=== PATIENT | female | born 1970 | race African-American/Black ===

== ENCOUNTER → 2017-09-13 | Outpatient (CLI) | payer OTHER ==
[2017-09-13 08:59] LABS: Anisocytosis Slight; Basophils % (A) 0 %; Eosinophils # (A) 0.1 k/uL (0-0.7); Eosinophils % (A) 2 %; HCT 39.7 % (34.0-46.0); HGB 12.3 gm/dL (11.4-16.0); Hypochromasia Slight; Lymphocytes # (A) 2.3 k/uL (1.0-4.8); Lymphocytes % (A) 27 %; MCH 25.9 pg (25.0-35.0); MCV 83.5 fL (80.0-100.0); Mean Platelet Volume 6.3; Monocytes # (A) 0.4 k/uL (0-1.0); Monocytes % (A) 4 %; Neutrophils # (A) 5.4 k/uL (1.3-7.7); Neutrophils % (A) 65 %; Platelet Count 429 k/uL (150-450); RBC 4.75 m/uL (3.80-5.40); RDW 16.1 % (11.5-15.5); WBC 8.4 k/uL (3.8-10.6)
[2017-09-13 09:58] LABS: ALT 21 U/L (9-52); AST 16 U/L (14-36); Alkaline Phosphatase 72 U/L (38-126); Anion Gap 11 mmol/L; Blood Urea Nitrogen 8 mg/dL (7-17); C Reactive Protein 19.3 mg/L (<10.0); Calcium 9.2 mg/dL (8.4-10.2); Carbon Dioxide 22 mmol/L (22-30); Chloride 104 mmol/L (98-107); Cholesterol 155 mg/dL (<200); Creatine Kinase 59 U/L (30-135); Glucose 131 mg/dL (74-99); HDL Cholesterol 39 mg/dL (40-60); LDL Cholesterol,Calculated 80 mg/dL (0-99); Potassium 4.3 mmol/L (3.5-5.1); Sodium 137 mmol/L (137-145); Total Bilirubin 0.2 mg/dL (0.2-1.3); Total Protein 7.2 g/dL (6.3-8.2); Triglycerides 180 mg/dL (<150)
[2017-09-13 10:42] LABS: Erythrocyte Sedimentation Rate 21 mm/hr (0-20)
[2017-09-13 19:07] LABS: Hemoglobin A1C 5.9 % (4.0-6.0)
== END | disposition home or self-care (01) ==
LOC: LABWHC1 08:28
PROVIDERS: ATTEND Internal Medicine
DX: D64.9 Anemia, unspecified (principal); E78.5 Hyperlipidemia, unspecified; I10 Essential (primary) hypertension; E55.9 Vitamin D deficiency, unspecified; G62.9 Polyneuropathy, unspecified; G56.03 Carpal tunnel syndrome, bilateral upper limbs; Z72.0 Tobacco use
CPT/HCPCS: 36415; 80053; 80061; 82306; 82550; 83036; 84443; 85025; 85652; 86140

== ENCOUNTER → 2017-10-19 | Outpatient (CLI) | payer OTHER ==
[2017-10-19 08:00] VITALS: BP 131/86; PULSE 83; RESP 18; TEMP 97.6; BMI 34.7
--- NOTE | 2017-10-19 08:45 | P.HPOB ---
History of Present Illness H&P Date: 10/19/17 Chief Complaint: The patient is here for her routine gynecologic exam and mammogram. This is a 47-year-old with an LMP of 07/01/2017. The patient states or periods have been spacing out over the last 2 years. 2 years ago, they were starting to be every 2 or 3 months. During the past year she believes she has had two menses. She states she has been having hot flashes for the past one year. Her periods are relatively short, but when she does have a period, she has lots of cramps. She would like another prescription for Anaprox. She is otherwise without gynecologic complaints. Review of Systems She has lost about 5 pounds over the last 3 years. Respiratory: occasionally she can have a catching sharp sensation when she twists her body and takes a deep breath. She has spoken to Dr. Wood about this. She denies cardiac or G.I. problems. 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 History of Any Multi-Drug Resistant Organisms: None Reported Past Surgical History: Section Additional Past Surgical History / Comment(s): Axillary cyst removed. Past Anesthesia/Blood Transfusion Reactions: No Reported Reaction Past Psychological History: No Psychological Hx Reported Smoking Status: Current every day smoker (Half pack per day) Past Alcohol Use History: Occasional Past Drug Use History: Cocaine (Quit 1996) Additional History: She is single and is not seen anybody at this time. 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 - Past Family History Mother Family Medical History: Cancer (Pancreas) Medications and Allergies Home Medications Medication Instructions Recorded Confirmed Type Lisinopril-Hctz 20-12.5 mg 1 tab PO DAILY 10/19/17 10/19/17 History [Zestoretic 20-12.5] Allergies Allergy/AdvReac Type Severity Reaction Status Date / Time No Known Allergies Allergy Verified 01/09/15 16:58 Exam Vital Signs Temp Pulse Resp BP 10/19/17 07:50 97.6 F 83 18 131/86 Intake and Output 10/18/17 10/19/17 10/19/17 22:59 06:59 14:59 Other: Weight 88.952 kg Height 5'3", BMI 34.7. This is a well-developed well-nourished black female who is alert and oriented times 3 in no acute distress. HEENT: Within normal limits. NECK: Supple without mass or thyromegaly. CHEST AND LUNGS: Clear to auscultation. HEART: Regular rate and rhythm. BREASTS: Are without mass or discharge. AXILLARY EXAM: Negative for adenopathy. BACK: Negative for CVA tenderness. ABDOMEN: Soft, obese, nontender, without palpable masses. PELVIC EXAM: Normal external genitalia. Cervix and vagina appear normal. There is no unusual discharge. There is no evidence of prolapse. The uterus is midposition, nongravid size and nontender. There are no palpable adnexal masses or tenderness. RECTAL EXAM: refused by the patient EXTREMITIES: Nontender. IMPRESSION: 1. 47-year-old perimenopausal female with 2 years of oligomenorrhea and one year of vasomotor symptoms. 2. Mild dysmenorrhea without any significant physical findings. PLAN: 1. Pap smear was performed. 2. Self breast awareness was discussed with the patient. 3. Screening mammogram will be done today. 4. Anaprox DS 1 PO b.i.d. PRN for menstrual pain. An electronic prescription will be sent to [facility] pharmacy on . 5. The patient will keep a menstrual calendar and, she's having menstrual problems or bleeding after 12 months of amenorrhea. 6. Osteoporosis prevention was discussed. 7. She will return in one year.
--- NOTE | 2017-10-19 14:00 | MM ---
Reason for exam: screening (asymptomatic). Last mammogram was performed 3 years and 3 months ago. Physical Findings: A clinical breast exam by your physician is recommended on an annual basis and results should be correlated with mammographic findings. MG Screening Mammo w CAD Bilateral CC and MLO view(s) were taken. Prior study comparison: July 30, 2014, bilateral MG screening mammo w CAD. There are scattered fibroglandular densities. There is benign appearing round calcifications bilaterally.There is no discrete abnormality. Asymmetric breast tissue right anterior medial aspect. ASSESSMENT: Benign, BI-RAD 2 RECOMMENDATION: Routine screening mammogram of both breasts in 1 year.
== END | disposition home or self-care (01) ==
LOC: WWCWWP 07:49
PROVIDERS: ATTEND Obstetrics & Gynecology
DX: Z12.31 Encounter for screening mammogram for malignant neoplasm of breast (principal)
CPT/HCPCS: 77067

== ENCOUNTER → 2019-02-12 | Outpatient (CLI) | payer OTHER ==
[2019-02-12 07:51] LABS: Basophils % (A) 0 %; Eosinophils # (A) 0.1 k/uL (0-0.7); Eosinophils % (A) 2 %; HCT 41.1 % (34.0-46.0); HGB 13.1 gm/dL (11.4-16.0); Hypochromasia Slight; Lymphocytes # (A) 2.5 k/uL (1.0-4.8); Lymphocytes % (A) 29 %; MCH 27.3 pg (25.0-35.0); MCV 85.3 fL (80.0-100.0); Mean Platelet Volume 5.2; Monocytes # (A) 0.3 k/uL (0-1.0); Monocytes % (A) 3 %; Neutrophils # (A) 5.5 k/uL (1.3-7.7); Neutrophils % (A) 64 %; Platelet Count 397 k/uL (150-450); RBC 4.81 m/uL (3.80-5.40); WBC 8.6 k/uL (3.8-10.6)
[2019-02-12 11:38] LABS: Erythrocyte Sedimentation Rate 29 mm/hr (0-20)
[2019-02-12 18:19] LABS: African American GFR (CKD) 100.3 (60.0-200.0); Albumin 4.4 g/dL (3.80-4.90); Albumin/Globulin Ratio 1.69 (1.60-3.17); Anion Gap 4.5 mmol/L (4.00-12.00); BUN/Creat Ratio 17.5 Ratio (12.00-20.00); C Reactive Protein 1.7 mg/dL (0.0-0.8); Calcium 9.6 mg/dL (8.7-10.3); Carbon Dioxide 26.5 mmol/L (21.6-31.8); Chol/HDL Ratio 4.54; Globulin 2.6 g/dL (1.6-3.3); LDL Cholesterol,Calculated 99.6 mg/dL (0.0-131.0); Non-African American GFR(CKD) 86.6 (60.0-200.0); Potassium 4.4 mmol/L (3.5-5.5); Total Bilirubin 0.3 mg/dL (0.3-1.2); VLDL Calculation 31.4 mg/dL (5.00-40.00)
== END | disposition home or self-care (01) ==
LOC: LABWHC1 06:58
PROVIDERS: ATTEND Internal Medicine
DX: D64.9 Anemia, unspecified (principal); J44.9 Chronic obstructive pulmonary disease, unspecified; I10 Essential (primary) hypertension; E78.5 Hyperlipidemia, unspecified; E03.9 Hypothyroidism, unspecified; E55.9 Vitamin D deficiency, unspecified; E66.9 Obesity, unspecified
CPT/HCPCS: 36415; 80053; 80061; 82306; 82550; 84443; 85025; 85652; 86140

== ENCOUNTER → 2020-04-10 | Outpatient (CLI) | payer OTHER ==
[2020-04-10 10:21] LABS: Basophils % (A) 0 %; Eosinophils # (A) 0.1 k/uL (0-0.7); Eosinophils % (A) 1 %; HCT 43.1 % (34.0-46.0); HGB 13.5 gm/dL (11.4-16.0); Hypochromasia Slight; Lymphocytes # (A) 1.9 k/uL (1.0-4.8); Lymphocytes % (A) 20 %; MCH 26.2 pg (25.0-35.0); MCHC 31.3 g/dL (31.0-37.0); MCV 83.7 fL (80.0-100.0); Mean Platelet Volume 6.5; Monocytes # (A) 0.2 k/uL (0-1.0); Monocytes % (A) 2 %; Neutrophils # (A) 7.2 k/uL (1.3-7.7); Neutrophils % (A) 76 %; Platelet Count 450 k/uL (150-450); RBC 5.15 m/uL (3.80-5.40); RDW 14.4 % (11.5-15.5); WBC 9.5 k/uL (3.8-10.6)
--- NOTE | 2020-04-10 10:28 | XR ---
EXAMINATION TYPE: XR chest 2V DATE OF EXAM: 04/10/2020 COMPARISON: None HISTORY: 49-year-old female with cough and wheezing TECHNIQUE: Frontal and lateral views FINDINGS: Heart limits of normal in size. Pulmonary vasculature within normal limits. Mild central peribronchia l cuffing is noted. No consolidation or pleural effusion. IMPRESSION: Mild central peribronchial cuffing could reflect bronchitis or asthma. Heart upper limits of normal i n size.
--- NOTE | 2020-04-10 11:18 | XR ---
EXAMINATION TYPE: XR wrist complete LT DATE OF EXAM: 04/10/2020 COMPARISON: NONE HISTORY: 49-year-old female ongoing wrist pain for 4 months, TECHNIQUE: 4 views FINDINGS: There is some ulnar sided soft tissue swelling at the wrist. Radiocarpal and distal radial ulnar join t as well as the midcarpal compartment appear intact. No acute fracture, subluxation, dislocation. No marginal erosions. Minimal degenerative spurring at the first CMC joint. IMPRESSION: Some ulnar-sided soft tissue swelling may reflect ECU tendinopathy or injury to the TFCC. Clinically correlate. No acute osseous abnormality seen.
[2020-04-10 17:24] LABS: African American GFR (CKD) 86.4 (60.0-200.0); BUN/Creat Ratio 17.78 Ratio (12.00-20.00); Calcium 10.2 mg/dL (8.7-10.3); Non-African American GFR(CKD) 74.6 (60.0-200.0); Potassium 4.8 mmol/L (3.5-5.5)
[2020-04-10 18:37] LABS: Anti-DNA, DS unit <1.0 IU/mL; Cyclic Citrull Pep IgG Unit 0.5 U/mL; Cyclic Citrullinated Pep IgG NEGATIVE (NEGATIVE); DNA Double-Stranded NEGATIVE (NEGATIVE)
[2020-04-12 01:48] LABS: Hemoglobin A1C 6.5 % (4.0-6.0)
== END | disposition home or self-care (01) ==
LOC: LABWHC1 04-09 12:33
PROVIDERS: ATTEND Internal Medicine
DX: M79.89 Other specified soft tissue disorders (principal); M81.0 Age-related osteoporosis without current pathological fracture; M06.9 Rheumatoid arthritis, unspecified; E55.9 Vitamin D deficiency, unspecified; M67.332 Transient synovitis, left wrist
CPT/HCPCS: 36415; 71046; 80048; 83036; 85025; 86038; 86200; 86225; 86431

== ENCOUNTER 2020-06-19 22:02 | Emergency (ER) | payer OTHER ==
--- NOTE | 2020-06-19 23:14 | ED ---
URI HPI - General Chief Complaint: Upper Respiratory Infection Stated Complaint: headache,dizziness Time Seen by Provider: 06/19/20 23:13 Source: patient Mode of arrival: ambulatory Limitations: no limitations - History of Present Illness MD Complaint: fever, cough, nasal congestion, sinus pain Onset/Timin -: days(s) Severity: mild Quality: aching Consistency: constant Improves With: nothing Worsens With: nothing Associated Symptoms: fever, chills, myalgias, headache, nasal congestion, cough Treatments Prior to Arrival: Ibuprofen - Related Data Home Medications Medication Instructions Recorded Confirmed Lisinopril-Hctz 20-12.5 mg 1 tab PO DAILY 10/19/17 10/19/17 [Zestoretic 20-12.5] Previous Rx's Medication Instructions Recorded Naproxen Sodium 550 mg PO BID PRN #25 tablet 10/19/17 metroNIDAZOLE [Flagyl] 500 mg PO BID 7 Days #14 tab 10/26/17 Allergies Allergy/AdvReac Type Severity Reaction Status Date / Time No Known Allergies Allergy Verified 06/19/20 22:11 Review of Systems ROS Statement: Those systems with pertinent positive or pertinent negative responses have been documented in the HPI. ROS Other: All systems not noted in ROS Statement are negative. Constitutional: Reports: fever, chills Eyes: Denies: eye pain, vision change ENT: Reports: congestion. Denies: throat pain Respiratory: Reports: cough. Denies: dyspnea, wheezes Cardiovascular: Denies: chest pain, palpitations, syncope Gastrointestinal: Denies: abdominal pain, vomiting, diarrhea Genitourinary: Denies: dysuria, hematuria Musculoskeletal: Denies: back pain Skin: Denies: rash Neurological: Reports: headache. 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 History of Any Multi-Drug Resistant Organisms: None Reported Past Surgical History: Section Additional Past Surgical History / Comment(s): Axillary cyst removed. Past Anesthesia/Blood Transfusion Reactions: No Reported Reaction Past Psychological History: No Psychological Hx Reported Smoking Status: Current every day smoker Past Alcohol Use History: Occasional Past Drug Use History: Cocaine - Past Family History Mother Family Medical History: Cancer (Pancreas) General Exam Limitations: no limitations General appearance: alert, in no apparent distress Head exam: Present: atraumatic, normocephalic Eye exam: Present: normal appearance, PERRL, EOMI. Absent: scleral icterus, conjunctival injection ENT exam: Present: normal oropharynx Neck exam: Present: normal inspection, full ROM. Absent: meningismus Respiratory exam: Present: normal lung sounds bilaterally. Absent: respiratory distress, wheezes, rales, rhonchi, stridor Cardiovascular Exam: Present: regular rate, normal rhythm, normal heart sounds. Absent: systolic murmur, diastolic murmur, rubs, gallop GI/Abdominal exam: Present: soft. Absent: distended, tenderness, guarding, rebound, rigid Back exam: Present: normal inspection Neurological exam: Present: alert Skin exam: Present: warm, dry, intact, normal color. Absent: rash Course Vital Signs 06/19/20 06/19/20 22:06 23:12 Temperature 101.5 F H Pulse Rate 116 H Respiratory 18 20 Rate Blood Pressure 141/89 O2 Sat by Pulse 100 Oximetry Medical Decision Making - Lab Data Lab Results 06/19/20 Range/Units 22:12 Coronavirus (PCR) Detected A (Not Detectd) Disposition Clinical Impression: COVID-19 Disposition: HOME SELF-CARE Condition: Good Instructions (If sedation given, give patient instructions): Coronavirus Disease 2019 (COVID-19) Is patient prescribed a controlled substance at d/c from ED?: No Referrals: Francesco Wood MD [Primary Care Provider] - 1-2 days
[2020-06-19] MEDS ORDERED: ACET/COD 300 MG/30 MG STARTER PACK 6 TAB BTL PO STA (23:27)
[2020-06-19 23:52] VITALS: BP 140/78; PULSE 100; RESP 18; TEMP 100
== END 2020-06-19 23:45 | disposition home or self-care (01) ==
LOC: EC 22:02
DX: U07.1 COVID-19 (principal); I10 Essential (primary) hypertension; F17.200 Nicotine dependence, unspecified, uncomplicated
CPT/HCPCS: 87635; 99284

== ENCOUNTER 2020-06-22 20:48 | Inpatient (IN) | payer OTHER ==
[2020-06-22] MEDS ORDERED: DEXAMETHASONE SOD PHOSPHATE 4 MG/ML 1 ML VIAL IV STA (22:03)
--- NOTE | 2020-06-22 22:07 | ED ---
SOB HPI - General Chief Complaint: Shortness of Breath Stated Complaint: SOB,Fever,Dizziness Time Seen by Provider: 06/22/20 21:55 Source: patient Mode of arrival: wheelchair Limitations: no limitations - History of Present Illness Initial Comments: This patient is a 49-year-old woman, seen here on June 19 and diagnosed with Franz virus, who returns here with complaints that she feels like she is worsening. Patient states that after she got out of bed this morning she noted that she was lightheaded when she would walk. Since around noon she has been feeling short of breath, mainly with exertion but now also at rest. She does continue to have nonproductive cough, fever and chills, myalgias and a little bit of headache. MD Complaint: shortness of breath Onset/Timin -: days(s) Consistency: constant Improves With: rest Worsens With: exertion Known History Of: other (Covid) Associated Symptoms: fever, cough Treatments Prior to Arrival: none - Related Data Home Oxygen Therapy: No Home Medications Medication Instructions Recorded Confirmed Losartan [Cozaar] 50 mg PO DAILY 06/23/20 06/23/20 Allergies Allergy/AdvReac Type Severity Reaction Status Date / Time No Known Allergies Allergy Verified 06/23/20 08:12 Review of Systems ROS Statement: Those systems with pertinent positive or pertinent negative responses have been documented in the HPI. ROS Other: All systems not noted in ROS Statement are negative. Constitutional: Reports: fever, chills Respiratory: Reports: cough, dyspnea. Denies: hemoptysis Cardiovascular: Reports: dyspnea on exertion. Denies: chest pain, palpitations, edema, syncope Gastrointestinal: Reports: diarrhea. 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 Covid 07/02 History of Any Multi-Drug Resistant Organisms: None Reported Past Surgical History: Section Additional Past Surgical History / Comment(s): Axillary cyst removed. Past Anesthesia/Blood Transfusion Reactions: No Reported Reaction Past Psychological History: No Psychological Hx Reported Smoking Status: Current every day smoker Past Alcohol Use History: Occasional Past Drug Use History: Cocaine, Marijuana - Past Family History Mother Family Medical History: Cancer (Pancreas) General Exam Limitations: no limitations General appearance: alert, in no apparent distress Head exam: Present: atraumatic, normocephalic Eye exam: Present: normal appearance. Absent: scleral icterus, conjunctival injection Neck exam: Present: normal inspection Respiratory exam: Present: respiratory distress, rales (Right base > Left). Absent: wheezes, rhonchi, stridor, accessory muscle use, decreased breath sounds Cardiovascular Exam: Present: regular rate, tachycardia, normal heart sounds. Absent: systolic murmur, diastolic murmur, rubs, gallop GI/Abdominal exam: Present: soft. Absent: distended, tenderness, guarding, rebound, rigid, mass Extremities exam: Present: normal inspection, normal capillary refill. Absent: pedal edema, calf tenderness Back exam: Present: normal inspection Neurological exam: Present: alert Skin exam: Present: warm, dry, intact, normal color. Absent: rash Course Vital Signs 06/22/20 06/23/20 06/23/20 21:44 00:33 00:34 Temperature 98.3 F Pulse Rate 111 H 103 H 102 H Respiratory 26 H 24 22 Rate Blood Pressure 122/70 144/90 O2 Sat by Pulse 82 L 99 99 Oximetry 06/23/20 06/23/20 06/23/20 02:46 04:00 06:58 Temperature Pulse Rate 112 H 128 H 114 H Respiratory 22 36 H 18 Rate Blood Pressure 114/69 143/87 184/94 O2 Sat by Pulse 94 L 94 L 100 Oximetry 06/23/20 07:52 Temperature Pulse Rate 104 H Respiratory 26 H Rate Blood Pressure O2 Sat by Pulse 96 Oximetry Medical Decision Making - Lab Data Result diagrams: 06/22/20 23:17 06/22/20 23:17 Lab Results 06/22/20 06/22/20 06/22/20 Range/Units 23:17 23:17 23:17 WBC 5.9 (3.8-10.6) k/uL RBC 4.86 (3.80-5.40) m/uL Hgb 13.1 (11.4-16.0) gm/dL Hct 39.0 (34.0-46.0) % MCV 80.3 (80.0-100.0) fL MCH 26.9 (25.0-35.0) pg MCHC 33.5 (31.0-37.0) g/dL RDW 14.6 (11.5-15.5) % Plt Count 214 (150-450) k/uL MPV 7.4 Neutrophils % 87 % Lymphocytes % 9 % Monocytes % 2 % Eosinophils % 0 % Basophils % 0 % Neutrophils # 5.2 (1.3-7.7) k/uL Lymphocytes # 0.5 L (1.0-4.8) k/uL Monocytes # 0.1 (0-1.0) k/uL Eosinophils # 0.0 (0-0.7) k/uL Basophils # 0.0 (0-0.2) k/uL PT 10.1 (9.0-12.0) sec INR 0.9 (<1.2) APTT 28.1 (22.0-30.0) sec D-Dimer 1.37 H (<0.60) mg/L FEU Sodium 139 (137-145) mmol/L Potassium 3.9 (3.5-5.1) mmol/L Chloride 104 (98-107) mmol/L Carbon Dioxide 26 (22-30) mmol/L Anion Gap 9 mmol/L BUN 16 (7-17) mg/dL Creatinine 1.04 (0.52-1.04) mg/dL Est GFR (CKD-EPI)AfAm 73 (>60 ml/min/1.73 sqM) Est GFR (CKD-EPI)NonAf 63 (>60 ml/min/1.73 sqM) Glucose 140 H (74-99) mg/dL Plasma Lactic Acid Asher (0.7-2.0) mmol/L Calcium 8.4 (8.4-10.2) mg/dL Magnesium 2.5 H (1.6-2.3) mg/dL Total Bilirubin 0.4 (0.2-1.3) mg/dL AST 127 H (14-36) U/L ALT 32 (4-34) U/L Alkaline Phosphatase 81 (38-126) U/L Lactate Dehydrogenase 3282 H (313-618) U/L C-Reactive Protein 83.2 H (<10.0) mg/L Total Protein 6.7 (6.3-8.2) g/dL Albumin 3.6 (3.5-5.0) g/dL 06/22/20 Range/Units 23:17 WBC (3.8-10.6) k/uL RBC (3.80-5.40) m/uL Hgb (11.4-16.0) gm/dL Hct (34.0-46.0) % MCV (80.0-100.0) fL MCH (25.0-35.0) pg MCHC (31.0-37.0) g/dL RDW (11.5-15.5) % Plt Count (150-450) k/uL MPV Neutrophils % % Lymphocytes % % Monocytes % % Eosinophils % % Basophils % % Neutrophils # (1.3-7.7) k/uL Lymphocytes # (1.0-4.8) k/uL Monocytes # (0-1.0) k/uL Eosinophils # (0-0.7) k/uL Basophils # (0-0.2) k/uL PT (9.0-12.0) sec INR (<1.2) APTT (22.0-30.0) sec D-Dimer (<0.60) mg/L FEU Sodium (137-145) mmol/L Potassium (3.5-5.1) mmol/L Chloride (98-107) mmol/L Carbon Dioxide (22-30) mmol/L Anion Gap mmol/L BUN (7-17) mg/dL Creatinine (0.52-1.04) mg/dL Est GFR (CKD-EPI)AfAm (>60 ml/min/1.73 sqM) Est GFR (CKD-EPI)NonAf (>60 ml/min/1.73 sqM) Glucose (74-99) mg/dL Plasma Lactic Acid Asher 1.1 (0.7-2.0) mmol/L Calcium (8.4-10.2) mg/dL Magnesium (1.6-2.3) mg/dL Total Bilirubin (0.2-1.3) mg/dL AST (14-36) U/L ALT (4-34) U/L Alkaline Phosphatase (38-126) U/L Lactate Dehydrogenase (313-618) U/L C-Reactive Protein (<10.0) mg/L Total Protein (6.3-8.2) g/dL Albumin (3.5-5.0) g/dL - EKG Data -: EKG Interpreted by Me EKG shows normal: sinus rhythm, axis (Normal), intervals (Normal), QRS complexes (Normal), ST-T waves (Normal) Rate: tachycardia (Rate 103 bpm) Disposition Clinical Impression: COVID-19, Pneumonia Disposition: ADMITTED IP TO THIS [facility] Condition: Fair
--- NOTE | 2020-06-22 23:14 | XR ---
EXAMINATION TYPE: XR chest 1V portable DATE OF EXAM: 06/22/2020 COMPARISON: 04/02/2020 HISTORY: Short of breath. Pneumonia. TECHNIQUE: Single view FINDINGS: There is moderate pulmonary airspace edema. Heart size is fairly normal. I see no definite pleural effusion. There are chest leads. IMPRESSION: Moderately severe pulmonary edema is new compared to old exam.
[2020-06-22] MEDS ORDERED: PIPERACILLIN-TAZOBACTAM 3.375 GM in SODIUM CHLORIDE 0.9% 100 ML IVPB STA (23:32)
[2020-06-22 23:42] LABS: Basophils % (A) 0 %; Eosinophils % (A) 0 %; HGB 13.1 gm/dL (11.4-16.0); Lymphocytes # (A) 0.5 k/uL (1.0-4.8); Lymphocytes % (A) 9 %; MCH 26.9 pg (25.0-35.0); MCHC 33.5 g/dL (31.0-37.0); MCV 80.3 fL (80.0-100.0); Mean Platelet Volume 7.4; Monocytes # (A) 0.1 k/uL (0-1.0); Monocytes % (A) 2 %; Neutrophils # (A) 5.2 k/uL (1.3-7.7); Neutrophils % (A) 87 %; Platelet Count 214 k/uL (150-450); RBC 4.86 m/uL (3.80-5.40); RDW 14.6 % (11.5-15.5); WBC 5.9 k/uL (3.8-10.6)
[2020-06-22 23:44] LABS: Albumin 3.6 g/dL (3.5-5.0); C Reactive Protein 83.2 mg/L (<10.0); Calcium 8.4 mg/dL (8.4-10.2); Magnesium 2.5 mg/dL (1.6-2.3); Potassium 3.9 mmol/L (3.5-5.1); Total Bilirubin 0.4 mg/dL (0.2-1.3); Total Protein 6.7 g/dL (6.3-8.2)
[2020-06-22 23:51] LABS: INR 0.9 (<1.2); Partial Thromboplastin Time 28.1 sec (22.0-30.0); Prothrombin Time 10.1 sec (9.0-12.0)
[2020-06-23 00:15] LABS: D-Dimer 1.37 mg/L FEU (<0.60)
[2020-06-23] MEDS ORDERED: MAG HYDROX/AL HYDROX/SIMETH 30 ML CUP PO PRN (01:24)
[2020-06-23] MEDS ORDERED: NALOXONE 0.4 MG/ML 1 ML VIAL IV PRN (01:24)
--- NOTE | 2020-06-23 01:32 | CT ---
EXAM: CT Angiography Chest With Intravenous Contrast CLINICAL HISTORY: ITS.REASON CT Reason: possible PE TECHNIQUE: Axial computed tomographic angiography images of the chest with intravenous contrast. CTDI is 13.27 mGy and DLP is 291.60 mGy-cm. This CT exam was performed using one or more of the following dose reduction techniques: automated exposure control, adjustment of the mA and/or kV according to patient size, and/or use of iterative reconstruction technique. MIP reconstructed images were created and reviewed. COMPARISON: No relevant prior studies available. FINDINGS: Pulmonary arteries: The pulmonary arterial tree is well-opacified with contrast. There is artifact over the lower lobe branches inferiorly. No pulmonary embolism is identified. Aorta: The thoracic aorta is nondilated. There is no aneurysm or dissection. Lungs: Moderate to severe diffuse interstitial infiltrates throughout the mid to lower lungs bilaterally. Consider Covid 19 pneumonia. No mass. Pleural space: No pneumothorax or pleural effusion is seen. Heart: Unremarkable. No cardiomegaly. No significant pericardial effusion. No evidence of RV dysfunction. Mediastinum: Mild bilateral hilar lymphadenopathy with lymph nodes measuring up to 1 cm short axis diameter. Borderline mediastinal lymphadenopathy with AP window lymph node measuring 1 cm short axis diameter. Bones/joints: Mild degenerative changes throughout the mid thoracic spine. No acute fracture or subluxation is seen. Soft tissues: Unremarkable. Lymph nodes: See above. IMPRESSION: Moderate to severe diffuse interstitial infiltrates throughout the mid to lower lungs bilaterally. Consider Covid 19 pneumonia. No evidence of pulmonary embolism or acute aortic abnormality.
[2020-06-23] MEDS: SODIUM CHLORIDE 0.9% 1,000 ML IV SCH ×3 (02:45→22:18)
[2020-06-23] MEDS: guaiFENesin-Coden 100-10MG/5ML 10 ML CUP PO PRN (03:54)
[2020-06-23] MEDS: ACETAMINOPHEN TAB 325 MG TAB PO PRN (03:54)
[2020-06-23] MEDS ORDERED: HEPARIN SODIUM,PORCINE/PF 5,000 UNIT/0.5 ML SYRINGE SQ SCH (08:00)
--- NOTE | 2020-06-23 08:58 | P.CNPUL ---
History of Present Illness Consult date: 06/23/20 Reason for consult: dyspnea, pneumonia History of present illness: 49 yo female patient hospitalized for COVID 19 pneumonia. The patient presen rosa to the hospital because of worsening shortness of breath. Patient had nonproductive cough and fever and chills and myalgia. The patient is currently on oxygen at 15 L high flow. Initially she was on 6 L and she was brought up to 15 L. The chest x-ray is showing diffuse bilateral pulmonary infiltrates consistent with pneumonia. The CAT scan of the chest also showed diffuse bilateral groundglass pulmonary infiltrates both in the upper and lower lobes and the infiltrates are quite extensive at this point in time. The patient has no pulmonary embolism. As for the blood work, the patient has a d-dimer 1.37, the LDH was 3282 and the CRP level is at 83. The patient was given Decadron 6 mg IV. The patient will be placed on Lovenox. The patient will be admitted to the medical floor. The patient symptoms started approximately 6 days ago and since then the patient gradually progressed. Review of Systems Constitutional: Reports fatigue, Reports fever, Reports weakness Eyes: denies as per HPI, denies blurred vision, denies bulging eye, denies decreased vision, denies diplopia, denies discharge, denies dry eye, denies irritation, denies itching, denies pain, denies photophobia, denies loss of peripheral vision, denies loss of vision, denies tunnel vision/blind spots Ears: deny: decreased hearing, ear discharge, earache, tinnitus Ears, nose, mouth and throat: Reports as per HPI Breasts: absent: as per HPI, change in shape, gynecomastia, masses, nipple discharge, pain, skin changes, swelling Cardiovascular: Reports as per HPI, Reports decreased exercise tolerance, Reports dyspnea on exertion Respiratory: Reports cough, Reports dyspnea Gastrointestinal: Reports as per HPI, Reports diarrhea Genitourinary: Reports as per HPI Menstruation: Reports as per HPI Musculoskeletal: Reports as per HPI Musculoskeletal: absent: ankle pain, ankle stiffness, ankle swelling, as per HPI, elbow pain, elbow stiffness, elbow swelling, foot pain, foot stiffness, foot swelling, hand pain, hand stiffness, hand swelling, hip pain, hip stiffness, hip swelling, knee pain, knee stiffness, knee swelling, shoulder pain, shoulder stiffness, shoulder swelling, wrist pain, wrist stiffness, wrist swelling Integumentary: Reports as per HPI Neurological: Reports as per HPI Psychiatric: Reports as per HPI Endocrine: Reports as per HPI Hematologic/Lymphatic: Reports as per HPI Allergic/Immunologic: Reports as per HPI Past Medical History Past Medical History: Hypertension 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 Covid 07/02 History of Any Multi-Drug Resistant Organisms: None Reported Past Surgical History: Section Additional Past Surgical History / Comment(s): Axillary cyst removed. Past Anesthesia/Blood Transfusion Reactions: No Reported Reaction Past Psychological History: No Psychological Hx Reported Smoking Status: Current every day smoker Past Alcohol Use History: Occasional Past Drug Use History: Cocaine, Marijuana - Past Family History Mother Family Medical History: Cancer (Pancreas) Medications and Allergies Home Medications Medication Instructions Recorded Confirmed Type Losartan [Cozaar] 50 mg PO DAILY 06/23/20 06/23/20 History Allergies Allergy/AdvReac Type Severity Reaction Status Date / Time No Known Allergies Allergy Verified 06/23/20 08:12 Physical Exam Vitals: Vital Signs Temp Pulse Resp BP Pulse Ox 06/23/20 07:52 104 H 26 H 96 06/23/20 06:58 114 H 18 184/94 100 06/23/20 04:00 128 H 36 H 143/87 94 L 06/23/20 02:46 112 H 22 114/69 94 L 06/23/20 00:34 102 H 22 144/90 99 06/23/20 00:33 103 H 24 99 06/22/20 21:44 98.3 F 111 H 26 H 122/70 82 L Intake and Output 06/22/20 06/23/20 06/23/20 22:59 06:59 14:59 Other: Weight 81.647 kg The patient is lethargic, comfortable of 15 L, the pulse ox is currently at 70% in the emergency and the patient will be transitioned to high flow oxygen. Airvo Head exam was generally normal. There was no scleral icterus or corneal arcus. Mucous membranes were moist. Neck was supple and without jugular venous distension, thyromegaly, or carotid bruits. Carotids were easily palpable bilaterally. There was no adenopathy. Lungs sounds are showing factors in the mid and lower lung linares bilaterally and there is extensive crackling for now Cardiac exam revealed the PMI to be normally situated and sized. The rhythm was regular and no extrasystoles were noted during several minutes of auscultation. The first and second heart sounds were normal and physiologic splitting of the second heart sound was noted. There were no murmurs, rubs, clicks, or gallops. Abdominal exam revealed normal bowel sounds. The abdomen was soft, non-tender, and without masses, organomegaly, or appreciable enlargement of the abdominal aorta. Examination of the extremities revealed easily palpable radial, femoral and pedal pulses. There was no cyanosis, clubbing or edema. Examination of the skin revealed no evidence of significant rashes, suspicious appearing nevi or other concerning lesions. Neurologically the patient is lethargic and she is weak. There is global weakness. No focal neurological deficit. Cranial nerves are intact. Results - Laboratory Findings CBC and BMP: 06/22/20 23:17 06/22/20 23:17 PT/INR, D-dimer PT 10.1 sec (9.0-12.0) 06/22/20 23:17 INR 0.9 (<1.2) 06/22/20 23:17 D-Dimer 1.37 mg/L FEU (<0.60) H 06/22/20 23:17 Abnormal lab findings: Abnormal Labs 06/22/20 06/22/20 06/22/20 23:17 23:17 23:17 Lymphocytes # 0.5 L D-Dimer 1.37 H Glucose 140 H Magnesium 2.5 H AST 127 H Lactate Dehydrogenase 3282 H C-Reactive Protein 83.2 H - Diagnostic Findings Chest x-ray: image reviewed CT scan - chest: image reviewed Assessment and Plan Plan: 1 acute COVID 19 related pneumonia with secondary respiratory failure. The patient started developing symptoms on 06/17/2020 patient came into the emerge ncy department yesterday and the chest x-ray showing diffuse but the pulmonary infiltrates and sooner findings were also seen on the CT angiogram. The patient is currently on 15 L oxygen by nasal cannula with ongoing oxygen desaturation. 2 acute hypoxic respiratory failure secondary to above 3 elevated inflammatory markers secondary to above 4 fever and constitutional symptoms secondary to above 5 hypertension 6 previous history of substance abuse Plan Switch this patient to Airvo, 3 L with an FiO2 of 100% with an intentional switching this patient to a BiPAP if she fails this intervention Continue Decadron 6 many grams IV every 24 hours Not a candidate for Remdesivir Proceed with Tocilizumab 8 mg/kg IV and order units of, less than plasma Monitor inflammatory markers Lovenox 40 mg subcu every 24 hours Polyvitamin's UDS Condition is critical and will continue to follow and make further recommendations based on her progress. She may ultimately end up in the intensive care unit. High risk for intubation mechanical ventilation.
[2020-06-23] MEDS ORDERED: ZINC SULFATE 220 MG CAP PO SCH (09:00)
[2020-06-23] MEDS ORDERED: CHOLECALCIFEROL 25 MCG (1000 IU) TABLET PO SCH (09:00)
[2020-06-23] MEDS ORDERED: ASCORBIC ACID 500 MG TAB PO SCH (09:00)
[2020-06-23] MEDS: ENOXAPARIN 40 MG/0.4 ML SYRINGE SQ SCH (09:40)
[2020-06-23] MEDS: DEXAMETHASONE SOD PHOSPHATE 10 MG/ML 1 ML VIAL IV SCH (09:41)
[2020-06-23] MEDS: ASCORBIC ACID 500 MG TAB PO SCH (09:42)
[2020-06-23] MEDS: FAMOTIDINE 20 MG TAB PO SCH ×2 (09:42→22:17)
[2020-06-23] MEDS: CHOLECALCIFEROL 25 MCG (1000 IU) TABLET PO SCH (09:42)
[2020-06-23] MEDS: ZINC SULFATE 220 MG CAP PO SCH (09:42)
[2020-06-23] MEDS: LISINOPRIL-HCTZ 20-12.5 MG 1 EACH TAB PO SCH (09:43)
[2020-06-23] MEDS ORDERED: TOCILIZUMAB 640 MG in SODIUM CHLORIDE 0.9% 68 ML IV ONE (10:00)
[2020-06-23 10:28] LABS: Ferritin 2090.9 ng/mL (10.0-291.0)
--- NOTE | 2020-06-23 13:21 | P.HPIM ---
History of Present Illness H&P Date: 06/23/20 (COVID-19 pneumonia.) Chief Complaint: Shortness of breath, fever, dizziness History and physical dictation on 06/23/[address] Wood. Patient presented to the emergency room at [facility] with the chief complaint shortness of breath, fever, dizziness. History of present illness: 49 years old -Cypriot female presented to the emergency room initially on 06/19/2020 with the underlying fever and achy, at that time she received start hiscold2 are in a rapid at about which was detected patient advised at that time to go home and isolates herself. Subsequently patient progressively and respiratory symptoms with the shortness of breath progressed and associated fever and dizziness and came to the emergency room and found that she had Covid pneumonia with the picture of acute pulmonary edema by the chest x-ray. And patient admitted around 2 AM on today for 03/02/2021 also associated with nonproductive cough. And generalized weakness. Patient subsequently admitted with Covid 19 pneumonia and consultation with critical care Dr. Rollins who did see her and start medication as well as started in the ER with the dexamethasone 6 mg IV once daily and the started also other new medication by Dr. Rollins and as well Chest x-ray in the ER indicating moderate pulmonary he had a edema with the consideration of severe pulmonary edema however that was associated with the viral pneumonia Covid. Patient also had a computed tomography scan of the chest with angiogram which indicating moderate to severe diffuse interstitial infiltrate throughout the mid and lower lung linares bilaterally with the confirmation of Covid 19 pneumonia. Patient recently returned from [place] with her boyfriend and currently she gets up in [place] as once she arrived to [place] she become symptomatic and went to the ER. Past medical history: She had history of nicotine dependence History of obesity History of diabetes mellitus type 2 without complication and history of vitamin D deficiency History of COPD. And history of nonspecified Blaum in the breast. Her family history she has 1 daughter and 2 sons. And she had every day smoker in the past not currently. ALLERGY is unknown. Medication was losartan 50 mg once a day. And her blood pressure range at the office 124/82. With the history of hypertension. Patient was treated with Janumet for diabetes mellitus 50/500 twice a day. She had history of colonoscopy by Dr. Tesfaye. Review of system: Patient is conscious alert oriented, she is on high flow of oxygen with the bag able to Blease on her own. Neuropsychiatry was negative Cardiovascular tachycardia associated with the pulmonary disease. And hypertension Pulmonary: Severe shortness of breath with bilateral rhonchi and wheezes throughout lung linares Abdomen no nausea or vomiting or diarrhea or hematochezia or hematemesis. Lower extremities generalized weakness with no history of neurological deficit. Genitourinary no symptoms Endocrine she has history of new onset of diabetes. The rest review of system noncontributory. On the physical exam: Patient seen and evaluated in module 20 in the ER, [facility]. Vital sign : Admission temperature 98.3 F oral, heart rate 111, respiratory rate 26, blood pressure 122/70 with a mean 87, oxygen saturation 82 on the room air. Patient was conscious alert oriented able to communicate no evidence of stroke ambulatory and broad by wheelchair. Head was normocephalic and atraumatic, pupil was equal reactive and conjunctiva was pink sclera was nonicteric Neck was supple no JVD no thyromegaly no lymphadenopathy trachea midline. Chest bilateral rhonchi and wheezes throughout the lung linares with the shortness of breath currently on high flow oxygen. Heart: Tachycardia with sinus rhythm. And intermittent hypertension. Abdomen soft positive bowel sounds no tenderness in the 4 quadrants. The lower extremities no edema and positive pulses. Neurological exam: No lateralizing sign nausea neurodeficit. Assessment: #1 Covid 19 pneumonia #2 respiratory acute failure #3 diabetes mellitus type 2 Plan we'll continue the steroid and Lovenox daily 40 mg as well as patient managed by Dr. Rollins and who started her on a new medication and she is on zinc sulfate, vitamin C ascorbic acid, Orantes Mrs. own, lisinopril HCTZ 20/12 once a daily the antibiotic has been discontinued , Tocilizumab 640 mg IV order wants. By Dr. Pastor We'll continue the current treatment and see how the patient going hopefully improving gradually and she is currently in the ER and she will be admitted subsequently on the floor with the isolation protocol for Covid patient advised to tell her boyfriend to go to be checked as well. 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 Covid 07/02 History of Any Multi-Drug Resistant Organisms: None Reported Past Surgical History: Section Additional Past Surgical History / Comment(s): Axillary cyst removed. Past Anesthesia/Blood Transfusion Reactions: No Reported Reaction Past Psychological History: No Psychological Hx Reported Smoking Status: Current every day smoker Past Alcohol Use History: Occasional Past Drug Use History: Cocaine, Marijuana - Past Family History Mother Family Medical History: Cancer (Pancreas) Medications and Allergies Home Medications Medication Instructions Recorded Confirmed Type Losartan [Cozaar] 50 mg PO DAILY 06/23/20 06/23/20 History Allergies Allergy/AdvReac Type Severity Reaction Status Date / Time No Known Allergies Allergy Verified 06/23/20 08:12 Physical Exam Vitals: Vital Signs Temp Pulse Resp BP Pulse Ox 06/23/20 12:22 102 H 26 H 162/96 91 L 06/23/20 10:58 94 30 H 149/89 92 L 06/23/20 10:17 16 L 30 H 149/89 85 L 06/23/20 07:52 104 H 26 H 96 06/23/20 06:58 114 H 18 184/94 100 06/23/20 04:00 128 H 36 H 143/87 94 L 06/23/20 02:46 112 H 22 114/69 94 L 06/23/20 00:34 102 H 22 144/90 99 06/23/20 00:33 103 H 24 99 06/22/20 21:44 98.3 F 111 H 26 H 122/70 82 L Intake and Output 06/22/20 06/23/20 06/23/20 22:59 06:59 14:59 Other: Weight 81.647 kg Results CBC & Chem 7: 06/22/20 23:17 06/22/20 23:17 Labs: Abnormal Lab Results - Last 24 Hours (Table) 06/22/20 06/22/20 06/22/20 Range/Units 23:17 23:17 23:17 Lymphocytes # 0.5 L (1.0-4.8) k/uL D-Dimer 1.37 H (<0.60) mg/L FEU Glucose 140 H (74-99) mg/dL Magnesium 2.5 H (1.6-2.3) mg/dL Ferritin 2090.9 H (10.0-291.0) ng/mL AST 127 H (14-36) U/L Lactate Dehydrogenase 3282 H (313-618) U/L C-Reactive Protein 83.2 H (<10.0) mg/L Procalcitonin (0.02-0.09) ng/mL 06/22/20 Range/Units 23:17 Lymphocytes # (1.0-4.8) k/uL D-Dimer (<0.60) mg/L FEU Glucose (74-99) mg/dL Magnesium (1.6-2.3) mg/dL Ferritin (10.0-291.0) ng/mL AST (14-36) U/L Lactate Dehydrogenase (313-618) U/L C-Reactive Protein (<10.0) mg/L Procalcitonin 0.13 H (0.02-0.09) ng/mL
[2020-06-23 18:40] LABS: Glucose,Whole Blood 133 mg/dL (75-99)
[2020-06-23] MEDS: INSULIN ASPART (NovoLOG) 100 UNIT/ML VIAL SQ SCH ×3 (18:40→22:16)
[2020-06-23 22:11] LABS: Glucose,Whole Blood 130 mg/dL (75-99)
[2020-06-23 22:23] LABS: Urine Alcohol Negative (Negative); Urine Barbiturate Negative (Negative); Urine Cocaine Negative (Negative); Urine Methadone Negative (Negative); Urine Opiates Positive (Negative); Urine Phencyclidine Negative (Negative)
[2020-06-24] MEDS: ALPRAZolam 0.5 MG TAB PO PRN ×3 (01:23→17:20)
[2020-06-24] MEDS ORDERED: MORPHINE SULFATE 2 MG/ML SYRINGE IVP STA (02:38)
[2020-06-24 02:50] LABS: ABG Base Excess 4.4 mmol/L; ABG HCO3 29 mmol/L (21-25); ABG Oxygen Saturation 86.8 % (94-97); ABG PCO2 48 mmHg (35-45); ABG TCO2 31 mmol/L (19-24); Allen Test Performed? Yes
[2020-06-24 03:35] LABS: ABG PO2 56 mmHg (83-108)
[2020-06-24 03:57] LABS: Glucose,Whole Blood 117 mg/dL (75-99)
[2020-06-24] MEDS ORDERED: MORPHINE SULFATE 4 MG/ML SYRINGE IVP PRN (05:36)
--- NOTE | 2020-06-24 05:37 | P.PN ---
Subjective Progress Note Date: 06/24/20 49 yo female patient hospitalized for COVID 19 pneumonia. The patient present ed to the hospital because of worsening shortness of breath. Patient had nonproductive cough and fever and chills and myalgia. The patient is currently on oxygen at 15 L high flow. Initially she was on 6 L and she was brought up to 15 L. The chest x-ray is showing diffuse bilateral pulmonary infiltrates consistent with pneumonia. The CAT scan of the chest also showed diffuse bilateral groundglass pulmonary infiltrates both in the upper and lower lobes and the infiltrates are quite extensive at this point in time. The patient has no pulmonary embolism. As for the blood work, the patient has a d-dimer 1.37, the LDH was 3282 and the CRP level is at 83. The patient was given Decadron 6 m g IV. The patient will be placed on Lovenox. The patient will be admitted to the medical floor. The patient symptoms started approximately 6 days ago and since then the patient gradually On 06/24/2020, the patient is transferred to the intensive care unit. This transplant occurred early this morning. I saw this patient in intensive care unit this morning. Nevertheless, yesterday she was in the emergency. At a time of my arrival, the patient was desaturating and I put her on high flow oxygen at 6 L with an FiO2 of 100%. Overnight, the patient became more tachypneic and hypoxic. Based on that, the patient got transferred to the intensive care unit and the patient was placed on BiPAP which is currently at a pressure of 12/5 cm of water and FiO2 of 100%. She is currently generating a volume of 450 mL and her respiratory rate is quite high in the low 40s. As such, the patient carries a very high minute ventilation. In terms of her Covid 19 pneumonia, started on Decadron 6 mg IV every 24 hours. The patient was also given Tocilizumab yesterday without any major side effects or toxicities. She remains hemodynamically stable. She is producing adequate amount of urine output. She was a bit anxious yesterday and restless and she was given morphine and Xanax which calmed her down considerably. In terms of her blood work, the blood work is still pending. The chest x-ray is also pending for now. She has improved considerably with morphine which took some of her restlessness and agitation away. She remains on Decadron. She remains on Lovenox 40 mg subcu every 24 margret rs. Objective - Vital Signs Vital signs: Vital Signs Temp 99.2 F 06/24/20 04:00 Pulse 97 06/24/20 05:00 Resp 51 H 06/24/20 05:00 BP 153/97 06/24/20 05:00 Pulse Ox 90 L 06/24/20 05:00 Intake & Output 06/23/20 06/23/20 06/24/20 06:59 18:59 06:59 Intake Total 318 200 Balance 318 200 Weight 81.647 kg 81.647 kg Intake: IV 200 Sodium Chloride 0.9% 1, 200 000 ml @ 100 mls/hr IV . Q10H [facility] Rx#:[id number] Blood Product 318 Ffp Convalescent Plasma 318 Cpd Unit [id number] Other: Voiding Method Bedpan # Voids 2 - Exam The patient is lethargic, and the patient remains a mild degree of respiratory distress even while at a BiPAP at a pressure of 12/5 with an FiO2 of 100% Head exam was generally normal. There was no scleral icterus or corneal arcus. Mucous membranes were moist. Neck was supple and without jugular venous distension, thyromegaly, or carotid bruits. Carotids were easily palpable bilaterally. There was no adenopathy. Lungs sounds are showing factors in the mid and lower lung linares bilaterally and there is extensive crackling for now Cardiac exam revealed the PMI to be normally situated and sized. The rhythm was regular and no extrasystoles were noted during several minutes of auscultation. The first and second heart sounds were normal and physiologic splitting of the second heart sound was noted. There were no murmurs, rubs, clicks, or gallops. Abdominal exam revealed normal bowel sounds. The abdomen was soft, non-tender, and without masses, organomegaly, or appreciable enlargement of the abdominal aorta. Examination of the extremities revealed easily palpable radial, femoral and pedal pulses. There was no cyanosis, clubbing or edema. Examination of the skin revealed no evidence of significant rashes, suspicious appearing nevi or other concerning lesions. Neurologically the patient is lethargic and she is weak. There is global weakness. No focal neurological deficit. Cranial nerves are intact. - Labs CBC & Chem 7: 06/22/20 23:17 06/22/20 23:17 Labs: Abnormal Lab Results - Last 24 Hours (Table) 06/22/20 06/22/20 06/23/20 Range/Units 23:17 23:17 15:09 ABG pCO2 (35-45) mmHg ABG pO2 (83-108) mmHg ABG HCO3 (21-25) mmol/L ABG Total CO2 (19-24) mmol/L ABG O2 Saturation (94-97) % POC Glucose (mg/dL) (75-99) mg/dL Ferritin 2090.9 H (10.0-291.0) ng/mL Procalcitonin 0.13 H (0.02-0.09) ng/mL Urine Opiates Screen Positive A (Negative) ng/mL U Cannabinoids Screen Positive A (Negative) ng/mL 06/23/20 06/23/20 06/24/20 Range/Units 18:38 22:10 02:45 ABG pCO2 48 H (35-45) mmHg ABG pO2 56 L* (83-108) mmHg ABG HCO3 29 H (21-25) mmol/L ABG Total CO2 31 H (19-24) mmol/L ABG O2 Saturation 86.8 L (94-97) % POC Glucose (mg/dL) 133 H 130 H (75-99) mg/dL Ferritin (10.0-291.0) ng/mL Procalcitonin (0.02-0.09) ng/mL Urine Opiates Screen (Negative) ng/mL U Cannabinoids Screen (Negative) ng/mL 06/24/20 Range/Units 03:56 ABG pCO2 (35-45) mmHg ABG pO2 (83-108) mmHg ABG HCO3 (21-25) mmol/L ABG Total CO2 (19-24) mmol/L ABG O2 Saturation (94-97) % POC Glucose (mg/dL) 117 H (75-99) mg/dL Ferritin (10.0-291.0) ng/mL Procalcitonin (0.02-0.09) ng/mL Urine Opiates Screen (Negative) ng/mL U Cannabinoids Screen (Negative) ng/mL Microbiology - Last 24 Hours (Table) 06/22/20 23:15 Blood Culture - Preliminary Blood No Growth after 24 hours 06/22/20 23:10 Blood Culture - Preliminary Blood No Growth after 24 hours Assessment and Plan Plan: 1 acute COVID 19 related pneumonia with secondary respiratory failure. The patient started developing symptoms on 06/17/2020 patient came into the emergency department yesterday and the chest x-ray showing diffuse but the pulmonary infiltrates and sooner findings were also seen on the CT angiogram. The patient is currently in the intensive care unit on a BiPAP at a pressure of 12/6 with an FiO2 of 100%. She has been aggressively treated with a combination of Decadron, she received 2 units of, less than plasma and she was also given Tocilizumab 2 acute hypoxic respiratory failure secondary to above 3 elevated inflammatory markers secondary to above 4 fever and constitutional symptoms secondary to above 5 hypertension 6 previous history of substance abuse Plan Keep the patient on BiPAP at a pressure of 12/6 cm of water with an FiO2 of 100% and gradually wean down the FiO2 to maintain saturation above 90% Continue Decadron 6 many grams IV every 24 hours Not a candidate for Remdesivir Given Tocilizumab 8 mg/kg IV and she is also given a unit of, less than plasma Monitor inflammatory markers Lovenox 40 mg subcu every 24 hours Polyvitamin's UDS Condition is critical and will continue to follow and make further recommendat ions based on her progress. The patient is critically ill. The patient will be kept in ICU. I had asked for respiratory failure requiring intubation mechanical ventilation. Critical care evaluation that was on a more than 30 minutes. Time with Patient: Greater than 30
[2020-06-24] MEDS: MORPHINE SULFATE 2 MG/ML SYRINGE IVP PRN ×4 (06:05→17:37)
[2020-06-24] MEDS: FAMOTIDINE 20 MG TAB PO SCH ×2 (07:32→21:45)
[2020-06-24] MEDS: LISINOPRIL-HCTZ 20-12.5 MG 1 EACH TAB PO SCH (07:32)
[2020-06-24] MEDS: CHOLECALCIFEROL 25 MCG (1000 IU) TABLET PO SCH (07:32)
[2020-06-24] MEDS: INSULIN ASPART (NovoLOG) 100 UNIT/ML VIAL SQ SCH ×4 (07:33→21:44)
[2020-06-24] MEDS: ENOXAPARIN 40 MG/0.4 ML SYRINGE SQ SCH (07:33)
[2020-06-24] MEDS: ZINC SULFATE 220 MG CAP PO SCH (07:33)
[2020-06-24] MEDS: ASCORBIC ACID 500 MG TAB PO SCH (07:33)
[2020-06-24] MEDS: DEXAMETHASONE SOD PHOSPHATE 10 MG/ML 1 ML VIAL IV SCH (07:33)
[2020-06-24] MEDS: SODIUM CHLORIDE 0.9% 1,000 ML IV SCH (07:33)
[2020-06-24 08:30] LABS: African American GFR (CKD) >90 (>60 ml/min/1.73 sqM); Anion Gap 5 mmol/L; Blood Urea Nitrogen 13 mg/dL (7-17); C Reactive Protein 49.8 mg/L (<10.0); Calcium 8.6 mg/dL (8.4-10.2); Carbon Dioxide 31 mmol/L (22-30); Chloride 105 mmol/L (98-107); Glucose 120 mg/dL (74-99); Non-African American GFR(CKD) >90 (>60 ml/min/1.73 sqM); Potassium 4.6 mmol/L (3.5-5.1); Sodium 141 mmol/L (137-145)
[2020-06-24 09:05] LABS: LDH 4177 U/L (313-618)
--- NOTE | 2020-06-24 09:19 | XR ---
EXAMINATION TYPE: XR chest 1V portable DATE OF EXAM: 06/24/2020 Comparison: 06/22/2020 Clinical History: 49-year-old female covid Findings: Right heart margin partially obscured by adjacent opacity. Diffuse groundglass airspace opacity throu ghout the lungs without significant change. No pneumothorax or significant effusion. Impression: Continued diffuse bilateral groundglass COVID pneumonia.
[2020-06-24] MEDS: guaiFENesin-Coden 100-10MG/5ML 10 ML CUP PO PRN ×2 (09:51→17:20)
[2020-06-24 14:16] LABS: Glucose,Whole Blood 127 mg/dL (75-99)
--- NOTE | 2020-06-24 14:36 | PN ---
PROGRESS NOTE A 49-year-old female. OTHER DATA: She is a FULL CODE. Her height is 5 feet 3 inches, weight 81.647 kg. BSA 1.85 m2. BMI 31.9 kg/m2. The patient admitted with the COVID pneumonia with the complication. Her inflammatory markers are elevated with the D-dimer 1.52, as well as her lactate dehydrogenase 4177 and C-reactive protein 49.8. She was treated by Dr. Ndiaye, the Pulmonary and Critical Care. Today seen in the ICU. Her oxygen saturation is 56, and her pH of 7.4 with a pCO2 of 48. Currently, she is on BiPAP with the FiO2 of 100%. The patient currently in the ICU with the intensive care with the BiPAP oxygen for continuation. She is awake, alert and she understands her current problem. Her blood sugar is monitored. Her blood pressure however is diastolic elevation and as well as systolic with the hypertension not well controlled. Her vital signs this morning is 98.5 F oral, pulse rate 99 with the respiratory rate 46 rate per minute, which is high and her blood pressure is 153/90 with the prior to that 168/111, and her saturation is 76, oxygen saturation. The chest x-ray was typical for COVID pneumonia and currently is in supportive with the medication. PHYSICAL EXAMINATION: On examination, the patient is conscious, alert. The pupils are equal, reactive. Her chest, respiratory and expiratory rhonchi. The heart was regular sinus. However, she had elevated blood pressure. The abdomen is soft with positive bowel sounds. Extremities, no edema. She had a Lizarraga catheter with draining clear urine. ASSESSMENT: 1. She is severe hypoxic and secondary to COVID pneumonia and she is on the protocol and treated with the Pulmonary and Critical Care. 2. Hypertension is not well controlled and we will start her on a small dose of amlodipine at bedtime 5 mg as well as the metoprolol succinate in the morning 25 mg as well as continued with the current ROSSY inhibitor that she currently receiving. Depend on the further progress further treatment may be added. MMODL / IJN: [id number] /
[2020-06-24] MEDS ORDERED: DEXAMETHASONE SOD PHOSPHATE 10 MG/ML 1 ML VIAL IV STA (16:41)
[2020-06-24] MEDS: amLODIPine 5 MG TAB PO SCH (17:20)
[2020-06-24] MEDS: METOPROLOL SUCCINATE (ER) 25 MG TAB.ER.24H PO SCH (17:20)
[2020-06-24 17:29] LABS: Glucose,Whole Blood 136 mg/dL (75-99)
[2020-06-24] MEDS: DEXMEDETOMIDINE/0.9% NACL(PMX) 400 MCG in EMPTY BAG 1 BAG IV SCH (21:08)
[2020-06-24 21:27] LABS: Glucose,Whole Blood 145 mg/dL (75-99)
[2020-06-25 03:50] LABS: Basophils # (A) 0.1 k/uL (0-0.2); Basophils % (A) 1 %; Eosinophils % (A) 0 %; HCT 38.7 % (34.0-46.0); HGB 12.2 gm/dL (11.4-16.0); Hypochromasia Slight; Lymphocytes # (A) 0.7 k/uL (1.0-4.8); Lymphocytes % (A) 10 %; MCH 26.1 pg (25.0-35.0); MCHC 31.5 g/dL (31.0-37.0); Mean Platelet Volume 6.9; Monocytes # (A) 0.4 k/uL (0-1.0); Monocytes % (A) 6 %; Neutrophils # (A) 5.7 k/uL (1.3-7.7); Neutrophils % (A) 80 %; Platelet Count 343 k/uL (150-450); RBC 4.66 m/uL (3.80-5.40); WBC 7.1 k/uL (3.8-10.6)
[2020-06-25 04:26] LABS: African American GFR (CKD) >90 (>60 ml/min/1.73 sqM); Anion Gap 6 mmol/L; Blood Urea Nitrogen 18 mg/dL (7-17); C Reactive Protein 17.3 mg/L (<10.0); Calcium 8.6 mg/dL (8.4-10.2); Carbon Dioxide 31 mmol/L (22-30); Chloride 103 mmol/L (98-107); Glucose 153 mg/dL (74-99); Non-African American GFR(CKD) >90 (>60 ml/min/1.73 sqM); Potassium 4.4 mmol/L (3.5-5.1); Sodium 140 mmol/L (137-145)
[2020-06-25 04:35] LABS: D-Dimer 1.28 mg/L FEU (<0.60)
[2020-06-25] MEDS: SODIUM CHLORIDE 0.9% 1,000 ML IV SCH ×3 (04:40→13:52)
[2020-06-25] MEDS: DEXMEDETOMIDINE/0.9% NACL(PMX) 400 MCG in EMPTY BAG 1 BAG IV SCH ×2 (05:06→15:24)
[2020-06-25 06:05] LABS: LDH 3894 U/L (313-618)
[2020-06-25 06:24] LABS: Glucose,Whole Blood 157 mg/dL (75-99)
[2020-06-25] MEDS: INSULIN ASPART (NovoLOG) 100 UNIT/ML VIAL SQ SCH ×2 (06:30→13:51)
[2020-06-25] MEDS: ZINC SULFATE 220 MG CAP PO SCH (09:08)
[2020-06-25] MEDS: amLODIPine 5 MG TAB PO SCH (09:08)
[2020-06-25] MEDS: ENOXAPARIN 40 MG/0.4 ML SYRINGE SQ SCH (09:08)
[2020-06-25] MEDS: DEXAMETHASONE SOD PHOSPHATE 10 MG/ML 1 ML VIAL IV SCH (09:08)
[2020-06-25] MEDS: LISINOPRIL-HCTZ 20-12.5 MG 1 EACH TAB PO SCH (09:08)
[2020-06-25] MEDS: METOPROLOL SUCCINATE (ER) 25 MG TAB.ER.24H PO SCH (09:08)
[2020-06-25] MEDS: FAMOTIDINE 20 MG TAB PO SCH (09:08)
[2020-06-25] MEDS: CHOLECALCIFEROL 25 MCG (1000 IU) TABLET PO SCH (09:09)
[2020-06-25] MEDS: ASCORBIC ACID 500 MG TAB PO SCH (09:10)
--- NOTE | 2020-06-25 09:44 | XR ---
EXAMINATION TYPE: XR chest 1V portable DATE OF EXAM: 06/25/2020 COMPARISON: 06/24/2020 INDICATION: Covid pneumonia TECHNIQUE: Single frontal view of the chest is obtained. FINDINGS: The heart size is upper limits of normal. The pulmonary vasculature is distinct. Diffuse increased lung markings are present bilaterally. Findings are stable from comparison. IMPRESSION: 1. Stable diffuse increased lung markings present bilaterally.
--- NOTE | 2020-06-25 09:59 | P.PN ---
Subjective Progress Note Date: 06/25/20 49 yo female patient hospitalized for COVID 19 pneumonia. The patient present ed to the hospital because of worsening shortness of breath. Patient had nonproductive cough and fever and chills and myalgia. The patient is currently on oxygen at 15 L high flow. Initially she was on 6 L and she was brought up to 15 L. The chest x-ray is showing diffuse bilateral pulmonary infiltrates consistent with pneumonia. The CAT scan of the chest also showed diffuse bilateral groundglass pulmonary infiltrates both in the upper and lower lobes and the infiltrates are quite extensive at this point in time. The patient has no pulmonary embolism. As for the blood work, the patient has a d-dimer 1.37, the LDH was 3282 and the CRP level is at 83. The patient was given Decadron 6 m g IV. The patient will be placed on Lovenox. The patient will be admitted to the medical floor. The patient symptoms started approximately 6 days ago and since then the patient gradually On 06/24/2020, the patient is transferred to the intensive care unit. This transplant occurred early this morning. I saw this patient in intensive care unit this morning. Nevertheless, yesterday she was in the emergency. At a time of my arrival, the patient was desaturating and I put her on high flow oxygen at 6 L with an FiO2 of 100%. Overnight, the patient became more tachypneic and hypoxic. Based on that, the patient got transferred to the intensive care unit and the patient was placed on BiPAP which is currently at a pressure of 12/5 cm of water and FiO2 of 100%. She is currently generating a volume of 450 mL and her respiratory rate is quite high in the low 40s. As such, the patient carries a very high minute ventilation. In terms of her Covid 19 pneumonia, started on Decadron 6 mg IV every 24 hours. The patient was also given Tocilizumab yesterday without any major side effects or toxicities. She remains hemodynamically stable. She is producing adequate amount of urine output. She was a bit anxious yesterday and restless and she was given morphine and Xanax which calmed her down considerably. In terms of her blood work, the blood work is still pending. The chest x-ray is also pending for now. She has improved considerably with morphine which took some of her restlessness and agitation away. She remains on Decadron. She remains on Lovenox 40 mg subcu every 24 margret rs. On 06/25/2020, the patient remains on a BiPAP at a pressure of 14/10 with an FiO2 of 100. She obviously decompensated yesterday. She got transferred to the intensive care unit. She was placed in a foam body positioning while in the BiPAP and she was able to tolerate that. Total of 3 hours. This obviously help with her oxygenation. Her current pulse ox is in the mid 80s. She was progres sing and the patient was placed on Decadron and combination with Tocilizumab and the patient is also on anticoagulation with Lovenox. She is slightly more stable compared to yesterday. She is currently in a supine body position. She is on the same BiPAP setting. D-dimer is at 1.28 and the rest of the inflammatory markers show a LDH of 3894 and the CRP of 17.4. The chest x-ray from today is showing diffuse bilateral pulmonary infiltrates consistent with Covid 19 related pneumonia. The chest x-ray findings probably are looking slightly better compared to yesterday. Otherwise, she is receiving IV fluids of normal saline at the rate of 100 mL an hour. She is producing adequate amount of urine output. No fever. She is less anxious while being on Precedex which is currently running at 0.5 mcg/kg per minute. No hemodynamic changes. No bradycardia. No agitation. No restlessness pH is able to communicate fairly well while being on a BiPAP. Objective - Vital Signs Vital signs: Vital Signs Temp 98.2 F 06/25/20 04:00 Pulse 59 L 06/25/20 07:00 Resp 42 H 06/25/20 07:00 BP 130/82 06/25/20 07:00 Pulse Ox 80 L 06/25/20 07:00 Intake & Output 06/24/20 06/25/20 06/25/20 18:59 06:59 18:59 Intake Total 1700 1281.308 100 Output Total 875 660 75 Balance 825 621.308 25 Weight 81.647 kg 86.545 kg Intake: IV 1200 1200 100 Sodium Chloride 0.9% 1, 1200 1200 100 000 ml @ 100 mls/hr IV . Q10H [facility] Rx#:[id number] Intake, IV Titration 81.308 Amount Dexmedetomidine/0.9% NaCl 81.308 (Pmx) 400 mcg In Empty Bag 1 bag @ Titrate IV . Q0M [facility] Rx#:[id number] Oral 500 Output: Urine 875 660 75 Other: Voiding Method Indwelling Catheter Indwelling Catheter - Exam The patient is lethargic, and the patient remains a mild degree of respiratory distress even while at a BiPAP at a pressure of 14/10 with an FiO2 of 100% Head exam was generally normal. There was no scleral icterus or corneal arcus. Mucous membranes were moist. Neck was supple and without jugular venous distension, thyromegaly, or carotid bruits. Carotids were easily palpable bilaterally. There was no adenopathy. Lungs sounds are showing factors in the mid and lower lung linares bilaterally and there is extensive crackling for now Cardiac exam revealed the PMI to be normally situated and sized. The rhythm was regular and no extrasystoles were noted during several minutes of auscultation. The first and second heart sounds were normal and physiologic splitting of the second heart sound was noted. There were no murmurs, rubs, clicks, or gallops. Abdominal exam revealed normal bowel sounds. The abdomen was soft, non-tender, and without masses, organomegaly, or appreciable enlargement of the abdominal aorta. Examination of the extremities revealed easily palpable radial, femoral and pedal pulses. There was no cyanosis, clubbing or edema. Examination of the skin revealed no evidence of significant rashes, suspicious appearing nevi or other concerning lesions. Neurologically the patient is lethargic and she is weak. There is global weakness. No focal neurological deficit. Cranial nerves are intact. - Labs CBC & Chem 7: 06/25/20 03:36 06/25/20 03:36 Labs: Abnormal Lab Results - Last 24 Hours (Table) 06/24/20 06/24/20 06/24/20 Range/Units 14:14 17:28 21:25 Lymphocytes # (1.0-4.8) k/uL D-Dimer (<0.60) mg/L FEU Carbon Dioxide (22-30) mmol/L BUN (7-17) mg/dL Glucose (74-99) mg/dL POC Glucose (mg/dL) 127 H 136 H 145 H (75-99) mg/dL Lactate Dehydrogenase (313-618) U/L C-Reactive Protein (<10.0) mg/L 06/25/20 06/25/20 06/25/20 Range/Units 03:36 03:36 03:36 Lymphocytes # 0.7 L (1.0-4.8) k/uL D-Dimer 1.28 H (<0.60) mg/L FEU Carbon Dioxide 31 H (22-30) mmol/L BUN 18 H (7-17) mg/dL Glucose 153 H (74-99) mg/dL POC Glucose (mg/dL) (75-99) mg/dL Lactate Dehydrogenase 3894 H (313-618) U/L C-Reactive Protein 17.3 H (<10.0) mg/L 06/25/20 Range/Units 06:22 Lymphocytes # (1.0-4.8) k/uL D-Dimer (<0.60) mg/L FEU Carbon Dioxide (22-30) mmol/L BUN (7-17) mg/dL Glucose (74-99) mg/dL POC Glucose (mg/dL) 157 H (75-99) mg/dL Lactate Dehydrogenase (313-618) U/L C-Reactive Protein (<10.0) mg/L Microbiology - Last 24 Hours (Table) 06/22/20 23:15 Blood Culture - Preliminary Blood No Growth after 48 hours 06/22/20 23:10 Blood Culture - Preliminary Blood No Growth after 48 hours Assessment and Plan Plan: 1 acute COVID 19 related pneumonia with secondary respiratory failure. The patient started developing symptoms on 06/17/2020 with chest x-ray showing diffuse but the pulmonary infiltrates and sooner findings were also seen on the CT angiogram. The patient is currently in the intensive care unit on a BiPAP at a pressure of 14/10 with an FiO2 of 100%. She has been aggressively treated with a combination of Decadron, she received convalescence plasma and she was also given Tocilizumab that she remains on Decadron for now. She is also on Lovenox. She is on BiPAP at a pressure of 14/10 and FiO2 of 100%. She is able to generate a tidal volume of 375 with a respiratory rate of 40-45 and a minute ventilation of 17.8 L. Chest x-ray was noted. 2 acute hypoxic respiratory failure secondary to above 3 elevated inflammatory markers secondary to above 4 fever and constitutional symptoms secondary to above 5 hypertension 6 previous history of substance abuse Plan Keep the patient on BiPAP at a pressure of 14/10 cm of water with an FiO2 of 100% and gradually wean down the FiO2 to maintain saturation above 90% Continue Decadron 6 many grams IV every 24 hours Not a candidate for Remdesivir Given Tocilizumab 8 mg/kg IVand convalescent plasma were given ProMod positioning and this will be repeated for a total of 3 hours today monitor inflammatory markers Lovenox 40 mg subcu every 24 hours Polyvitamin's Condition is critical and will continue to follow and make further recommendations based on her progress. The patient is critically ill. The patient will be kept in ICU. I had asked for respiratory failure requiring intubation mechanical ventilation. Critical care evaluation that was on a more than 30 minutes.
[2020-06-25 12:16] LABS: Glucose,Whole Blood 128 mg/dL (75-99)
--- NOTE | 2020-06-25 16:07 | P.PN ---
Subjective Progress Note Date: 06/25/20 (Covid-19 pneumonia) Principal diagnosis: Diagnosis : Covid 19 pneumonia Diabetes mellitus COPD Smoker Progress note. Dictation date of service 06/25/2020. Patient in ICU on BiPAP and tolerating it well Vital sign: Pulse 64 bpm regular, respiratory rate as still abnormal 48 per minute, blood pressure improved with blood pressure today 135/87, mean blood pressure 103. Oxygen saturation 97/86 fluctuating on BiPAP with the oxygen flow 100. Laboratories: WBC 7.1, hemoglobin 12.2 hematocrit 38.7, MCV 83, platelet count 343, Fibrinogen 3:30, d-dimer 1.208, LDH still elevated marker 3894, C-reactive protein 17.3. POC glucose ranging between [id number] stable. Sodium 140 potassium 4.4, chloride 103, carbon dioxide 31, BUN 18, creatinine 0.73, EGFR for non- more than 90. [id number] exam in ICU Patient isolated currently on BiPAP The head was normocephalic and atraumatic. Neck was supple Chest still scattered rhonchi however improved clinically. Heart regular sinus rhythm and hypertension is improved with the current medication. Abdomen was soft positive bowel sounds no organ enlargement. Extremities no edema and positive pulses neurologically stable Assessment: COVID-19 pneumonia found to be acquired in [place] on her return in the from medication. Underlying hypertension with hypertensive heart disease. Diabetes mellitus2 Still with the high marker, with BiPAP, and hypoxic respiratory failure. Plan: No added medicine Prognosis is still guarded however there is mild clinical improvement. Objective - Vital Signs Vital signs: Vital Signs Temp 97.5 F L 06/25/20 08:00 Pulse 59 L 06/25/20 14:00 Resp 41 H 06/25/20 14:00 BP 135/87 06/25/20 14:00 Pulse Ox 87 L 06/25/20 14:00 Intake & Output 06/24/20 06/25/20 06/25/20 18:59 06:59 18:59 Intake Total 1700 7792.897 1772.000 Output Total 875 660 625 Balance 825 621.308 375.000 Weight 81.647 kg 86.545 kg Intake: IV 1200 1200 800 Sodium Chloride 0.9% 1, 1200 1200 800 000 ml @ 100 mls/hr IV . Q10H [facility] Rx#:[id number] Intake, IV Titration 81.308 100.000 Amount Dexmedetomidine/0.9% NaCl 81.308 100.000 (Pmx) 400 mcg In Empty Bag 1 bag @ Titrate IV . Q0M [facility] Rx#:[id number] Oral 500 100 Output: Urine 875 660 625 Other: Voiding Method Indwelling Catheter Indwelling Catheter Indwelling Catheter - Labs CBC & Chem 7: 06/25/20 03:36 06/25/20 03:36 Labs: Abnormal Lab Results - Last 24 Hours (Table) 06/24/20 06/24/20 06/25/20 Range/Units 17:28 21:25 03:36 Lymphocytes # 0.7 L (1.0-4.8) k/uL D-Dimer (<0.60) mg/L FEU Carbon Dioxide (22-30) mmol/L BUN (7-17) mg/dL Glucose (74-99) mg/dL POC Glucose (mg/dL) 136 H 145 H (75-99) mg/dL Lactate Dehydrogenase (313-618) U/L C-Reactive Protein (<10.0) mg/L 06/25/20 06/25/20 06/25/20 Range/Units 03:36 03:36 06:22 Lymphocytes # (1.0-4.8) k/uL D-Dimer 1.28 H (<0.60) mg/L FEU Carbon Dioxide 31 H (22-30) mmol/L BUN 18 H (7-17) mg/dL Glucose 153 H (74-99) mg/dL POC Glucose (mg/dL) 157 H (75-99) mg/dL Lactate Dehydrogenase 3894 H (313-618) U/L C-Reactive Protein 17.3 H (<10.0) mg/L 06/25/20 Range/Units 12:15 Lymphocytes # (1.0-4.8) k/uL D-Dimer (<0.60) mg/L FEU Carbon Dioxide (22-30) mmol/L BUN (7-17) mg/dL Glucose (74-99) mg/dL POC Glucose (mg/dL) 128 H (75-99) mg/dL Lactate Dehydrogenase (313-618) U/L C-Reactive Protein (<10.0) mg/L Microbiology - Last 24 Hours (Table) 06/22/20 23:15 Blood Culture - Preliminary Blood No Growth after 48 hours 06/22/20 23:10 Blood Culture - Preliminary Blood No Growth after 48 hours
[2020-06-25 17:02] LABS: Glucose,Whole Blood 141 mg/dL (75-99)
[2020-06-25] MEDS ORDERED: DEXMEDETOMIDINE/0.9% NACL(PMX) 400 MCG in EMPTY BAG 1 BAG IV SCH (21:30)
[2020-06-25 22:09] LABS: Glucose,Whole Blood 133 mg/dL (75-99)
[2020-06-26] MEDS: DEXMEDETOMIDINE/0.9% NACL(PMX) 400 MCG in EMPTY BAG 1 BAG IV SCH ×3 (00:39→22:50)
[2020-06-26] MEDS: FAMOTIDINE 20 MG TAB PO SCH ×3 (01:33→20:27)
[2020-06-26] MEDS: INSULIN ASPART (NovoLOG) 100 UNIT/ML VIAL SQ SCH ×5 (01:33→21:41)
[2020-06-26] MEDS: SODIUM CHLORIDE 0.9% 1,000 ML IV SCH ×3 (02:02→21:42)
[2020-06-26 05:43] LABS: Basophils # (A) 0.1 k/uL (0-0.2); Basophils % (A) 1 %; Eosinophils % (A) 0 %; HCT 39.6 % (34.0-46.0); Lymphocytes # (A) 0.8 k/uL (1.0-4.8); Lymphocytes % (A) 10 %; MCH 26.4 pg (25.0-35.0); MCHC 32.9 g/dL (31.0-37.0); MCV 80.5 fL (80.0-100.0); Mean Platelet Volume 7.4; Monocytes # (A) 0.6 k/uL (0-1.0); Monocytes % (A) 7 %; Neutrophils # (A) 6.2 k/uL (1.3-7.7); Neutrophils % (A) 78 %; Platelet Count 285 k/uL (150-450); RBC 4.92 m/uL (3.80-5.40); RDW 14.4 % (11.5-15.5); WBC 7.9 k/uL (3.8-10.6)
[2020-06-26 06:03] LABS: African American GFR (CKD) >90 (>60 ml/min/1.73 sqM); Anion Gap 5 mmol/L; Blood Urea Nitrogen 23 mg/dL (7-17); C Reactive Protein 11.2 mg/L (<10.0); Calcium 8.5 mg/dL (8.4-10.2); Carbon Dioxide 31 mmol/L (22-30); Chloride 102 mmol/L (98-107); Glucose 138 mg/dL (74-99); Non-African American GFR(CKD) >90 (>60 ml/min/1.73 sqM); Potassium 3.8 mmol/L (3.5-5.1); Sodium 138 mmol/L (137-145)
[2020-06-26 06:17] LABS: LDH 3864 U/L (313-618)
[2020-06-26] MEDS ORDERED: Potassium Replacement Protocol 1 EACH MISC MISCELLANE PRN (07:22)
[2020-06-26] MEDS ORDERED: POTASSIUM CHLORIDE ER 20 MEQ TAB.ER PO SCH (08:00)
[2020-06-26] MEDS: CHOLECALCIFEROL 25 MCG (1000 IU) TABLET PO SCH (08:31)
[2020-06-26] MEDS: amLODIPine 5 MG TAB PO SCH (08:31)
[2020-06-26] MEDS: ENOXAPARIN 40 MG/0.4 ML SYRINGE SQ SCH ×2 (08:31→20:26)
[2020-06-26] MEDS: ASCORBIC ACID 500 MG TAB PO SCH (08:31)
[2020-06-26] MEDS: DEXAMETHASONE SOD PHOSPHATE 10 MG/ML 1 ML VIAL IV SCH (08:31)
[2020-06-26] MEDS: METOPROLOL SUCCINATE (ER) 25 MG TAB.ER.24H PO SCH (08:32)
[2020-06-26] MEDS: ZINC SULFATE 220 MG CAP PO SCH (08:32)
[2020-06-26] MEDS: LISINOPRIL-HCTZ 20-12.5 MG 1 EACH TAB PO SCH (08:32)
--- NOTE | 2020-06-26 09:19 | XR ---
EXAMINATION TYPE: XR chest 1V portable DATE OF EXAM: 06/26/2020 COMPARISON: 06/25/2020 INDICATION: COVID TECHNIQUE: Single frontal view of the chest is obtained. FINDINGS: The heart size is mildly prominent. The pulmonary vasculature is normal. There is diffuse increased lung markings present bilaterally. No significant interval change is evide nt. IMPRESSION: 1. Stable diffuse infiltrate present bilaterally throughout the bilateral lung linares
--- NOTE | 2020-06-26 09:22 | P.PN ---
Subjective Progress Note Date: 06/26/20 49 yo female patient hospitalized for COVID 19 pneumonia. The patient present ed to the hospital because of worsening shortness of breath. Patient had nonproductive cough and fever and chills and myalgia. The patient is currently on oxygen at 15 L high flow. Initially she was on 6 L and she was brought up to 15 L. The chest x-ray is showing diffuse bilateral pulmonary infiltrates consistent with pneumonia. The CAT scan of the chest also showed diffuse bilateral groundglass pulmonary infiltrates both in the upper and lower lobes and the infiltrates are quite extensive at this point in time. The patient has no pulmonary embolism. As for the blood work, the patient has a d-dimer 1.37, the LDH was 3282 and the CRP level is at 83. The patient was given Decadron 6 m g IV. The patient will be placed on Lovenox. The patient will be admitted to the medical floor. The patient symptoms started approximately 6 days ago and since then the patient gradually On 06/24/2020, the patient is transferred to the intensive care unit. This transplant occurred early this morning. I saw this patient in intensive care unit this morning. Nevertheless, yesterday she was in the emergency. At a time of my arrival, the patient was desaturating and I put her on high flow oxygen at 6 L with an FiO2 of 100%. Overnight, the patient became more tachypneic and hypoxic. Based on that, the patient got transferred to the intensive care unit and the patient was placed on BiPAP which is currently at a pressure of 12/5 cm of water and FiO2 of 100%. She is currently generating a volume of 450 mL and her respiratory rate is quite high in the low 40s. As such, the patient carries a very high minute ventilation. In terms of her Covid 19 pneumonia, started on Decadron 6 mg IV every 24 hours. The patient was also given Tocilizumab yesterday without any major side effects or toxicities. She remains hemodynamically stable. She is producing adequate amount of urine output. She was a bit anxious yesterday and restless and she was given morphine and Xanax which calmed her down considerably. In terms of her blood work, the blood work is still pending. The chest x-ray is also pending for now. She has improved considerably with morphine which took some of her restlessness and agitation away. She remains on Decadron. She remains on Lovenox 40 mg subcu every 24 margret rs. On 06/25/2020, the patient remains on a BiPAP at a pressure of 14/10 with an FiO2 of 100. She obviously decompensated yesterday. She got transferred to the intensive care unit. She was placed in a foam body positioning while in the BiPAP and she was able to tolerate that. Total of 3 hours. This obviously help with her oxygenation. Her current pulse ox is in the mid 80s. She was progres sing and the patient was placed on Decadron and combination with Tocilizumab and the patient is also on anticoagulation with Lovenox. She is slightly more stable compared to yesterday. She is currently in a supine body position. She is on the same BiPAP setting. D-dimer is at 1.28 and the rest of the inflammatory markers show a LDH of 3894 and the CRP of 17.4. The chest x-ray from today is showing diffuse bilateral pulmonary infiltrates consistent with Covid 19 related pneumonia. The chest x-ray findings probably are looking slightly better compared to yesterday. Otherwise, she is receiving IV fluids of normal saline at the rate of 100 mL an hour. She is producing adequate amount of urine output. No fever. She is less anxious while being on Precedex which is currently running at 0.5 mcg/kg per minute. No hemodynamic changes. No bradycardia. No agitation. No restlessness pH is able to communicate fairly well while being on a BiPAP. 06/26/2020, the patient is being seen for a follow-up. She is BiPAP dependent and she remains on a BiPAP at a pressure of 14/10 with an FiO2 of 95%. The incision same sitting exacerbates with some limited improvement in oxygenation and limited And FiO2. Current pulse ox is 94%. She managed to go in a prone body positioning for several hours yesterday and currently she is back supine and she's sleeping on her left side for now. She is quite comfortable at this point in time. She is awake and communicating. She is becoming progressively more weak and debilitated. She is also anxious. Repeat chest x-ray was done today and the findings are essentially stable compared to yesterday.. The patient remains on IV Decadron. She received Tocilizumab and she also received convalescent plasma. She is on Lovenox also for anticoagulation. In terms of her markers, the d-dimer currently is at 8.87 and the LDH level is currently at 3864 and the CRP is at 11.2. She is still on Precedex which is running at 0.7 mcg/kg per minute. Oral intake is minimal as the patient is strictly BiPAP dependent and she desaturates once off the BiPAP. IV fluids are running at the rate of 100 mL an hour of normal saline. Objective - Vital Signs Vital signs: Vital Signs Temp 98.5 F 06/26/20 08:00 Pulse 63 06/26/20 08:00 Resp 42 H 06/26/20 08:00 BP 154/88 06/26/20 08:00 Pulse Ox 92 L 06/26/20 08:00 Intake & Output 06/25/20 06/26/20 06/26/20 18:59 06:59 18:59 Intake Total 1919.814 6160.917 190.083 Output Total 965 1400 90 Balance 435.000 -90.083 100.083 Weight 85.7 kg Intake: IV 1200 1200 100 Sodium Chloride 0.9% 1, 1200 1200 100 000 ml @ 100 mls/hr IV . Q10H [facility] Rx#:[id number] Intake, IV Titration 100.000 109.917 90.083 Amount Dexmedetomidine/0.9% NaCl 100.000 109.917 90.083 (Pmx) 400 mcg In Empty Bag 1 bag @ Titrate IV . Q0M [facility] Rx#:[id number] Oral 100 Output: Urine 965 1400 90 Other: Voiding Method Indwelling Catheter Indwelling Catheter - Exam The patient is lethargic, and the patient remains a mild degree of respiratory distress even while at a BiPAP at a pressure of 14/10 with an FiO2 of 95% Head exam was generally normal. There was no scleral icterus or corneal arcus. Mucous membranes were moist. Neck was supple and without jugular venous distension, thyromegaly, or carotid bruits. Carotids were easily palpable bilaterally. There was no adenopathy. Lungs sounds are showing factors in the mid and lower lung linares bilaterally and there is extensive crackling for now Cardiac exam revealed the PMI to be normally situated and sized. The rhythm was regular and no extrasystoles were noted during several minutes of auscultation. The first and second heart sounds were normal and physiologic splitting of the second heart sound was noted. There were no murmurs, rubs, clicks, or gallops. Abdominal exam revealed normal bowel sounds. The abdomen was soft, non-tender, and without masses, organomegaly, or appreciable enlargement of the abdominal aorta. Examination of the extremities revealed easily palpable radial, femoral and pedal pulses. There was no cyanosis, clubbing or edema. Examination of the skin revealed no evidence of significant rashes, suspicious appearing nevi or other concerning lesions. Neurologically the patient is lethargic and she is weak. There is global we akness. No focal neurological deficit. Cranial nerves are intact. - Labs CBC & Chem 7: 06/26/20 05:06/26/20 05: Labs: Abnormal Lab Results - Last 24 Hours (Table) 06/25/20 06/25/20 06/25/20 Range/Units 12:15 17:01 22:07 Lymphocytes # (1.0-4.8) k/uL D-Dimer (<0.60) mg/L FEU Carbon Dioxide (22-30) mmol/L BUN (7-17) mg/dL Glucose (74-99) mg/dL POC Glucose (mg/dL) 128 H 141 H 133 H (75-99) mg/dL Lactate Dehydrogenase (313-618) U/L C-Reactive Protein (<10.0) mg/L 06/26/20 06/26/20 06/26/20 Range/Units 05:27 05:27 05:27 Lymphocytes # 0.8 L (1.0-4.8) k/uL D-Dimer 8.87 H (<0.60) mg/L FEU Carbon Dioxide 31 H (22-30) mmol/L BUN 23 H (7-17) mg/dL Glucose 138 H (74-99) mg/dL POC Glucose (mg/dL) (75-99) mg/dL Lactate Dehydrogenase 3864 H (313-618) U/L C-Reactive Protein 11.2 H (<10.0) mg/L Microbiology - Last 24 Hours (Table) 06/22/20 23:15 Blood Culture - Preliminary Blood No Growth after 72 hours 06/22/20 23:10 Blood Culture - Preliminary Blood No Growth after 72 hours Assessment and Plan Plan: 1 acute COVID 19 related pneumonia with secondary respiratory failure. The patient started developing symptoms on 06/17/2020 with chest x-ray showing diffuse but the pulmonary infiltrates and sooner findings were also seen on the CT angiogram. The patient is currently in the intensive care unit on a BiPAP at a pressure of 14/10 with an FiO2 of 95%. She has been aggressively treated with a combination of Decadron, she received convalescence plasma and she was also given Tocilizumab that she remains on Decadron for now. She is also on Lovenox. The patient has a very limited reserve in terms of BiPAP support and the patient is very much dependent to the point where she easily desaturates with movement or even while taken off the BiPAP for some sips of water. As such, she is falling behind on her nutrition. She is on Precedex for restlessness and agitation in the Precedex has helped her become quite successfully mechanical ventilator. She is doing daily prone positioning. 2 acute hypoxic respiratory failure secondary to above 3 elevated inflammatory markers secondary to above, d-dimer is elevated 4 fever and constitutional symptoms secondary to above 5 hypertension 6 previous history of substance abuse Plan Keep the patient on BiPAP at a pressure of 14/10 cm of water and titrated FiO2. Current pulse ox is around 93% Continue Decadron 6 many grams IV every 24 hours Not a candidate for Remdesivir Given Tocilizumab 8 mg/kg IVand convalescent plasma were given Pronepositioning and this will be repeated for a total of 3 hours today monitor inflammatory markers Lovenox 40 mg subcu every 12 hours on d-dimer is elevated Polyvitamin's PICC line insertion today Condition is critical and will continue to follow and make further recommendations based on her progress. The patient is critically ill. The patient will be kept in ICU. I had asked for respiratory failure requiring intubation mechanical ventilation. Critical care evaluation that was on a more than 30 minutes. Time with Patient: Greater than 30
[2020-06-26] MEDS: MORPHINE SULFATE 2 MG/ML SYRINGE IVP PRN (09:25)
[2020-06-26 11:22] LABS: Glucose,Whole Blood 172 mg/dL (75-99)
--- NOTE | 2020-06-26 13:15 | P.PN ---
Subjective Progress Note Date: 06/26/20 (Condition still guarded to serious) Dictation the progress note Date of service 06/26/[address] Wood Patient seen and evaluated in the ICU room #26 71 Patient currently on BiPAP Vital sign temperature 98.2, pulse rate 63 respiratory rate 40 per minute labored, blood pressure 143/91, mean 108, oxygen saturation on BiPAP 96 with the FiO2 95%. Patient could not tolerate removing BiPAP even for a few minutes with the severe desaturation. On exam [id number] in the ICU Patient is still conscious alert bleeding through the BiPAP and oxygen with the fast respiratory rate supported with the oxygen and supported with Precedex IV, anticoagulant Lovenox 40 mg twice a day. Head was normocephalic and atraumatic pupils equal reactive Neck was supple she have difficulty of swallowing with the dryness Chest she had underlying rapid respiratory rate with the underlying viral infection and pneumonia and stiffness of the lung. Associated with scattered rhonchi. Heart regular sinus rhythm and the blood pressure fairly stable. Abdomen soft positive bowel sounds Extremities no edema and positive pulses Genitourinary she had a [address] Laboratories D-dimer currently 8.87 which is increased prognostic value towards worsening condition. Her level of d-dimer on the O June 12 0.28, on June 24 1.52 and on admission 1.37. LDH currently 3864, on 06/25 LDH 3894, on 06/24 4177 and on 06/22 3282. CRP today is 11.2, on 06/1416.3 and on 06/1348.8, on 06/1182.2. To be improving. Diabetes mellitus fairly well controlled with the fasting blood sugar in a.m. 138, and monitor with the POC glucose. Impression: #1 still hypoxemic with acute respiratory distress secondary to Covid-19 #2 C ovid pneumonia Condition still guarded to serious. Plan continue current medication monitored seen by critical care Dr. Pastor Objective - Vital Signs Vital signs: Vital Signs Temp 98.2 F 06/26/20 12:00 Pulse 63 06/26/20 12:00 Resp 40 H 06/26/20 12:00 BP 143/91 06/26/20 12:00 Pulse Ox 96 06/26/20 12:00 Intake & Output 06/25/20 06/26/20 06/26/20 18:59 06:59 18:59 Intake Total 1638.403 0085.917 690.083 Output Total 965 1400 510 Balance 435.000 -90.083 180.083 Weight 85.7 kg Intake: IV 1200 1200 600 Sodium Chloride 0.9% 1, 1200 1200 600 000 ml @ 100 mls/hr IV . Q10H [facility] Rx#:[id number] Intake, IV Titration 100.000 109.917 90.083 Amount Dexmedetomidine/0.9% NaCl 100.000 109.917 90.083 (Pmx) 400 mcg In Empty Bag 1 bag @ Titrate IV . Q0M [facility] Rx#:[id number] Oral 100 Output: Urine 965 1400 510 Other: Voiding Method Indwelling Catheter Indwelling Catheter - Labs CBC & Chem 7: 06/26/20 05:27 06/26/20 05:27 Labs: Abnormal Lab Results - Last 24 Hours (Table) 06/25/20 06/25/20 06/26/20 Range/Units 17:01 22:07 05:27 Lymphocytes # 0.8 L (1.0-4.8) k/uL D-Dimer (<0.60) mg/L FEU Carbon Dioxide (22-30) mmol/L BUN (7-17) mg/dL Glucose (74-99) mg/dL POC Glucose (mg/dL) 141 H 133 H (75-99) mg/dL Lactate Dehydrogenase (313-618) U/L C-Reactive Protein (<10.0) mg/L 06/26/20 06/26/20 06/26/20 Range/Units 05:27 05:27 11:20 Lymphocytes # (1.0-4.8) k/uL D-Dimer 8.87 H (<0.60) mg/L FEU Carbon Dioxide 31 H (22-30) mmol/L BUN 23 H (7-17) mg/dL Glucose 138 H (74-99) mg/dL POC Glucose (mg/dL) 172 H (75-99) mg/dL Lactate Dehydrogenase 3864 H (313-618) U/L C-Reactive Protein 11.2 H (<10.0) mg/L Microbiology - Last 24 Hours (Table) 06/22/20 23:15 Blood Culture - Preliminary Blood No Growth after 72 hours 06/22/20 23:10 Blood Culture - Preliminary Blood No Growth after 72 hours
[2020-06-26] MEDS ORDERED: LIDOCAINE 1% INJ 10MG/ML (20 ML MDV) ONE (15:25)
[2020-06-26] MEDS ORDERED: LIDOCAINE 1% INJ 10MG/ML (10 ML MDV) SQ ONE (15:51)
[2020-06-26] MEDS: ALPRAZolam 0.5 MG TAB PO PRN ×2 (16:05→23:40)
--- NOTE | 2020-06-26 16:23 | XR ---
EXAMINATION TYPE: XR chest 1V confirm line [facility] DATE OF EXAM: 06/26/2020 CLINICAL HISTORY: PICC line insertion TECHNIQUE: Single AP portable upright view of the chest is obtained. COMPARISON: Chest x-ray from earlier today an older studies FINDINGS: New right-sided PICC line terminates in right atrium. Stable mild cardiomegaly. Stable pablo ateral diffuse reticulonodular opacities consistent with known covid infection. No pleural effusion o r pneumothorax seen. Osseous structures are intact. IMPRESSION: As above.
--- NOTE | 2020-06-26 17:01 | IR ---
EXAMINATION TYPE: IR cvc insert >=5 years DATE OF EXAM: 06/26/2020 COMPARISON: NONE HISTORY: Needs long-term intravenous access for antibiotics, infection FINDINGS: Maximal barrier technique was utilized. Hand hygiene obtained with soap and water and alco hol-based hand rub. The skin overlying the right upper extremity vein was localized with ultrasound a nd noted to be compressible and patent by ultrasound. An ultrasound image was obtained and submitted on patient's chart. Sterile technique utilized with the ultrasound machine. The skin overlying was p repped and draped and Lidocaine used for local anesthesia. A skin john was made with a scalpel. Acc ess was gained to the vein under direct ultrasound guidance with a 21-gauge needle and a 0.018 inch w godfrey was advanced. Access site was dilated with a peel-away sheath and the catheter tailored to lengt h. Catheter advanced centrally and a post procedure chest x-ray verified placement with tip at the r ight atrium, catheter withdrawn 2 cm. Catheter was fixed to the skin and a sterile dressing placed. Hemostasis achieved and the catheter was aspirated and flushed with sterile saline. The patient rem ained in stable condition. IMPRESSION: STATUS POST ULTRASOUND GUIDED PICC LINE PLACEMENT, READY FOR USE. THIS PROCEDURE WAS PER FORMED BY THE UNDERSIGNED.
[2020-06-26 17:29] LABS: Glucose,Whole Blood 164 mg/dL (75-99)
[2020-06-26] MEDS ORDERED: CLEVIDIPINE BUTYRATE 25 MG/50 ML VIAL IV ONE (18:52)
[2020-06-26] MEDS: CLEVIDIPINE BUTYRATE 25 MG in EMPTY BAG 1 BAG IV SCH (18:54)
[2020-06-26] MEDS: guaiFENesin-Coden 100-10MG/5ML 10 ML CUP PO PRN (20:26)
[2020-06-26 20:42] LABS: Glucose,Whole Blood 129 mg/dL (75-99)
[2020-06-27] MEDS: CLEVIDIPINE BUTYRATE 25 MG in EMPTY BAG 1 BAG IV SCH ×2 (04:20→21:02)
[2020-06-27 05:51] LABS: HCT 38.7 % (34.0-46.0); HGB 12.8 gm/dL (11.4-16.0); MCH 26.6 pg (25.0-35.0); MCHC 33.1 g/dL (31.0-37.0); MCV 80.4 fL (80.0-100.0); Mean Platelet Volume 7.8; Platelet Count 237 k/uL (150-450); RBC 4.82 m/uL (3.80-5.40); RDW 14.5 % (11.5-15.5); WBC 8.6 k/uL (3.8-10.6)
[2020-06-27] MEDS: DEXMEDETOMIDINE/0.9% NACL(PMX) 400 MCG in EMPTY BAG 1 BAG IV SCH ×3 (06:00→22:46)
[2020-06-27 06:10] LABS: ALT 101 U/L (4-34); AST 96 U/L (14-36); African American GFR (CKD) >90 (>60 ml/min/1.73 sqM); Albumin 3.4 g/dL (3.5-5.0); Alkaline Phosphatase 210 U/L (38-126); Anion Gap 2 mmol/L; Blood Urea Nitrogen 18 mg/dL (7-17); C Reactive Protein 7.4 mg/L (<10.0); Calcium 8.6 mg/dL (8.4-10.2); Carbon Dioxide 34 mmol/L (22-30); Chloride 100 mmol/L (98-107); Glucose 114 mg/dL (74-99); Non-African American GFR(CKD) >90 (>60 ml/min/1.73 sqM); Potassium 3.4 mmol/L (3.5-5.1); Sodium 136 mmol/L (137-145); Total Bilirubin 0.6 mg/dL (0.2-1.3); Total Protein 6.3 g/dL (6.3-8.2)
[2020-06-27 06:52] LABS: Glucose,Whole Blood 106 mg/dL (75-99)
[2020-06-27] MEDS: INSULIN ASPART (NovoLOG) 100 UNIT/ML VIAL SQ SCH ×4 (06:55→21:27)
[2020-06-27 07:00] LABS: LDH 3149 U/L (313-618)
[2020-06-27] MEDS: amLODIPine 5 MG TAB PO SCH (08:39)
[2020-06-27] MEDS: SODIUM CHLORIDE 0.9% 1,000 ML IV SCH ×3 (08:39→21:32)
[2020-06-27] MEDS: ASCORBIC ACID 500 MG TAB PO SCH (08:39)
[2020-06-27] MEDS: FAMOTIDINE 20 MG TAB PO SCH ×2 (08:40→21:04)
[2020-06-27] MEDS: CHOLECALCIFEROL 25 MCG (1000 IU) TABLET PO SCH (08:40)
[2020-06-27] MEDS: LISINOPRIL-HCTZ 20-12.5 MG 1 EACH TAB PO SCH (08:40)
[2020-06-27] MEDS: ENOXAPARIN 40 MG/0.4 ML SYRINGE SQ SCH ×2 (08:40→21:03)
[2020-06-27] MEDS: DEXAMETHASONE SOD PHOSPHATE 10 MG/ML 1 ML VIAL IV SCH (08:40)
[2020-06-27] MEDS: METOPROLOL SUCCINATE (ER) 25 MG TAB.ER.24H PO SCH (08:41)
[2020-06-27] MEDS: POTASSIUM CHLORIDE ER 20 MEQ TAB.ER PO SCH ×2 (08:41→13:20)
[2020-06-27] MEDS: ZINC SULFATE 220 MG CAP PO SCH (08:41)
[2020-06-27] MEDS: guaiFENesin-Coden 100-10MG/5ML 10 ML CUP PO PRN ×2 (09:19→22:45)
[2020-06-27] MEDS: ALPRAZolam 0.5 MG TAB PO PRN (09:19)
--- NOTE | 2020-06-27 10:13 | P.PN ---
Subjective Progress Note Date: 06/27/20 49 yo female patient hospitalized for COVID 19 pneumonia. The patient present ed to the hospital because of worsening shortness of breath. Patient had nonproductive cough and fever and chills and myalgia. The patient is currently on oxygen at 15 L high flow. Initially she was on 6 L and she was brought up to 15 L. The chest x-ray is showing diffuse bilateral pulmonary infiltrates consistent with pneumonia. The CAT scan of the chest also showed diffuse bilateral groundglass pulmonary infiltrates both in the upper and lower lobes and the infiltrates are quite extensive at this point in time. The patient has no pulmonary embolism. As for the blood work, the patient has a d-dimer 1.37, the LDH was 3282 and the CRP level is at 83. The patient was given Decadron 6 m g IV. The patient will be placed on Lovenox. The patient will be admitted to the medical floor. The patient symptoms started approximately 6 days ago and since then the patient gradually On 06/24/2020, the patient is transferred to the intensive care unit. This transplant occurred early this morning. I saw this patient in intensive care unit this morning. Nevertheless, yesterday she was in the emergency. At a time of my arrival, the patient was desaturating and I put her on high flow oxygen at 6 L with an FiO2 of 100%. Overnight, the patient became more tachypneic and hypoxic. Based on that, the patient got transferred to the intensive care unit and the patient was placed on BiPAP which is currently at a pressure of 12/5 cm of water and FiO2 of 100%. She is currently generating a volume of 450 mL and her respiratory rate is quite high in the low 40s. As such, the patient carries a very high minute ventilation. In terms of her Covid 19 pneumonia, started on Decadron 6 mg IV every 24 hours. The patient was also given Tocilizumab yesterday without any major side effects or toxicities. She remains hemodynamically stable. She is producing adequate amount of urine output. She was a bit anxious yesterday and restless and she was given morphine and Xanax which calmed her down considerably. In terms of her blood work, the blood work is still pending. The chest x-ray is also pending for now. She has improved considerably with morphine which took some of her restlessness and agitation away. She remains on Decadron. She remains on Lovenox 40 mg subcu every 24 margret rs. On 06/25/2020, the patient remains on a BiPAP at a pressure of 14/10 with an FiO2 of 100. She obviously decompensated yesterday. She got transferred to the intensive care unit. She was placed in a foam body positioning while in the BiPAP and she was able to tolerate that. Total of 3 hours. This obviously help with her oxygenation. Her current pulse ox is in the mid 80s. She was progres sing and the patient was placed on Decadron and combination with Tocilizumab and the patient is also on anticoagulation with Lovenox. She is slightly more stable compared to yesterday. She is currently in a supine body position. She is on the same BiPAP setting. D-dimer is at 1.28 and the rest of the inflammatory markers show a LDH of 3894 and the CRP of 17.4. The chest x-ray from today is showing diffuse bilateral pulmonary infiltrates consistent with Covid 19 related pneumonia. The chest x-ray findings probably are looking slightly better compared to yesterday. Otherwise, she is receiving IV fluids of normal saline at the rate of 100 mL an hour. She is producing adequate amount of urine output. No fever. She is less anxious while being on Precedex which is currently running at 0.5 mcg/kg per minute. No hemodynamic changes. No bradycardia. No agitation. No restlessness pH is able to communicate fairly well while being on a BiPAP. 06/26/2020, the patient is being seen for a follow-up. She is BiPAP dependent and she remains on a BiPAP at a pressure of 14/10 with an FiO2 of 95%. The incision same sitting exacerbates with some limited improvement in oxygenation and limited And FiO2. Current pulse ox is 94%. She managed to go in a prone body positioning for several hours yesterday and currently she is back supine and she's sleeping on her left side for now. She is quite comfortable at this point in time. She is awake and communicating. She is becoming progressively more weak and debilitated. She is also anxious. Repeat chest x-ray was done today and the findings are essentially stable compared to yesterday.. The patient remains on IV Decadron. She received Tocilizumab and she also received convalescent plasma. She is on Lovenox also for anticoagulation. In terms of her markers, the d-dimer currently is at 8.87 and the LDH level is currently at 3864 and the CRP is at 11.2. She is still on Precedex which is running at 0.7 mcg/kg per minute. Oral intake is minimal as the patient is strictly BiPAP dependent and she desaturates once off the BiPAP. IV fluids are running at the rate of 100 mL an hour of normal saline. Or 2020, the patient is transitioned to a high flow oxygen and currently she is on 60 L with an FiO2 of 90%. She is able to maintain a pulse ox of 95%. Note that she was on BiPAP for 3 days in ago and she was doing very well on the BiPAP and she was doing prone body positioning periodically. This morning, she got transitioned to high flow oxygen. She is doing slightly better. She is less short of breath. Her current pulse ox is 94%. Rest of the hemodynamics are all stable. The patient is still tachypneic and she is unable to complete full sentences. She has short of breath. However, the fact that she is off the BiPAP is a big step for her and she states that her breathing is improved compared to yesterday. The patient's chest x-ray showing diffuse interstitial infiltrates bilaterally left more than right, unchanged compared to yesterday. Her d-dimer is elevated at 12.3. LDH level is at 3149 improved and his CRP level is at 7.4, improved. The patient is on Lovenox 40 mg subcu every 24 hours. The patient is also on Decadron 6 mg IV every 24 hours. She is still on Precedex at a dose of 0.7 mcg/kg per minute. She is also on several practitioners running at 2 mg an hour for blood pressure control. She remains on metoprolol 25 mg by mouth daily. Cozaar was replaced with Zestoretic 20/12.5 one tablet a day. Will be given some limited amount of soft or clear liquid diet today now that she is on high flow oxygen in conjunction with the percent nonrebreather facemask. Objective - Vital Signs Vital signs: Vital Signs Temp 97.8 F 06/27/20 08:00 Pulse 65 06/27/20 09:00 Resp 42 H 06/27/20 09:00 BP 120/80 06/27/20 09:00 Pulse Ox 93 L 06/27/20 09:00 Intake & Output 06/26/20 06/27/20 06/27/20 18:59 06:59 18:59 Intake Total 0368.551 6615.267 300 Output Total 1485 2285 590 Balance 105.083 -656.733 -290 Weight 85.7 kg Intake: IV 1400 1100 300 Sodium Chloride 0.9% 1, 1400 1100 300 000 ml @ 100 mls/hr IV . Q10H [facility] Rx#:[id number] Intake, IV Titration 190.083 128.267 Amount Clevidipine Butyrate 25 28.267 mg In Empty Bag 1 bag @ 1 MG/HR 2 mls/hr IV .Q24H [facility] Rx#:[id number] Dexmedetomidine/0.9% NaCl 190.083 100 (Pmx) 400 mcg In Empty Bag 1 bag @ Titrate IV . Q0M [facility] Rx#:[id number] Oral 400 Output: Urine 1485 2285 590 Other: Voiding Method Indwelling Catheter Indwelling Catheter Indwelling Catheter - Exam The patient is lethargic, and the patient remains a mild degree of respiratory distress even while at a BiPAP at a pressure of 14/10 with an FiO2 of 95%. This morning, the patient was taken off the BiPAP and the patient was switched to high flow oxygen in addition to 100% nonrebreather facemask. She is at a flow of 60 L with an FiO2 of 90%. Head exam was generally normal. There was no scleral icterus or corneal arcus. Mucous membranes were moist. Neck was supple and without jugular venous distension, thyromegaly, or carotid bruits. Carotids were easily palpable bilaterally. There was no adenopathy. Lungs sounds are showing factors in the mid and lower lung linares bilaterally and there is extensive crackling for now , tachypneic Cardiac exam revealed the PMI to be normally situated and sized. The rhythm was regular and no extrasystoles were noted during several minutes of auscultation. The first and second heart sounds were normal and physiologic splitting of the second heart sound was noted. There were no murmurs, rubs, clicks, or gallops. Abdominal exam revealed normal bowel sounds. The abdomen was soft, non-tender, and without masses, organomegaly, or appreciable enlargement of the abdominal aorta. Examination of the extremities revealed easily palpable radial, femoral and pedal pulses. There was no cyanosis, clubbing or edema. Examination of the skin revealed no evidence of significant rashes, suspicious appearing nevi or other concerning lesions. Neurologically the patient is lethargic and she is weak. There is global weakness. No focal neurological deficit. Cranial nerves are intact. - Labs CBC & Chem 7: 06/27/20 05:35 06/27/20 05:35 Labs: Abnormal Lab Results - Last 24 Hours (Table) 06/26/20 06/26/20 06/26/20 Range/Units 11:20 17:27 20:41 D-Dimer (<0.60) mg/L FEU Sodium (137-145) mmol/L Potassium (3.5-5.1) mmol/L Carbon Dioxide (22-30) mmol/L BUN (7-17) mg/dL Glucose (74-99) mg/dL POC Glucose (mg/dL) 172 H 164 H 129 H (75-99) mg/dL AST (14-36) U/L ALT (4-34) U/L Alkaline Phosphatase (38-126) U/L Lactate Dehydrogenase (313-618) U/L Albumin (3.5-5.0) g/dL 06/27/20 06/27/20 06/27/20 Range/Units 05:35 05:35 06:51 D-Dimer 12.37 H (<0.60) mg/L FEU Sodium 136 L (137-145) mmol/L Potassium 3.4 L (3.5-5.1) mmol/L Carbon Dioxide 34 H (22-30) mmol/L BUN 18 H (7-17) mg/dL Glucose 114 H (74-99) mg/dL POC Glucose (mg/dL) 106 H (75-99) mg/dL AST 96 H (14-36) U/L ALT 101 H (4-34) U/L Alkaline Phosphatase 210 H (38-126) U/L Lactate Dehydrogenase 3149 H (313-618) U/L Albumin 3.4 L (3.5-5.0) g/dL Microbiology - Last 24 Hours (Table) 06/22/20 23:10 Blood Culture - Preliminary Blood No Growth after 96 hours 06/22/20 23:15 Blood Culture - Preliminary Blood No Growth after 96 hours Assessment and Plan Plan: 1 acute COVID 19 related pneumonia with secondary respiratory failure. The patient started developing symptoms on 06/17/2020 with chest x-ray showing diffuse but the pulmonary infiltrates and sooner findings were also seen on the CT angiogram. The patient is currently in the intensive care unit on a BiPAP at a pressure of 14/10 with an FiO2 of 95%. She has been aggressively treated with a combination of Decadron, she received convalescence plasma and she was also given Tocilizumab that she remains on Decadron for now. She is also on Lovenox. The patient has a very limited reserve in terms of BiPAP support and the patient is very much dependent to the point where she easily desaturates with movement or even while taken off the BiPAP for some sips of water. After being on BiPAP for around 3 days and doing prone positioning, the patient's more stable and the patient's code switched to high flow oxygen at 15 L with a apparent of 90% in conjunction with 100% on a beta facemask. Chest x-ray remai ns unchanged. Inflammatory markers including LDH is dropping, CRP is dropping, d-dimer remains elevated. 2 acute hypoxic respiratory failure secondary to above 3 elevated inflammatory markers secondary to above, d-dimer is elevated 4 fever and constitutional symptoms secondary to above 5 hypertension 6 previous history of substance abuse Plan Keep the patient on high flow oxygen at 6 L with an FiO2 of 90% in conjunction with a nonrebreather facemask Allow some soft last clear liquid diet the patient has already being given tocilizumab 8 mg/kg IVand convalescent plasma were given Prone positioning and this will be repeated for a total of 3 hours today monitor inflammatory markers Lovenox 40 mg subcu every 12 hours on d-dimer is elevated Decadron 6 mg by mouth due to daily Wean off clevidipine drip titrate The Precedex based on her level of agitation and comfort Polyvitamin's PICC line in place in the RUE Condition is critical and will continue to follow and make further re commendations based on her progress. The patient is critically ill. The patient will be kept in ICU. I had asked for respiratory failure requiring intubation mechanical ventilation. Critical care evaluation that was on a more than 30 minutes. Time with Patient: Greater than 30
[2020-06-27 11:24] LABS: Glucose,Whole Blood 132 mg/dL (75-99)
--- NOTE | 2020-06-27 11:33 | XR ---
EXAMINATION TYPE: XR chest 1V portable DATE OF EXAM: 06/27/2020 Comparison: 06/26/2020 Clinical History: 49 year-old female covid/PNA Findings: Right ribs in the right atrium. Heart normal size. Diffuse groundglass densities persist. No pneumoth orax or pleural effusion. Impression: Diffuse COVID groundglass opacities bilaterally without significant change.
[2020-06-27 14:17] LABS: Band Neutrophils % 1 %; Lymphocytes # (M) 1.38 k/uL (1.0-4.8); Monocytes # (M) 0.34 k/uL (0-1.0); Neutrophils % (M) 79 %; Nucleated Red Blood Cells 0 /100 WBC (0-0); Total Cells Counted 100
--- NOTE | 2020-06-27 15:09 | P.PN ---
Subjective Progress Note Date: 06/27/20 (High anxiety level) Dictation on progress note, Date of service 06/27/[address] Jones. Patient seen and evaluated [id number] and she had an episode of removing her BiPAP with the underlying the situation nursing staff right away but the BiPAP and patient recovered however her oxygen was fluctuating with some clinical improvement with the anxiety level is high, we will increase her Xanax to 1 mg 3 times a day when necessary.. She is sleeping at the time of the exam [id number] and sedated with the Precedex. Head was normocephalic and atraumatic. Currently on oxygen and BiPAP. Gradual improvement on the oxygenation was improved saturation. Neck was supple Chest was was informed of taking a deep press and tachypnea with increase in respiratory rate. Her chest x-ray ground glass with the Covid pneumonia. Heart regular sinus rhythm with elevated blood pressure with failure acute d istress. Abdomen positive bowel sounds Extremities no edema and positive pulses. Neurologically stable Assessment: Covid pneumonia with the struggling for coming out of it and despite all the treatment, Increased anxiety status. PICC line in the right arm. Diabetes mellitus covered with insulin Plan: #1 increased to the Xanax to 1 mg 3 times a day when necessary with the agitation and anxiety. #2 continue current medications with the possible improvement in couple days. #3 currently patient still guarded and serious Objective - Vital Signs Vital signs: Vital Signs Temp 99.1 F 06/27/20 12:00 Pulse 121 H 06/27/20 14:00 Resp 51 H 06/27/20 14:00 BP 120/83 06/27/20 14:00 Pulse Ox 94 L 06/27/20 14:00 Intake & Output 06/26/20 06/27/20 06/27/20 18:59 06:59 18:59 Intake Total 2123.861 7751.267 700 Output Total 1485 2285 1550 Balance 105.083 -656.733 -850 Weight 85.7 kg 85.7 kg Intake: IV 1400 1100 700 Sodium Chloride 0.9% 1, 1400 1100 700 000 ml @ 100 mls/hr IV . Q10H [facility] Rx#:[id number] Intake, IV Titration 190.083 128.267 Amount Clevidipine Butyrate 25 28.267 mg In Empty Bag 1 bag @ 1 MG/HR 2 mls/hr IV .Q24H [facility] Rx#:[id number] Dexmedetomidine/0.9% NaCl 190.083 100 (Pmx) 400 mcg In Empty Bag 1 bag @ Titrate IV . Q0M [facility] Rx#:[id number] Oral 400 Output: Urine 1485 2285 1550 Other: Voiding Method Indwelling Catheter Indwelling Catheter Indwelling Catheter # Bowel Movements 1 - Labs CBC & Chem 7: 06/27/20 05:35 06/27/20 05:35 Labs: Abnormal Lab Results - Last 24 Hours (Table) 06/26/20 06/26/20 06/27/20 Range/Units 17:27 20:41 05:35 D-Dimer 12.37 H (<0.60) mg/L FEU Sodium (137-145) mmol/L Potassium (3.5-5.1) mmol/L Carbon Dioxide (22-30) mmol/L BUN (7-17) mg/dL Glucose (74-99) mg/dL POC Glucose (mg/dL) 164 H 129 H (75-99) mg/dL AST (14-36) U/L ALT (4-34) U/L Alkaline Phosphatase (38-126) U/L Lactate Dehydrogenase (313-618) U/L Albumin (3.5-5.0) g/dL 06/27/20 06/27/20 06/27/20 Range/Units 05:35 06:51 11:22 D-Dimer (<0.60) mg/L FEU Sodium 136 L (137-145) mmol/L Potassium 3.4 L (3.5-5.1) mmol/L Carbon Dioxide 34 H (22-30) mmol/L BUN 18 H (7-17) mg/dL Glucose 114 H (74-99) mg/dL POC Glucose (mg/dL) 106 H 132 H (75-99) mg/dL AST 96 H (14-36) U/L ALT 101 H (4-34) U/L Alkaline Phosphatase 210 H (38-126) U/L Lactate Dehydrogenase 3149 H (313-618) U/L Albumin 3.4 L (3.5-5.0) g/dL Microbiology - Last 24 Hours (Table) 06/22/20 23:10 Blood Culture - Preliminary Blood No Growth after 96 hours 06/22/20 23:15 Blood Culture - Preliminary Blood No Growth after 96 hours
[2020-06-27 16:59] LABS: Glucose,Whole Blood 147 mg/dL (75-99)
[2020-06-27 21:22] LABS: Glucose,Whole Blood 127 mg/dL (75-99)
[2020-06-27] MEDS: ALPRAZolam 1 MG TAB PO PRN (22:45)
[2020-06-28 04:19] LABS: Basophils # (A) 0.1 k/uL (0-0.2); Basophils % (A) 1 %; Eosinophils % (A) 0 %; HCT 39.1 % (34.0-46.0); Lymphocytes # (A) 1.4 k/uL (1.0-4.8); Lymphocytes % (A) 11 %; MCH 26.8 pg (25.0-35.0); MCHC 33.3 g/dL (31.0-37.0); MCV 80.5 fL (80.0-100.0); Mean Platelet Volume 7.2; Monocytes # (A) 0.4 k/uL (0-1.0); Monocytes % (A) 3 %; Neutrophils # (A) 10.2 k/uL (1.3-7.7); Neutrophils % (A) 82 %; Platelet Count 219 k/uL (150-450); RBC 4.85 m/uL (3.80-5.40); RDW 14.4 % (11.5-15.5); WBC 12.5 k/uL (3.8-10.6)
[2020-06-28] MEDS: CLEVIDIPINE BUTYRATE 25 MG in EMPTY BAG 1 BAG IV SCH ×2 (04:58→08:41)
[2020-06-28 05:04] LABS: African American GFR (CKD) >90 (>60 ml/min/1.73 sqM); Anion Gap 6 mmol/L; Blood Urea Nitrogen 16 mg/dL (7-17); C Reactive Protein 0.8 mg/dL (<1.0); Calcium 8.6 mg/dL (8.4-10.2); Carbon Dioxide 33 mmol/L (22-30); Chloride 102 mmol/L (98-107); Glucose 121 mg/dL (74-99); Non-African American GFR(CKD) >90 (>60 ml/min/1.73 sqM); Potassium 3.5 mmol/L (3.5-5.1); Sodium 141 mmol/L (137-145)
[2020-06-28] MEDS: DEXMEDETOMIDINE/0.9% NACL(PMX) 400 MCG in EMPTY BAG 1 BAG IV SCH ×3 (05:18→20:40)
[2020-06-28 05:30] LABS: LDH 2797 U/L (313-618)
[2020-06-28] MEDS: MORPHINE SULFATE 2 MG/ML SYRINGE IVP PRN ×5 (06:02→23:08)
[2020-06-28 06:50] LABS: Glucose,Whole Blood 104 mg/dL (75-99)
[2020-06-28] MEDS: SODIUM CHLORIDE 0.9% 1,000 ML IV SCH (06:55)
[2020-06-28] MEDS: INSULIN ASPART (NovoLOG) 100 UNIT/ML VIAL SQ SCH ×4 (08:52→21:38)
[2020-06-28] MEDS: DEXAMETHASONE SOD PHOSPHATE 10 MG/ML 1 ML VIAL IV SCH ×2 (08:53→20:31)
[2020-06-28] MEDS: POTASSIUM CHLORIDE 20 MEQ in WATER FOR INJECTION 1 100ML.BAG IVPB SCH ×2 (08:59→10:09)
[2020-06-28] MEDS: LISINOPRIL-HCTZ 20-12.5 MG 1 EACH TAB PO SCH (09:00)
[2020-06-28] MEDS: ASCORBIC ACID 500 MG TAB PO SCH (09:00)
[2020-06-28] MEDS: ZINC SULFATE 220 MG CAP PO SCH (09:00)
[2020-06-28] MEDS: FAMOTIDINE 20 MG TAB PO SCH ×2 (09:00→20:27)
[2020-06-28] MEDS: amLODIPine 5 MG TAB PO SCH (09:00)
[2020-06-28] MEDS: METOPROLOL SUCCINATE (ER) 25 MG TAB.ER.24H PO SCH (09:00)
[2020-06-28] MEDS: CHOLECALCIFEROL 25 MCG (1000 IU) TABLET PO SCH (09:00)
[2020-06-28] MEDS: ENOXAPARIN 40 MG/0.4 ML SYRINGE SQ SCH ×2 (09:00→20:33)
[2020-06-28] MEDS: ALPRAZolam 1 MG TAB PO PRN (09:04)
--- NOTE | 2020-06-28 09:25 | P.PN ---
Subjective Progress Note Date: 06/28/20 49 yo female patient hospitalized for COVID 19 pneumonia. The patient present ed to the hospital because of worsening shortness of breath. Patient had nonproductive cough and fever and chills and myalgia. The patient is currently on oxygen at 15 L high flow. Initially she was on 6 L and she was brought up to 15 L. The chest x-ray is showing diffuse bilateral pulmonary infiltrates consistent with pneumonia. The CAT scan of the chest also showed diffuse bilateral groundglass pulmonary infiltrates both in the upper and lower lobes and the infiltrates are quite extensive at this point in time. The patient has no pulmonary embolism. As for the blood work, the patient has a d-dimer 1.37, the LDH was 3282 and the CRP level is at 83. The patient was given Decadron 6 m g IV. The patient will be placed on Lovenox. The patient will be admitted to the medical floor. The patient symptoms started approximately 6 days ago and since then the patient gradually On 06/24/2020, the patient is transferred to the intensive care unit. This transplant occurred early this morning. I saw this patient in intensive care unit this morning. Nevertheless, yesterday she was in the emergency. At a time of my arrival, the patient was desaturating and I put her on high flow oxygen at 6 L with an FiO2 of 100%. Overnight, the patient became more tachypneic and hypoxic. Based on that, the patient got transferred to the intensive care unit and the patient was placed on BiPAP which is currently at a pressure of 12/5 cm of water and FiO2 of 100%. She is currently generating a volume of 450 mL and her respiratory rate is quite high in the low 40s. As such, the patient carries a very high minute ventilation. In terms of her Covid 19 pneumonia, started on Decadron 6 mg IV every 24 hours. The patient was also given Tocilizumab yesterday without any major side effects or toxicities. She remains hemodynamically stable. She is producing adequate amount of urine output. She was a bit anxious yesterday and restless and she was given morphine and Xanax which calmed her down considerably. In terms of her blood work, the blood work is still pending. The chest x-ray is also pending for now. She has improved considerably with morphine which took some of her restlessness and agitation away. She remains on Decadron. She remains on Lovenox 40 mg subcu every 24 margret rs. On 06/25/2020, the patient remains on a BiPAP at a pressure of 14/10 with an FiO2 of 100. She obviously decompensated yesterday. She got transferred to the intensive care unit. She was placed in a foam body positioning while in the BiPAP and she was able to tolerate that. Total of 3 hours. This obviously help with her oxygenation. Her current pulse ox is in the mid 80s. She was progres sing and the patient was placed on Decadron and combination with Tocilizumab and the patient is also on anticoagulation with Lovenox. She is slightly more stable compared to yesterday. She is currently in a supine body position. She is on the same BiPAP setting. D-dimer is at 1.28 and the rest of the inflammatory markers show a LDH of 3894 and the CRP of 17.4. The chest x-ray from today is showing diffuse bilateral pulmonary infiltrates consistent with Covid 19 related pneumonia. The chest x-ray findings probably are looking slightly better compared to yesterday. Otherwise, she is receiving IV fluids of normal saline at the rate of 100 mL an hour. She is producing adequate amount of urine output. No fever. She is less anxious while being on Precedex which is currently running at 0.5 mcg/kg per minute. No hemodynamic changes. No bradycardia. No agitation. No restlessness pH is able to communicate fairly well while being on a BiPAP. 06/26/2020, the patient is being seen for a follow-up. She is BiPAP dependent and she remains on a BiPAP at a pressure of 14/10 with an FiO2 of 95%. The incision same sitting exacerbates with some limited improvement in oxygenation and limited And FiO2. Current pulse ox is 94%. She managed to go in a prone body positioning for several hours yesterday and currently she is back supine and she's sleeping on her left side for now. She is quite comfortable at this point in time. She is awake and communicating. She is becoming progressively more weak and debilitated. She is also anxious. Repeat chest x-ray was done today and the findings are essentially stable compared to yesterday.. The patient remains on IV Decadron. She received Tocilizumab and she also received convalescent plasma. She is on Lovenox also for anticoagulation. In terms of her markers, the d-dimer currently is at 8.87 and the LDH level is currently at 3864 and the CRP is at 11.2. She is still on Precedex which is running at 0.7 mcg/kg per minute. Oral intake is minimal as the patient is strictly BiPAP dependent and she desaturates once off the BiPAP. IV fluids are running at the rate of 100 mL an hour of normal saline. Or 2020, the patient is transitioned to a high flow oxygen and currently she is on 60 L with an FiO2 of 90%. She is able to maintain a pulse ox of 95%. Note that she was on BiPAP for 3 days in ago and she was doing very well on the BiPAP and she was doing prone body positioning periodically. This morning, she got transitioned to high flow oxygen. She is doing slightly better. She is less short of breath. Her current pulse ox is 94%. Rest of the hemodynamics are all stable. The patient is still tachypneic and she is unable to complete full sentences. She has short of breath. However, the fact that she is off the BiPAP is a big step for her and she states that her breathing is improved compared to yesterday. The patient's chest x-ray showing diffuse interstitial infiltrates bilaterally left more than right, unchanged compared to yesterday. Her d-dimer is elevated at 12.3. LDH level is at 3149 improved and his CRP level is at 7.4, improved. The patient is on Lovenox 40 mg subcu every 24 hours. The patient is also on Decadron 6 mg IV every 24 hours. She is still on Precedex at a dose of 0.7 mcg/kg per minute. She is also on several practitioners running at 2 mg an hour for blood pressure control. She remains on metoprolol 25 mg by mouth daily. Cozaar was replaced with Zestoretic 20/12.5 one tablet a day. Will be given some limited amount of soft or clear liquid diet today now that she is on high flow oxygen in conjunction with the percent nonrebreather facemask. 06/28/2020, the patient is back on BiPAP. She was transitioned to high flow oxygen yesterday at 60 L with an FiO2 of 90%. She was given for a total of 6 hours yesterday and following that she was switched back on a BiPAP and the current pressures are 14/10 with an FiO2 of other percent. She is quite comfortable currently. Earlier this morning, she was getting worked up and she was tachypneic and she was desaturating. She was given morphine which helped her quite a bit. She is on Precedex which is running at 0.7 mcg/kg per minute. The patient is d-dimer is up to 4.3, the LDH level is down trending is down to 2797 with a CRP of 0.8. The chest x-ray is showing diffuse bilateral groundglass pulmonary infiltrates, unchanged compared to yesterday. He is hemodynamically stable. In terms of blood pressure control, she is on Catapres at 4 mg an hour. She is also taking oral antihypertensive medication and she is currently on Norvasc 5 mg by mouth daily, lisinopril hydrochlorothiazide 20/12.5 one tab today and she is also on metoprolol XL 25 mg by mouth daily. We'll make the necessary adjustments on the blood pressure medications to wean off the Celebrex drip. Her oral intake is minimal. She is quite weak. She is alert and awake and she is communicating. She remains highly anxious. Objective - Vital Signs Vital signs: Vital Signs Temp 97.4 F L 06/28/20 00:00 Pulse 66 06/28/20 06:00 Resp 36 H 06/28/20 06:00 BP 139/91 06/28/20 06:00 Pulse Ox 89 L 06/28/20 06:00 Intake & Output 06/27/20 06/28/20 06/28/20 18:59 06:59 18:59 Intake Total 1350 2210.842 27.467 Output Total 1950 2435 Balance -600 -224.158 27.467 Weight 85.7 kg 83.9 kg Intake: IV 1200 1200 Sodium Chloride 0.9% 1, 1200 1200 000 ml @ 100 mls/hr IV . Q10H [facility] Rx#:[id number] Intake, IV Titration 150 210.842 27.467 Amount Clevidipine Butyrate 25 50 32.866 27.467 mg In Empty Bag 1 bag @ 1 MG/HR 2 mls/hr IV .Q24H [facility] Rx#:[id number] Dexmedetomidine/0.9% NaCl 100 177.976 (Pmx) 400 mcg In Empty Bag 1 bag @ Titrate IV . Q0M [facility] Rx#:[id number] Oral 800 Output: Urine 1950 2435 Other: Voiding Method Indwelling Catheter Indwelling Catheter # Bowel Movements 1 - Exam The patient is lethargic, and the patient remains a mild degree of respiratory distress even while at a BiPAP at a pressure of 14/10 with an FiO2 of 100%. Head exam was generally normal. There was no scleral icterus or corneal arcus. Mucous membranes were moist. Neck was supple and without jugular venous distension, thyromegaly, or carotid bruits. Carotids were easily palpable bilaterally. There was no adenopathy. Lungs sounds are showing factors in the mid and lower lung linares bilaterally and there is extensive crackling for now , tachypneic Cardiac exam revealed the PMI to be normally situated and sized. The rhythm was regular and no extrasystoles were noted during several minutes of auscultation. The first and second heart sounds were normal and physiologic splitting of the second heart sound was noted. There were no murmurs, rubs, clicks, or gallops. Abdominal exam revealed normal bowel sounds. The abdomen was soft, non-tender, and without masses, organomegaly, or appreciable enlargement of the abdominal aorta. Examination of the extremities revealed easily palpable radial, femoral and pedal pulses. There was no cyanosis, clubbing or edema. Examination of the skin revealed no evidence of significant rashes, suspicious appearing nevi or other concerning lesions. Neurologically the patient is lethargic and she is weak. There is global weakness. No focal neurological deficit. Cranial nerves are intact. - Labs CBC & Chem 7: 06/28/20 04:00 06/28/20 04:00 Labs: Abnormal Lab Results - Last 24 Hours (Table) 06/27/20 06/27/20 06/27/20 Range/Units 11:22 16:57 21:20 WBC (3.8-10.6) k/uL Neutrophils # (1.3-7.7) k/uL D-Dimer (<0.60) mg/L FEU Carbon Dioxide (22-30) mmol/L Glucose (74-99) mg/dL POC Glucose (mg/dL) 132 H 147 H 127 H (75-99) mg/dL Lactate Dehydrogenase (313-618) U/L 06/28/20 06/28/20 06/28/20 Range/Units 04:00 04:00 04:00 WBC 12.5 H (3.8-10.6) k/uL Neutrophils # 10.2 H (1.3-7.7) k/uL D-Dimer 12.36 H (<0.60) mg/L FEU Carbon Dioxide 33 H (22-30) mmol/L Glucose 121 H (74-99) mg/dL POC Glucose (mg/dL) (75-99) mg/dL Lactate Dehydrogenase 2797 H (313-618) U/L 06/28/20 Range/Units 06:49 WBC (3.8-10.6) k/uL Neutrophils # (1.3-7.7) k/uL D-Dimer (<0.60) mg/L FEU Carbon Dioxide (22-30) mmol/L Glucose (74-99) mg/dL POC Glucose (mg/dL) 104 H (75-99) mg/dL Lactate Dehydrogenase (313-618) U/L Microbiology - Last 24 Hours (Table) 06/22/20 23:15 Blood Culture - Preliminary Blood No Growth after 120 hours 06/22/20 23:10 Blood Culture - Preliminary Blood No Growth after 120 hours Assessment and Plan Plan: 1 acute COVID 19 related pneumonia with secondary respiratory failure. The patient started developing symptoms on 06/17/2020 with chest x-ray showing diffuse but the pulmonary infiltrates and sooner findings were also seen on the CT angiogram. The patient is currently in the intensive care unit on a BiPAP at a pressure of 14/10 with an FiO2 of 100%. She remains on Precedex. She remains on morphine to be given a stat basis to control her breathlessness and agitation and anxiety. Inflammatory markers including LDH is dropping, CRP is dropping, d-dimer remains elevated. 2 acute hypoxic respiratory failure secondary to above 3 elevated inflammatory markers secondary to above, d-dimer is elevated 4 fever and constitutional symptoms secondary to above 5 hypertension 6 previous history of substance abuse Plan Keep the patient on BiPAP for now at a pressure of 14/10 with an FiO2 of 100% Monitor inflammatory markers Precedex for agitation and comfort in combination with morphine Allow some soft last clear liquid diet the patient has already being given tocilizumab 8 mg/kg IVand convalescent plasma were given Prone positioning and this will be repeated for a total of 3 hours today Lovenox 40 mg subcu every 12 Decadron 6 mg IV every 12 hours Wean off clevidipine drip Increase the Norvasc to 10 mg by mouth daily Changes the metoprolol to 25 mg by mouth twice a day PICC line in place in the RUE Condition is critical and will continue to follow and make further recommendations based on her progress. The patient is critically ill. The patient will be kept in ICU. I had asked for respiratory failure requiring intubation mechanical ventilation. Critical care evaluation that was on a more than 30 minutes. Time with Patient: Greater than 30
[2020-06-28] MEDS ORDERED: amLODIPine 5 MG TAB PO STA (09:51)
[2020-06-28] MEDS: POTASSIUM CHLORIDE ER 20 MEQ TAB.ER PO SCH ×2 (10:08→12:11)
[2020-06-28 12:04] LABS: Glucose,Whole Blood 172 mg/dL (75-99)
--- NOTE | 2020-06-28 15:46 | P.PN ---
Subjective Progress Note Date: 06/28/20 (Covid19 pneumonia) Patient seen today date of service 06/28/[address] Wood. Patient seen [id number] Patient sedated, appears to be comfortable on high flow oxygen off the BiPAP. She is breathing with tachypnea respiratory rate 33 permanent, blood pressure 130/87, pulse rate is 70 bpm. Mean blood pressure 101. Oxygen saturation fluctuating between 91 and 88 on the high flow with the slow rate 60 and FiO2 of 95%. Heart is regular sinus and good radial pulses. On exam she is sedated, on the high flow oxygen. Neck was supple no JVD. Chest progressive improvement with the breathing. Heart compensated regular sinus. Abdomen soft positive bowel sounds Extremities: Pulses intact 2+ upper and lower extremities right arm PICC line was to report. She had a Lizarraga catheter. Assessment: Patient appears today with some improvement Covid pneumonia Heart rate and hypertension is controlled. Laboratories: WBC today 12.5 with the start the response before that was on the normal side. Hemoglobin stable D-dimer marker 12.36, COMPLAINTS COORDINATOR 0.8 and a first reading on 06/22/2020 was 83.2 with the progressive improvement LDH 2797 with the down trend still elevated Blood glucose monitored and controlled with the insulin. Plan: Patient in ICU and Dr. Barajas and critical care group has been following the patient and adjusting her oxygen. Hopefully patient continue to improve. Objective - Vital Signs Vital signs: Vital Signs Temp 98.2 F 06/28/20 12:00 Pulse 70 06/28/20 15:00 Resp 33 H 06/28/20 15:00 BP 130/87 06/28/20 15:00 Pulse Ox 88 L 06/28/20 15:00 Intake & Output 06/27/20 06/28/20 06/28/20 18:59 06:59 18:59 Intake Total 1350 2210.842 1204.689 Output Total 1950 2435 970 Balance -600 -224.158 234.689 Weight 85.7 kg 83.9 kg Intake: IV 1200 1200 900 Sodium Chloride 0.9% 1, 1200 1200 900 000 ml @ 100 mls/hr IV . Q10H [facility] Rx#:[id number] Intake, IV Titration 150 210.842 184.689 Amount Clevidipine Butyrate 25 50 32.866 46.934 mg In Empty Bag 1 bag @ 1 MG/HR 2 mls/hr IV .Q24H [facility] Rx#:[id number] Dexmedetomidine/0.9% NaCl 100 177.976 137.755 (Pmx) 400 mcg In Empty Bag 1 bag @ Titrate IV . Q0M [facility] Rx#:[id number] Oral 800 120 Output: Urine 1950 2435 970 Other: Voiding Method Indwelling Catheter Indwelling Catheter Indwelling Catheter # Bowel Movements 1 - Labs CBC & Chem 7: 06/28/20 04:00 06/28/20 04:00 Labs: Abnormal Lab Results - Last 24 Hours (Table) 06/27/20 06/27/20 06/28/20 Range/Units 16:57 21:20 04:00 WBC (3.8-10.6) k/uL Neutrophils # (1.3-7.7) k/uL D-Dimer 12.36 H (<0.60) mg/L FEU Carbon Dioxide (22-30) mmol/L Glucose (74-99) mg/dL POC Glucose (mg/dL) 147 H 127 H (75-99) mg/dL Lactate Dehydrogenase (313-618) U/L 06/28/20 06/28/20 06/28/20 Range/Units 04:00 04:00 06:49 WBC 12.5 H (3.8-10.6) k/uL Neutrophils # 10.2 H (1.3-7.7) k/uL D-Dimer (<0.60) mg/L FEU Carbon Dioxide 33 H (22-30) mmol/L Glucose 121 H (74-99) mg/dL POC Glucose (mg/dL) 104 H (75-99) mg/dL Lactate Dehydrogenase 2797 H (313-618) U/L 06/28/20 Range/Units 12:03 WBC (3.8-10.6) k/uL Neutrophils # (1.3-7.7) k/uL D-Dimer (<0.60) mg/L FEU Carbon Dioxide (22-30) mmol/L Glucose (74-99) mg/dL POC Glucose (mg/dL) 172 H (75-99) mg/dL Lactate Dehydrogenase (313-618) U/L Microbiology - Last 24 Hours (Table) 06/22/20 23:15 Blood Culture - Preliminary Blood No Growth after 120 hours 06/22/20 23:10 Blood Culture - Preliminary Blood No Growth after 120 hours
[2020-06-28 17:42] LABS: Glucose,Whole Blood 131 mg/dL (75-99)
[2020-06-28 20:42] LABS: Glucose,Whole Blood 198 mg/dL (75-99)
[2020-06-29] MEDS: SODIUM CHLORIDE 0.9% 1,000 ML IV SCH ×3 (02:44→15:53)
[2020-06-29] MEDS: MORPHINE SULFATE 2 MG/ML SYRINGE IVP PRN ×6 (02:45→22:17)
[2020-06-29] MEDS: DEXMEDETOMIDINE/0.9% NACL(PMX) 400 MCG in EMPTY BAG 1 BAG IV SCH ×3 (04:20→20:48)
[2020-06-29 05:07] LABS: Basophils % (A) 0 %; Eosinophils % (A) 0 %; HCT 37.3 % (34.0-46.0); HGB 12.1 gm/dL (11.4-16.0); Lymphocytes # (A) 1.3 k/uL (1.0-4.8); Lymphocytes % (A) 7 %; MCH 26.2 pg (25.0-35.0); MCHC 32.6 g/dL (31.0-37.0); MCV 80.5 fL (80.0-100.0); Mean Platelet Volume 7.7; Monocytes # (A) 0.3 k/uL (0-1.0); Monocytes % (A) 2 %; Neutrophils # (A) 15.1 k/uL (1.3-7.7); Neutrophils % (A) 89 %; Platelet Count 214 k/uL (150-450); RBC 4.63 m/uL (3.80-5.40); RDW 14.6 % (11.5-15.5)
[2020-06-29 05:21] LABS: African American GFR (CKD) >90 (>60 ml/min/1.73 sqM); Anion Gap 5 mmol/L; Blood Urea Nitrogen 19 mg/dL (7-17); C Reactive Protein 0.7 mg/dL (<1.0); Calcium 8.7 mg/dL (8.4-10.2); Carbon Dioxide 32 mmol/L (22-30); Chloride 100 mmol/L (98-107); Glucose 139 mg/dL (74-99); Non-African American GFR(CKD) >90 (>60 ml/min/1.73 sqM); Potassium 3.8 mmol/L (3.5-5.1); Sodium 137 mmol/L (137-145)
[2020-06-29 05:53] LABS: LDH 2602 U/L (313-618)
[2020-06-29 06:44] LABS: Glucose,Whole Blood 126 mg/dL (75-99)
[2020-06-29] MEDS: INSULIN ASPART (NovoLOG) 100 UNIT/ML VIAL SQ SCH ×4 (07:22→21:09)
[2020-06-29] MEDS: CHOLECALCIFEROL 25 MCG (1000 IU) TABLET PO SCH (08:29)
[2020-06-29] MEDS: DEXAMETHASONE SOD PHOSPHATE 10 MG/ML 1 ML VIAL IV SCH ×2 (08:29→22:16)
[2020-06-29] MEDS: amLODIPine 10 MG TAB PO SCH (08:29)
[2020-06-29] MEDS: FAMOTIDINE 20 MG TAB PO SCH ×2 (08:30→22:15)
[2020-06-29] MEDS: ENOXAPARIN 40 MG/0.4 ML SYRINGE SQ SCH ×2 (08:30→22:15)
[2020-06-29] MEDS: METOPROLOL SUCCINATE (ER) 25 MG TAB.ER.24H PO SCH (08:39)
[2020-06-29] MEDS: LISINOPRIL-HCTZ 20-12.5 MG 1 EACH TAB PO SCH (08:39)
[2020-06-29] MEDS: ZINC SULFATE 220 MG CAP PO SCH (08:39)
[2020-06-29] MEDS: ASCORBIC ACID 500 MG TAB PO SCH (08:40)
[2020-06-29] MEDS: POTASSIUM CHLORIDE 10 MEQ in WATER FOR INJECTION 1 100ML.BAG IVPB SCH ×2 (08:40→11:08)
--- NOTE | 2020-06-29 09:29 | P.PN ---
Subjective Progress Note Date: 06/29/20 49 yo female patient hospitalized for COVID 19 pneumonia. The patient presented to the hospital because of worsening shortness of breath. Patient had nonproductive cough and fever and chills and myalgia. The patient is currently on oxygen at 15 L high flow. Initially she was on 6 L and she was brought up to 15 L. The chest x-ray is showing diffuse bilateral pulmonary infiltrates consistent with pneumonia. The CAT scan of the chest also showed diffuse bilateral groundglass pulmonary infiltrates both in the upper and lower lobes and the infiltrates are quite extensive at this point in time. The patient has no pulmonary embolism. As for the blood work, the patient has a d-dimer 1.37, the LDH was 3282 and the CRP level is at 83. The patient was given Decadron 6 mg IV. The patient will be placed on Lovenox. The patient will be admitted to the medical floor. The patient symptoms started approximately 6 days ago and since then the patient gradually On 06/24/2020, the patient is transferred to the intensive care unit. This transplant occurred early this morning. I saw this patient in intensive care unit this morning. Nevertheless, yesterday she was in the emergency. At a time of my arrival, the patient was desaturating and I put her on high flow oxygen at 6 L with an FiO2 of 100%. Overnight, the patient became more tachypneic and hypoxic. Based on that, the patient got transferred to the intensive care unit and the patient was placed on BiPAP which is currently at a pressure of 12/5 cm of water and FiO2 of 100%. She is currently generating a volume of 450 mL and her respiratory rate is quite high in the low 40s. As such, the patient carries a very high minute ventilation. In terms of her Covid 19 pneumonia, started on Decadron 6 mg IV every 24 hours. The patient was also given Tocilizumab yesterday without any major side effects or toxicities. She remains h emodynamically stable. She is producing adequate amount of urine output. She was a bit anxious yesterday and restless and she was given morphine and Xanax which calmed her down considerably. In terms of her blood work, the blood work is still pending. The chest x-ray is also pending for now. She has improved considerably with morphine which took some of her restlessness and agitation away. She remains on Decadron. She remains on Lovenox 40 mg subcu every 24 hours. On 06/25/2020, the patient remains on a BiPAP at a pressure of 14/10 with an FiO2 of 100. She obviously decompensated yesterday. She got transferred to the intensive care unit. She was placed in a foam body positioning while in the BiPAP and she was able to tolerate that. Total of 3 hours. This obviously help with her oxygenation. Her current pulse ox is in the mid 80s. She was progressing and the patient was placed on Decadron and combination with Tocilizumab and the patient is also on anticoagulation with Lovenox. She is slightly more stable compared to yesterday. She is currently in a supine body position. She is on the same BiPAP setting. D-dimer is at 1.28 and the rest of the inflammatory markers show a LDH of 3894 and the CRP of 17.4. The chest x- ray from today is showing diffuse bilateral pulmonary infiltrates consistent with Covid 19 related pneumonia. The chest x-ray findings probably are looking slightly better compared to yesterday. Otherwise, she is receiving IV fluids of normal saline at the rate of 100 mL an hour. She is producing adequate amount of urine output. No fever. She is less anxious while being on Precedex which is currently running at 0.5 mcg/kg per minute. No hemodynamic changes. No bradycardia. No agitation. No restlessness pH is able to communicate fairly well while being on a BiPAP. 06/26/2020, the patient is being seen for a follow-up. She is BiPAP dependent and she remains on a BiPAP at a pressure of 14/10 with an FiO2 of 95%. The incision same sitting exacerbates with some limited improvement in oxygenation and limited And FiO2. Current pulse ox is 94%. She managed to go in a prone body positioning for several hours yesterday and currently she is back supine and she's sleeping on her left side for now. She is quite comfortable at this point in time. She is awake and communicating. She is becoming progressively more weak and debilitated. She is also anxious. Repeat chest x-ray was done today and the findings are essentially stable compared to yesterday.. The patient remains on IV Decadron. She received Tocilizumab and she also received convalescent plasma. She is on Lovenox also for anticoagulation. In terms of her markers, the d-dimer currently is at 8.87 and the LDH level is currently at 3864 and the CRP is at 11.2. She is still on Precedex which is running at 0.7 mcg/kg per minute. Oral intake is minimal as the patient is strictly BiPAP dependent and she desaturates once off the BiPAP. IV fluids are running at the rate of 100 mL an hour of normal saline. Or 2020, the patient is transitioned to a high flow oxygen and currently she is on 60 L with an FiO2 of 90%. She is able to maintain a pulse ox of 95%. Note that she was on BiPAP for 3 days in ago and she was doing very well on the BiPAP and she was doing prone body positioning periodically. This morning, she got transitioned to high flow oxygen. She is doing slightly better. She is less short of breath. Her current pulse ox is 94%. Rest of the hemodynamics are all stable. The patient is still tachypneic and she is unable to complete full sentences. She has short of breath. However, the fact that she is off the BiPAP is a big step for her and she states that her breathing is improved compared to yesterday. The patient's chest x-ray showing diffuse interstitial infiltrates bilaterally left more than right, unchanged compared to yesterday. Her d-dimer is elevated at 12.3. LDH level is at 3149 improved and his CRP level is at 7.4, improved. The patient is on Lovenox 40 mg subcu every 24 hours. The patient is also on Decadron 6 mg IV every 24 hours. She is still on Precedex at a dose of 0.7 mcg/kg per minute. She is also on several practitioners running at 2 mg an hour for blood pressure control. She remains on metoprolol 25 mg by mouth daily. Cozaar was replaced with Zestoretic 20/12.5 one tablet a day. Will be given some limited amount of soft or clear liquid diet today now that she is on high flow oxygen in conjunction with the percent nonrebreather facemask. 06/28/2020, the patient is back on BiPAP. She was transitioned to high flow oxygen yesterday at 60 L with an FiO2 of 90%. She was given for a total of 6 hours yesterday and following that she was switched back on a BiPAP and the current pressures are 14/10 with an FiO2 of other percent. She is quite comfortable currently. Earlier this morning, she was getting worked up and she was tachypneic and she was desaturating. She was given morphine which helped her quite a bit. She is on Precedex which is running at 0.7 mcg/kg per minute. The patient is d-dimer is up to 4.3, the LDH level is down trending is down to 2797 with a CRP of 0.8. The chest x-ray is showing diffuse bilateral groundglass pulmonary infiltrates, unchanged compared to yesterday. He is hemodynamically stable. In terms of blood pressure control, she is on Catapres at 4 mg an hour. She is also taking oral antihypertensive medication and she is currently on Norvasc 5 mg by mouth daily, lisinopril hydrochlorothiazide 20/12.5 one tab today and she is also on metoprolol XL 25 mg by mouth daily. We'll make the necessary adjustments on the blood pressure medications to wean off the Celebrex drip. Her oral intake is minimal. She is quite weak. She is alert and awake and she is communicating. She remains highly anxious. 06/29/2020 patient seen in follow-up in the intensive care unit, overnight patient was maintained on BiPAP, this morning he is on Airvo at 60 L/m and FiO2 of 100%, her pulse ox is 87-92%, patient seems comfortable, no acute distress was noted, she was able to eat half of her breakfast tray, her BiPAP settings were 14/10 with FiO2 of 100%, her inflammatory markers are downtrending on today's labs, LDH his 2602, CRP is 0.7, and a d-dimer still elevated but is showing a trend down, to 11.4. No new chest x-ray from today, yesterday chest x-ray showed stable findings with diffuse "groundglass opacities bilaterally without significant change, overall clinically she seems to be improving, and he is tolerating trials off the BiPAP support and on high flow oxygen in addition to nonrebreather mask, no complaints of chest discomfort, her cough has subsided, she is able to take deeper breaths, lung sounds reveal bibasilar [place], she is awake and alert, no altered mentation, she is moving all 4 extremities, optimistic about her recovery Objective - Vital Signs Vital signs: Vital Signs Temp 98 F 06/29/20 08:00 Pulse 68 06/29/20 09:00 Resp 27 H 06/29/20 09:00 BP 165/100 06/29/20 09:00 Pulse Ox 89 L 06/29/20 09:00 Intake & Output 06/28/20 06/29/20 06/29/20 18:59 06:59 18:59 Intake Total 8242.062 8394.978 300 Output Total 1295 1475 225 Balance 589.441 263.978 75 Weight 85 kg Intake: IV 1200 1200 300 Sodium Chloride 0.9% 1, 1200 1200 300 000 ml @ 100 mls/hr IV . Q10H JAILYN Rx#:[id number] Intake, IV Titration 204.441 138.978 Amount Clevidipine Butyrate 25 46.934 mg In Empty Bag 1 bag @ 1 MG/HR 2 mls/hr IV .Q24H JAILYN Rx#:[id number] Dexmedetomidine/0.9% NaCl 157.507 138.978 (Pmx) 400 mcg In Empty Bag 1 bag @ Titrate IV . Q0M JAILYN Rx#:[id number] Oral 480 400 Output: Urine 1295 1475 225 Other: Voiding Method Indwelling Catheter Indwelling Catheter - Exam The patient is lethargic, and the patient remains a mild degree of respiratory distress, somewhat improved from yesterday's exam, patient's currently on Airvo at 60 L and FiO2 of 100%, her pulse ox is between 87-92%, tolerating it fairly well, off BiPAP support, with pressures of 14/10 and FiO2 100% for breakfast Head exam was generally normal. There was no scleral icterus or corneal arcus. Mucous membranes were moist. Neck was supple and without jugular venous distension, thyromegaly, or carotid bruits. Carotids were easily palpable bilaterally. There was no adenopathy. Lungs sounds are showing factors in the mid and lower lung linares bilaterally and there is extensive crackling for now , tachypneic Cardiac exam revealed the PMI to be normally situated and sized. The rhythm was regular and no extrasystoles were noted during several minutes of auscultation. The first and second heart sounds were normal and physiologic splitting of the second heart sound was noted. There were no murmurs, rubs, clicks, or gallops. Abdominal exam revealed normal bowel sounds. The abdomen was soft, non-tender, and without masses, organomegaly, or appreciable enlargement of the abdominal aorta. Examination of the extremities revealed easily palpable radial, femoral and pedal pulses. There was no cyanosis, clubbing or edema. Examination of the skin revealed no evidence of significant rashes, suspicious appearing nevi or other concerning lesions. Neurologically the patient is lethargic and she is weak. There is global weakness. No focal neurological deficit. Cranial nerves are intact. - Labs CBC & Chem 7: 06/29/20 04:23 06/29/20 04:23 Labs: Abnormal Lab Results - Last 24 Hours (Table) 06/28/20 06/28/20 06/28/20 Range/Units 12:03 17:41 20:40 WBC (3.8-10.6) k/uL Neutrophils # (1.3-7.7) k/uL D-Dimer (<0.60) mg/L FEU Carbon Dioxide (22-30) mmol/L BUN (7-17) mg/dL Glucose (74-99) mg/dL POC Glucose (mg/dL) 172 H 131 H 198 H (75-99) mg/dL Lactate Dehydrogenase (313-618) U/L 06/29/20 06/29/20 06/29/20 Range/Units 04:23 04:23 04:23 WBC 17.0 H (3.8-10.6) k/uL Neutrophils # 15.1 H (1.3-7.7) k/uL D-Dimer 11.40 H (<0.60) mg/L FEU Carbon Dioxide 32 H (22-30) mmol/L BUN 19 H (7-17) mg/dL Glucose 139 H (74-99) mg/dL POC Glucose (mg/dL) (75-99) mg/dL Lactate Dehydrogenase 2602 H (313-618) U/L 06/29/20 Range/Units 06:42 WBC (3.8-10.6) k/uL Neutrophils # (1.3-7.7) k/uL D-Dimer (<0.60) mg/L FEU Carbon Dioxide (22-30) mmol/L BUN (7-17) mg/dL Glucose (74-99) mg/dL POC Glucose (mg/dL) 126 H (75-99) mg/dL Lactate Dehydrogenase (313-618) U/L Microbiology - Last 24 Hours (Table) 06/22/20 23:10 Blood Culture - Final Blood No Growth after 144 hours 06/22/20 23:15 Blood Culture - Final Blood No Growth after 144 hours Assessment and Plan Plan: Assessment: 1 acute COVID 19 related pneumonia with secondary respiratory failure. The patient started developing symptoms on 06/17/2020 with chest x-ray showing diffuse but the pulmonary infiltrates and sooner findings were also seen on the CT angiogram. The patient is currently in the intensive care unit on a BiPAP at a pressure of 14/10 with an FiO2 of 100%. She remains on Precedex. She remains on morphine to be given a stat basis to control her breathlessness and agitation and anxiety. Inflammatory markers including LDH is dropping, CRP is dropping, d-dimer remains elevated. Patient is starting to tolerate trials off the BiPAP support on Airvo at 60 L and 90% and 100% nonrebreather mask, and patient has been able to come off for meals 2 acute hypoxic respiratory failure secondary to above 3 elevated inflammatory markers secondary to above, d-dimer is elevated 4 fever and constitutional symptoms secondary to above 5 hypertension 6 previous history of substance abuse plan: Current medical treatment, continue steroids in the form of Decadron 6 mg twice daily, continue dexmedetomidine, Lovenox at 40 mg twice daily, continue monitoring daily inflammatory markers and d-dimer, follow-up chest x-ray tomorrow, alternating between BiPAP support and Airvo with a nonrebreather mask, patient is tolerating oral intake, blood pressure control is improved. Continue to closely monitor the patient in the intensive care unit I performed a history & physical examination of the patient and discussed their management with my nurse practitioner, Keily Calhoun. I reviewed the nurse practitioner's note and agree with the documented findings and plan of care. Lung sounds are positive for bibasilar crackles. The findings and the impression was discussed with the patient. I attest to the documentation by the nurse practitioner. Time with Patient: Greater than 30
[2020-06-29] MEDS: guaiFENesin-Coden 100-10MG/5ML 10 ML CUP PO PRN ×2 (10:46→22:15)
[2020-06-29 11:57] LABS: Glucose,Whole Blood 173 mg/dL (75-99)
[2020-06-29] MEDS: ACETAMINOPHEN TAB 325 MG TAB PO PRN (13:41)
--- NOTE | 2020-06-29 15:17 | P.PN ---
Subjective Progress Note Date: 06/29/20 (Acute Covid pneumonia, acute respiratory failure hypoxemic) Dictation progress note in ICU date of service 06/29/[address] Wood. Patient seen and evaluated in room 267 that 1 ICU [id number]. Patient currently awake alert and she is requesting to go home, I did advise her that she still ill and sick and should be continue the treatment untreatable the data indicate improvement in her condition. Patient stated that her boyfriend he was tested and he was negative. I did advise her that he should be on isolation as well. Patient seen by pulmonary and critical care and their assessment indicating Acute Covid 19 related to pneumonia with the secondary respiratory failure started developing the symptoms in for 6 with the x-ray indicating pulmonary infiltrate and a CT angiogram as well patient treated with BiPAP and FiO2 of 100% and continued until now Precedex and with the agitation she had morphine as well as Xanax with the anxiety, her marker was elevated including CRP and LDH a nd a d-dimer she currently intermittently had trial of BiPAP support intermittently followed withAirvo at 60 L and subsequently on 100% nonrebreather mask. Acute hypoxic respiratory failure secondary to the above Fever with constitutional symptoms Hypertension which is controlled well with the adding beta marilee. Patient on dexamethasone 6 mg twice a day,dexmedetomidine, Lovenox 40 mg twice daily. On examination today Vital sign indicating that pulse rate is 82/m regular sinus temperature 98.3 F oral, respiratory rate still fluctuating 28 and 34 better minute next Blood pressure 139/99 and oxygen saturation is improving and currently is 92 with the high flow 60 percent. Laboratory her white count 17, hemoglobin 12.1 with a hematocrit 37.3 and platelet count 214 Electrolytes, sodium 137, potassium 3.8, chloride 100, carbon dioxide 32 BUN 19 creatinine 0.54 with a GFR for -[place] is more than 90. Blood sugar 139 with the controlled with POC and insulin. Marker: C-reactive protein 0.7 LDH 2602, d-dimer 11.4 Hold on both indicating gradual improvement. But not yet clear. On exam conscious alert. The head was normocephalic and atraumatic Chest lung is created bilaterally with the basilar rhonchi's. Heart regular sinus rhythm. Abdomen positive bowel sounds and started oral intake. Extremities no edema and positive pulses. Assessment: #1 acute symptomatic Covid 19 pneumonia associated with acute hypoxic respiratory failure. Diabetes mellitus controlled Hypertension controlled History of asthma and COPD. Plan: Continue current treatment and the plan and the treatments discussed with the patient Objective - Vital Signs Vital signs: Vital Signs Temp 98.3 F 06/29/20 12:00 Pulse 82 06/29/20 14:00 Resp 34 H 06/29/20 14:00 BP 139/99 06/29/20 14:00 Pulse Ox 92 L 06/29/20 14:00 Intake & Output 06/28/20 06/29/20 06/29/20 18:59 06:59 18:59 Intake Total 5746.628 9984.978 1647.324 Output Total 1295 1475 1575 Balance 589.441 263.978 72.324 Weight 85 kg Intake: IV 1200 1200 800 Sodium Chloride 0.9% 1, 1200 1200 800 000 ml @ 100 mls/hr IV . Q10H JAILYN Rx#:[id number] Intake, IV Titration 204.441 138.978 97.324 Amount Clevidipine Butyrate 25 46.934 mg In Empty Bag 1 bag @ 1 MG/HR 2 mls/hr IV .Q24H JAILYN Rx#:[id number] Dexmedetomidine/0.9% NaCl 157.507 138.978 97.324 (Pmx) 400 mcg In Empty Bag 1 bag @ Titrate IV . Q0M JAILYN Rx#:[id number] Oral 480 400 750 Output: Urine 1295 1475 1575 Other: Voiding Method Indwelling Catheter Indwelling Catheter Indwelling Catheter - Labs CBC & Chem 7: 06/29/20 04:23 06/29/20 04:23 Labs: Abnormal Lab Results - Last 24 Hours (Table) 06/28/20 06/28/20 06/29/20 Range/Units 17:41 20:40 04:23 WBC (3.8-10.6) k/uL Neutrophils # (1.3-7.7) k/uL D-Dimer 11.40 H (<0.60) mg/L FEU Carbon Dioxide (22-30) mmol/L BUN (7-17) mg/dL Glucose (74-99) mg/dL POC Glucose (mg/dL) 131 H 198 H (75-99) mg/dL Lactate Dehydrogenase (313-618) U/L 06/29/20 06/29/20 06/29/20 Range/Units 04:23 04: 06:42 WBC 17.0 H (3.8-10.6) k/uL Neutrophils # 15.1 H (1.3-7.7) k/uL D-Dimer (<0.60) mg/L FEU Carbon Dioxide 32 H (22-30) mmol/L BUN 19 H (7-17) mg/dL Glucose 139 H (74-99) mg/dL POC Glucose (mg/dL) 126 H (75-99) mg/dL Lactate Dehydrogenase 2602 H (313-618) U/L 06/29/20 Range/Units 11:55 WBC (3.8-10.6) k/uL Neutrophils # (1.3-7.7) k/uL D-Dimer (<0.60) mg/L FEU Carbon Dioxide (22-30) mmol/L BUN (7-17) mg/dL Glucose (74-99) mg/dL POC Glucose (mg/dL) 173 H (75-99) mg/dL Lactate Dehydrogenase (313-618) U/L Microbiology - Last 24 Hours (Table) 06/22/20 23:10 Blood Culture - Final Blood No Growth after 144 hours 06/22/20 23:15 Blood Culture - Final Blood No Growth after 144 hours
[2020-06-29 17:16] LABS: Glucose,Whole Blood 63 mg/dL (75-99)
[2020-06-29 17:29] LABS: Glucose,Whole Blood 133 mg/dL (75-99)
[2020-06-29 21:00] LABS: Glucose,Whole Blood 174 mg/dL (75-99)
[2020-06-30] MEDS: MORPHINE SULFATE 2 MG/ML SYRINGE IVP PRN (02:57)
[2020-06-30] MEDS: SODIUM CHLORIDE 0.9% 1,000 ML IV SCH ×2 (04:13→10:55)
[2020-06-30 04:49] LABS: Basophils % (A) 0 %; Eosinophils % (A) 0 %; HCT 35.3 % (34.0-46.0); HGB 11.9 gm/dL (11.4-16.0); Lymphocytes # (A) 1.3 k/uL (1.0-4.8); Lymphocytes % (A) 6 %; MCH 27.3 pg (25.0-35.0); MCHC 33.8 g/dL (31.0-37.0); MCV 80.8 fL (80.0-100.0); Mean Platelet Volume 7.3; Monocytes # (A) 0.4 k/uL (0-1.0); Monocytes % (A) 2 %; Neutrophils # (A) 20.7 k/uL (1.3-7.7); Neutrophils % (A) 91 %; Platelet Count 200 k/uL (150-450); RBC 4.37 m/uL (3.80-5.40); RDW 14.6 % (11.5-15.5); WBC 22.7 k/uL (3.8-10.6)
[2020-06-30 05:33] LABS: ALT 163 U/L (4-34); AST 99 U/L (14-36); African American GFR (CKD) >90 (>60 ml/min/1.73 sqM); Albumin 3.5 g/dL (3.5-5.0); Alkaline Phosphatase 151 U/L (38-126); Anion Gap 6 mmol/L; Blood Urea Nitrogen 16 mg/dL (7-17); Calcium 8.8 mg/dL (8.4-10.2); Carbon Dioxide 31 mmol/L (22-30); Chloride 98 mmol/L (98-107); Glucose 211 mg/dL (74-99); Non-African American GFR(CKD) >90 (>60 ml/min/1.73 sqM); Potassium 3.5 mmol/L (3.5-5.1); Sodium 135 mmol/L (137-145); Total Bilirubin 0.8 mg/dL (0.2-1.3); Total Protein 6.3 g/dL (6.3-8.2)
[2020-06-30] MEDS: DEXMEDETOMIDINE/0.9% NACL(PMX) 400 MCG in EMPTY BAG 1 BAG IV SCH (05:36)
[2020-06-30 05:51] LABS: C Reactive Protein <0.5 mg/dL (<1.0); LDH 2578 U/L (313-618)
[2020-06-30 06:59] LABS: Glucose,Whole Blood 128 mg/dL (75-99)
[2020-06-30] MEDS ORDERED: Potassium Replacement Protocol 1 EACH MISC MISCELLANE PRN (07:38)
--- NOTE | 2020-06-30 07:56 | XR ---
EXAMINATION TYPE: XR chest 1V portable DATE OF EXAM: 06/30/2020 Comparison: 06/27/2020 Clinical History: 49 year-old female COVID Findings: Right PICC tip in the lower right atrium. Heart borderline in size. Diffuse groundglass changes persi st. Opacities are becoming more confluent in the lower lungs. Impression: Persistent bilateral diffuse groundglass with infiltrates becoming more confluent now in the lower jb ngs.
[2020-06-30] MEDS: INSULIN ASPART (NovoLOG) 100 UNIT/ML VIAL SQ SCH ×4 (09:10→20:29)
[2020-06-30] MEDS: POTASSIUM CHLORIDE 10 MEQ in WATER FOR INJECTION 1 100ML.BAG IVPB SCH ×4 (09:24→14:51)
[2020-06-30] MEDS: ASCORBIC ACID 500 MG TAB PO SCH (09:25)
[2020-06-30] MEDS: ENOXAPARIN 40 MG/0.4 ML SYRINGE SQ SCH ×2 (09:25→20:11)
[2020-06-30] MEDS: DEXAMETHASONE SOD PHOSPHATE 10 MG/ML 1 ML VIAL IV SCH ×2 (09:25→20:11)
[2020-06-30] MEDS: amLODIPine 10 MG TAB PO SCH (09:25)
[2020-06-30] MEDS: CHOLECALCIFEROL 25 MCG (1000 IU) TABLET PO SCH (09:25)
[2020-06-30] MEDS: FAMOTIDINE 20 MG TAB PO SCH ×2 (09:25→20:11)
[2020-06-30] MEDS: ZINC SULFATE 220 MG CAP PO SCH (09:26)
[2020-06-30] MEDS: METOPROLOL SUCCINATE (ER) 25 MG TAB.ER.24H PO SCH (09:26)
[2020-06-30] MEDS: LISINOPRIL-HCTZ 20-12.5 MG 1 EACH TAB PO SCH (09:26)
[2020-06-30] MEDS: ALPRAZolam 0.5 MG TAB PO PRN ×2 (09:34→20:11)
--- NOTE | 2020-06-30 09:58 | P.PN ---
Subjective Progress Note Date: 06/30/20 49 yo female patient hospitalized for COVID 19 pneumonia. The patient presented to the hospital because of worsening shortness of breath. Patient had nonproductive cough and fever and chills and myalgia. The patient is currently on oxygen at 15 L high flow. Initially she was on 6 L and she was brought up to 15 L. The chest x-ray is showing diffuse bilateral pulmonary infiltrates consistent with pneumonia. The CAT scan of the chest also showed diffuse bilateral groundglass pulmonary infiltrates both in the upper and lower lobes and the infiltrates are quite extensive at this point in time. The patient has no pulmonary embolism. As for the blood work, the patient has a d-dimer 1.37, the LDH was 3282 and the CRP level is at 83. The patient was given Decadron 6 mg IV. The patient will be placed on Lovenox. The patient will be admitted to the medical floor. The patient symptoms started approximately 6 days ago and since then the patient gradually On 06/24/2020, the patient is transferred to the intensive care unit. This transplant occurred early this morning. I saw this patient in intensive care unit this morning. Nevertheless, yesterday she was in the emergency. At a time of my arrival, the patient was desaturating and I put her on high flow oxygen at 6 L with an FiO2 of 100%. Overnight, the patient became more tachypneic and hypoxic. Based on that, the patient got transferred to the intensive care unit and the patient was placed on BiPAP which is currently at a pressure of 12/5 cm of water and FiO2 of 100%. She is currently generating a volume of 450 mL and her respiratory rate is quite high in the low 40s. As such, the patient carries a very high minute ventilation. In terms of her Covid 19 pneumonia, started on Decadron 6 mg IV every 24 hours. The patient was also given Tocilizumab yesterday without any major side effects or toxicities. She remains h emodynamically stable. She is producing adequate amount of urine output. She was a bit anxious yesterday and restless and she was given morphine and Xanax which calmed her down considerably. In terms of her blood work, the blood work is still pending. The chest x-ray is also pending for now. She has improved considerably with morphine which took some of her restlessness and agitation away. She remains on Decadron. She remains on Lovenox 40 mg subcu every 24 hours. On 06/25/2020, the patient remains on a BiPAP at a pressure of 14/10 with an FiO2 of 100. She obviously decompensated yesterday. She got transferred to the intensive care unit. She was placed in a foam body positioning while in the BiPAP and she was able to tolerate that. Total of 3 hours. This obviously help with her oxygenation. Her current pulse ox is in the mid 80s. She was progressing and the patient was placed on Decadron and combination with Tocilizumab and the patient is also on anticoagulation with Lovenox. She is slightly more stable compared to yesterday. She is currently in a supine body position. She is on the same BiPAP setting. D-dimer is at 1.28 and the rest of the inflammatory markers show a LDH of 3894 and the CRP of 17.4. The chest x- ray from today is showing diffuse bilateral pulmonary infiltrates consistent with Covid 19 related pneumonia. The chest x-ray findings probably are looking slightly better compared to yesterday. Otherwise, she is receiving IV fluids of normal saline at the rate of 100 mL an hour. She is producing adequate amount of urine output. No fever. She is less anxious while being on Precedex which is currently running at 0.5 mcg/kg per minute. No hemodynamic changes. No bradycardia. No agitation. No restlessness pH is able to communicate fairly well while being on a BiPAP. 06/26/2020, the patient is being seen for a follow-up. She is BiPAP dependent and she remains on a BiPAP at a pressure of 14/10 with an FiO2 of 95%. The incision same sitting exacerbates with some limited improvement in oxygenation and limited And FiO2. Current pulse ox is 94%. She managed to go in a prone body positioning for several hours yesterday and currently she is back supine and she's sleeping on her left side for now. She is quite comfortable at this point in time. She is awake and communicating. She is becoming progressively more weak and debilitated. She is also anxious. Repeat chest x-ray was done today and the findings are essentially stable compared to yesterday.. The patient remains on IV Decadron. She received Tocilizumab and she also received convalescent plasma. She is on Lovenox also for anticoagulation. In terms of her markers, the d-dimer currently is at 8.87 and the LDH level is currently at 3864 and the CRP is at 11.2. She is still on Precedex which is running at 0.7 mcg/kg per minute. Oral intake is minimal as the patient is strictly BiPAP dependent and she desaturates once off the BiPAP. IV fluids are running at the rate of 100 mL an hour of normal saline. Or 2020, the patient is transitioned to a high flow oxygen and currently she is on 60 L with an FiO2 of 90%. She is able to maintain a pulse ox of 95%. Note that she was on BiPAP for 3 days in ago and she was doing very well on the BiPAP and she was doing prone body positioning periodically. This morning, she got transitioned to high flow oxygen. She is doing slightly better. She is less short of breath. Her current pulse ox is 94%. Rest of the hemodynamics are all stable. The patient is still tachypneic and she is unable to complete full sentences. She has short of breath. However, the fact that she is off the BiPAP is a big step for her and she states that her breathing is improved compared to yesterday. The patient's chest x-ray showing diffuse interstitial infiltrates bilaterally left more than right, unchanged compared to yesterday. Her d-dimer is elevated at 12.3. LDH level is at 3149 improved and his CRP level is at 7.4, improved. The patient is on Lovenox 40 mg subcu every 24 hours. The patient is also on Decadron 6 mg IV every 24 hours. She is still on Precedex at a dose of 0.7 mcg/kg per minute. She is also on several practitioners running at 2 mg an hour for blood pressure control. She remains on metoprolol 25 mg by mouth daily. Cozaar was replaced with Zestoretic 20/12.5 one tablet a day. Will be given some limited amount of soft or clear liquid diet today now that she is on high flow oxygen in conjunction with the percent nonrebreather facemask. 06/28/2020, the patient is back on BiPAP. She was transitioned to high flow oxygen yesterday at 60 L with an FiO2 of 90%. She was given for a total of 6 hours yesterday and following that she was switched back on a BiPAP and the current pressures are 14/10 with an FiO2 of other percent. She is quite comfortable currently. Earlier this morning, she was getting worked up and she was tachypneic and she was desaturating. She was given morphine which helped her quite a bit. She is on Precedex which is running at 0.7 mcg/kg per minute. The patient is d-dimer is up to 4.3, the LDH level is down trending is down to 2797 with a CRP of 0.8. The chest x-ray is showing diffuse bilateral groundglass pulmonary infiltrates, unchanged compared to yesterday. He is hemodynamically stable. In terms of blood pressure control, she is on Catapres at 4 mg an hour. She is also taking oral antihypertensive medication and she is currently on Norvasc 5 mg by mouth daily, lisinopril hydrochlorothiazide 20/12.5 one tab today and she is also on metoprolol XL 25 mg by mouth daily. We'll make the necessary adjustments on the blood pressure medications to wean off the Celebrex drip. Her oral intake is minimal. She is quite weak. She is alert and awake and she is communicating. She remains highly anxious. 06/29/2020 patient seen in follow-up in the intensive care unit, overnight patient was maintained on BiPAP, this morning he is on Airvo at 60 L/m and FiO2 of 100%, her pulse ox is 87-92%, patient seems comfortable, no acute distress was noted, she was able to eat half of her breakfast tray, her BiPAP settings were 14/10 with FiO2 of 100%, her inflammatory markers are downtrending on today's labs, LDH his 2602, CRP is 0.7, and a d-dimer still elevated but is showing a trend down, to 11.4. No new chest x-ray from today, yesterday chest x-ray showed stable findings with diffuse "groundglass opacities bilaterally without significant change, overall clinically she seems to be improving, and he is tolerating trials off the BiPAP support and on high flow oxygen in addition to nonrebreather mask, no complaints of chest discomfort, her cough has subsided, she is able to take deeper breaths, lung sounds reveal bibasilar [place], she is awake and alert, no altered mentation, she is moving all 4 extremities, optimistic about her recovery On 06/30/2000 patient seen in follow-up in the intensive care unit, she is alert, in no acute distress, her Airvo earlier was at 60 L and FiO2 of 80%, she had since been switched to high flow nasal cannula at 15 L in addition to 100% nonrebreather, she seems to be much more comfortable on that oxygen set up, her pulse ox is 93-96%, no worsening dyspnea, she is awake alert, oriented 3, she is sitting up in bed, no cough, she is afebrile, vital signs are stable, she is currently on 0.9 normal saline at a rate of 100 ML per hour, her appetite is fair, she's been tolerating oral intake. Today's chest x-ray has been reviewed, showing persistent bilateral diffuse groundglass opacities with infiltrates that are becoming a bit more confluent in the lower lungs. Today's labs show white blood cell count of 22.7, and this is increased from yesterday's labs, from 17, today's hemoglobin is 11.9, platelet count is 200, d-dimer of 7.76, downtrending, sodium is 135, potassium is 3.5, chloride is 98, CO2 is 21, BUN of 16, creatinine 0.50, her liver enzymes show AST of 99, relatively stable, ALT has trended up, up to 163, alkaline phosphatase is 151, improving, LDH on today's lab is 2578, improving, and the CRP is less than 0.5. In terms of therapy she remains on Decadron 6 mg twice daily IV push, and she is on Lovenox 40 mg subcu twice a day, Loprox drip has been weaned off, and patient was resumed on her home medications in the form of Zestoretic, 2012 0.5, she is on Toprol-XL 25 mg daily, and she is on Norvasc 10 mg daily. Her blood pressures are better controlled ranging from 1:30 to 150 systolic, and diastolic in the 90s, and the map of 111. Objective - Vital Signs Vital signs: Vital Signs Temp 97.5 F L 06/30/20 04:00 Pulse 81 06/30/20 09:00 Resp 28 H 06/30/20 09:00 BP 147/94 06/30/20 09:00 Pulse Ox 93 L 06/30/20 09:00 Intake & Output 06/29/20 06/30/20 06/30/20 18:59 06:59 18:59 Intake Total 2047.324 1520 345.096 Output Total 2450 2320 440 Balance -402.676 -800 -94.904 Weight 84.9 kg Intake: IV 1200 1200 300 Sodium Chloride 0.9% 1, 1200 1200 300 000 ml @ 100 mls/hr IV . Q10H JAILYN Rx#:[id number] Intake, IV Titration 97.324 200 45.096 Amount Dexmedetomidine/0.9% NaCl 97.324 200 45.096 (Pmx) 400 mcg In Empty Bag 1 bag @ Titrate IV . Q0M JAILYN Rx#:[id number] Oral 750 120 Output: Urine 2450 2320 440 Other: Voiding Method Indwelling Catheter Indwelling Catheter # Bowel Movements 1 - Exam The patient is lethargic, and the patient remains a mild degree of respiratory distress, somewhat improved from yesterday's exam, patient's currently on 15 L high flow and percent nonrebreather mask, breathing comfortably, with pulse ox of 93-96%, tolerating it fairly well, off BiPAP support Head exam was generally normal. There was no scleral icterus or corneal arcus. Mucous membranes were moist. Neck was supple and without jugular venous distension, thyromegaly, or carotid bruits. Carotids were easily palpable bilaterally. There was no adenopathy. Lungs sounds are showing factors in the mid and lower lung linares bilaterally and there is extensive crackling for now , tachypneic Cardiac exam revealed the PMI to be normally situated and sized. The rhythm was regular and no extrasystoles were noted during several minutes of auscultation. The first and second heart sounds were normal and physiologic splitting of the second heart sound was noted. There were no murmurs, rubs, clicks, or gallops. Abdominal exam revealed normal bowel sounds. The abdomen was soft, non-tender, and without masses, organomegaly, or appreciable enlargement of the abdominal aorta. Examination of the extremities revealed easily palpable radial, femoral and pedal pulses. There was no cyanosis, clubbing or edema. Examination of the skin revealed no evidence of significant rashes, suspicious appearing nevi or other concerning lesions. Neurologically the patient is lethargic and she is weak. There is global weakness. No focal neurological deficit. Cranial nerves are intact. - Labs CBC & Chem 7: 06/30/20 04:17 06/30/20 04:17 Labs: Abnormal Lab Results - Last 24 Hours (Table) 06/29/20 06/29/20 06/29/20 Range/Units 11:55 17:15 17:28 WBC (3.8-10.6) k/uL Neutrophils # (1.3-7.7) k/uL D-Dimer (<0.60) mg/L FEU Sodium (137-145) mmol/L Carbon Dioxide (22-30) mmol/L Creatinine (0.52-1.04) mg/dL Glucose (74-99) mg/dL POC Glucose (mg/dL) 173 H 63 L 133 H (75-99) mg/dL AST (14-36) U/L ALT (4-34) U/L Alkaline Phosphatase (38-126) U/L Lactate Dehydrogenase (313-618) U/L 06/29/20 06/30/20 06/30/20 Range/Units 20:59 04:17 04:17 WBC 22.7 H (3.8-10.6) k/uL Neutrophils # 20.7 H (1.3-7.7) k/uL D-Dimer 7.76 H (<0.60) mg/L FEU Sodium (137-145) mmol/L Carbon Dioxide (22-30) mmol/L Creatinine (0.52-1.04) mg/dL Glucose (74-99) mg/dL POC Glucose (mg/dL) 174 H (75-99) mg/dL AST (14-36) U/L ALT (4-34) U/L Alkaline Phosphatase (38-126) U/L Lactate Dehydrogenase (313-618) U/L 06/30/20 06/30/20 Range/Units 04:17 06:58 WBC (3.8-10.6) k/uL Neutrophils # (1.3-7.7) k/uL D-Dimer (<0.60) mg/L FEU Sodium 135 L (137-145) mmol/L Carbon Dioxide 31 H (22-30) mmol/L Creatinine 0.50 L (0.52-1.04) mg/dL Glucose 211 H (74-99) mg/dL POC Glucose (mg/dL) 128 H (75-99) mg/dL AST 99 H (14-36) U/L ALT 163 H (4-34) U/L Alkaline Phosphatase 151 H (38-126) U/L Lactate Dehydrogenase 2578 H (313-618) U/L Assessment and Plan Plan: Assessment: 1 acute COVID 19 related pneumonia with secondary respiratory failure. The patient started developing symptoms on 06/17/2020 with chest x-ray showing diffuse but the pulmonary infiltrates and sooner findings were also seen on the CT angiogram. The patient is currently in the intensive care unit on a BiPAP at a pressure of 14/10 with an FiO2 of 100%. She remains on Precedex. She remains on morphine to be given a stat basis to control her breathlessness and agitation and anxiety. Inflammatory markers including LDH is dropping, CRP is dropping, d-dimer remains elevated. Today on 06/30/2020 patient is often irritable, and tolerating 15 L high flow in 100% nonrebreather and maintaining O2 saturations above 90% 2 acute hypoxic respiratory failure secondary to above 3 elevated inflammatory markers secondary to above, d-dimer is elevated 4 fever and constitutional symptoms secondary to above 5 hypertension 6 previous history of substance abuse plan: Current medical treatment, continue steroids in the form of Decadron 6 mg twice daily, Dexmedetomidine has been placed on hold, the patient is being managed with oral medications tolerating it well, breathing easier Lovenox at 40 mg twice daily, continue monitoring daily inflammatory markers and d-dimer, follow-up chest x-ray tomorrow, continue weaning FiO2 to maintain O2 saturations above 90% Provide incentive spirometer patient is tolerating oral intake, blood pressure control is improved. Continue to closely monitor the patient in the intensive care unit I performed a history & physical examination of the patient and discussed their management with my nurse practitioner, Keily Calhoun. I reviewed the nurse practitioner's note and agree with the documented findings and plan of care. Lung sounds are positive for bibasilar crackles. The findings and the impression was discussed with the patient. I attest to the documentation by the nurse practitioner. Time with Patient: Greater than 30
[2020-06-30 11:51] LABS: Glucose,Whole Blood 124 mg/dL (75-99)
[2020-06-30 16:53] LABS: Glucose,Whole Blood 132 mg/dL (75-99)
--- NOTE | 2020-06-30 17:30 | P.PN ---
Subjective Progress Note Date: 06/30/20 (2. Start improvement off high flow oxygen) Progress note date of service 06/30/[address] Jones. Patient seen [id number] in ICU room #267 bed 1 Patient felt hungry and eating at this time and she is on nasal cannula oxygen Conscious alert oriented. Head was normocephalic and atraumatic. Oropharynx was negative, pupil was equal reactive, Neck was supple no JVD no thyromegaly no lymphadenopathy. Chest still has rhonchi's bilaterally with deep inspiration. Heart regular sinus however hypertension and and the heart rate still tachycardia and the blood pressure fluctuating. The abdomen was soft positive bowel sounds and able to eat no nausea no vomiting Extremities no edema. Positive pulses. Laboratory: WBC 22.7 with the bone marrow responding as recovering. Her d-dimer 7.76 with the start of down trend with the yesterday was 11.4 on the 06/29/2020. Renal function is normal more than 90 and AST, transaminases elevated CRP less than 0.5 which is good prognostic for improvement, LDH still fluctuating. Blood sugar and glucose is monitored colored with insulin. Heart rate is 106, blood pressure 146/100 and we going to increase the metoprolol succinate to 50 mg once a day Her pulse ox on room air was 90% still will need some supplementation after she ate and off on the high flow Assessment: Clinical improvement from Covid19 pneumonia. Diabetes mellitus covered with insulin Still her respiratory rate is fast 33 permanent. Hypertension is still uncontrolled well. Marker has been fluctuating but in the trend of improvement. Plan: Continue the current treatment and will see tomorrow how much improvement. We will And Vasotec 1.25 mg every 4-6 hour when necessary for increased sudden increase of blood pressure and increase the metoprolol succinate to 50 mg once daily. Objective - Vital Signs Vital signs: Vital Signs Temp 98.2 F 06/30/20 16:00 Pulse 105 H 06/30/20 17:00 Resp 31 H 06/30/20 17:00 BP 161/102 06/30/20 17:00 Pulse Ox 91 L 06/30/20 17:00 Intake & Output 06/29/20 06/30/20 06/30/20 18:59 06:59 18:59 Intake Total 2047.324 1520 995.096 Output Total 2450 2320 1520 Balance -402.676 -800 -524.904 Weight 84.9 kg 84.9 kg Intake: IV 1200 1200 950 Potassium Chloride 10 meq 300 In Water For Injection 1 100ml.bag @ 100 mls/hr IVPB Q1HR JAILYN Rx#: [id number] Sodium Chloride 0.9% 1, 1200 1200 300 000 ml @ 100 mls/hr IV . Q10H JAILYN Rx#:[id number] Sodium Chloride 0.9% 1, 350 000 ml @ 50 mls/hr IV . Q20H JAILYN Rx#:[id number] Intake, IV Titration 97.324 200 45.096 Amount Dexmedetomidine/0.9% NaCl 97.324 200 45.096 (Pmx) 400 mcg In Empty Bag 1 bag @ Titrate IV . Q0M JAILYN Rx#:[id number] Oral 750 120 Output: Urine 2450 2320 1520 Other: Voiding Method Indwelling Catheter Indwelling Catheter Indwelling Catheter # Bowel Movements 1 1 - Labs CBC & Chem 7: 06/30/20 04:17 06/30/20 04:17 Labs: Abnormal Lab Results - Last 24 Hours (Table) 06/29/20 06/29/20 06/30/20 Range/Units 17:28 20:59 04:17 WBC 22.7 H (3.8-10.6) k/uL Neutrophils # 20.7 H (1.3-7.7) k/uL D-Dimer (<0.60) mg/L FEU Sodium (137-145) mmol/L Carbon Dioxide (22-30) mmol/L Creatinine (0.52-1.04) mg/dL Glucose (74-99) mg/dL POC Glucose (mg/dL) 133 H 174 H (75-99) mg/dL AST (14-36) U/L ALT (4-34) U/L Alkaline Phosphatase (38-126) U/L Lactate Dehydrogenase (313-618) U/L 06/30/20 06/30/20 06/30/20 Range/Units 04:17 04:17 06:58 WBC (3.8-10.6) k/uL Neutrophils # (1.3-7.7) k/uL D-Dimer 7.76 H (<0.60) mg/L FEU Sodium 135 L (137-145) mmol/L Carbon Dioxide 31 H (22-30) mmol/L Creatinine 0.50 L (0.52-1.04) mg/dL Glucose 211 H (74-99) mg/dL POC Glucose (mg/dL) 128 H (75-99) mg/dL AST 99 H (14-36) U/L ALT 163 H (4-34) U/L Alkaline Phosphatase 151 H (38-126) U/L Lactate Dehydrogenase 2578 H (313-618) U/L 06/30/20 06/30/20 Range/Units 11:49 16:51 WBC (3.8-10.6) k/uL Neutrophils # (1.3-7.7) k/uL D-Dimer (<0.60) mg/L FEU Sodium (137-145) mmol/L Carbon Dioxide (22-30) mmol/L Creatinine (0.52-1.04) mg/dL Glucose (74-99) mg/dL POC Glucose (mg/dL) 124 H 132 H (75-99) mg/dL AST (14-36) U/L ALT (4-34) U/L Alkaline Phosphatase (38-126) U/L Lactate Dehydrogenase (313-618) U/L
[2020-06-30] MEDS: ENALAPRILAT 1.25 MG/ML 1 ML VIAL IVP PRN (17:33)
[2020-06-30] MEDS: ACETAMINOPHEN TAB 325 MG TAB PO PRN (20:16)
[2020-06-30 20:24] LABS: Glucose,Whole Blood 164 mg/dL (75-99)
[2020-07-01] MEDS: ENALAPRILAT 1.25 MG/ML 1 ML VIAL IVP PRN ×2 (03:05→07:12)
[2020-07-01 04:35] LABS: Basophils # (A) 0.1 k/uL (0-0.2); Basophils % (A) 0 %; Eosinophils # (A) 0.1 k/uL (0-0.7); Eosinophils % (A) 0 %; HCT 35.3 % (34.0-46.0); HGB 11.1 gm/dL (11.4-16.0); Lymphocytes # (A) 1.8 k/uL (1.0-4.8); Lymphocytes % (A) 8 %; MCH 25.9 pg (25.0-35.0); MCHC 31.5 g/dL (31.0-37.0); MCV 82.2 fL (80.0-100.0); Mean Platelet Volume 7.6; Monocytes # (A) 0.5 k/uL (0-1.0); Monocytes % (A) 2 %; Neutrophils # (A) 21.8 k/uL (1.3-7.7); Neutrophils % (A) 89 %; Platelet Count 213 k/uL (150-450); RDW 15.1 % (11.5-15.5); WBC 24.6 k/uL (3.8-10.6)
[2020-07-01 04:53] LABS: ALT 135 U/L (4-34); AST 50 U/L (14-36); African American GFR (CKD) >90 (>60 ml/min/1.73 sqM); Albumin 1.9 g/dL (3.5-5.0); Alkaline Phosphatase 74 U/L (38-126); Anion Gap 0 mmol/L; Blood Urea Nitrogen 10 mg/dL (7-17); C Reactive Protein 0.6 mg/dL (<1.0); Carbon Dioxide 22 mmol/L (22-30); Chloride 118 mmol/L (98-107); Glucose 89 mg/dL (74-99); LDH 1391 U/L (313-618); Non-African American GFR(CKD) >90 (>60 ml/min/1.73 sqM); Sodium 140 mmol/L (137-145); Total Bilirubin 0.5 mg/dL (0.2-1.3)
[2020-07-01 05:03] LABS: Calcium 5.3 mg/dL (8.4-10.2); Potassium 2.1 mmol/L (3.5-5.1)
[2020-07-01] MEDS ORDERED: Potassium Replacement Protocol 1 EACH MISC MISCELLANE PRN (05:04)
[2020-07-01] MEDS: POTASSIUM CHLORIDE 20 MEQ in WATER FOR INJECTION 1 100ML.BAG IVPB SCH ×3 (05:13→10:17)
[2020-07-01] MEDS: SODIUM CHLORIDE 0.9% 1,000 ML IV SCH (05:22)
[2020-07-01 06:42] LABS: Glucose,Whole Blood 114 mg/dL (75-99)
[2020-07-01] MEDS: INSULIN ASPART (NovoLOG) 100 UNIT/ML VIAL SQ SCH ×4 (06:42→20:53)
[2020-07-01] MEDS: CHOLECALCIFEROL 25 MCG (1000 IU) TABLET PO SCH (08:13)
[2020-07-01] MEDS: ENOXAPARIN 40 MG/0.4 ML SYRINGE SQ SCH (08:13)
[2020-07-01] MEDS: FAMOTIDINE 20 MG TAB PO SCH ×2 (08:13→20:59)
[2020-07-01] MEDS: DEXAMETHASONE SOD PHOSPHATE 10 MG/ML 1 ML VIAL IV SCH ×2 (08:13→09:39)
[2020-07-01] MEDS: amLODIPine 10 MG TAB PO SCH (08:13)
[2020-07-01] MEDS: ASCORBIC ACID 500 MG TAB PO SCH (08:13)
[2020-07-01] MEDS: ZINC SULFATE 220 MG CAP PO SCH (08:14)
[2020-07-01] MEDS: ALPRAZolam 0.5 MG TAB PO PRN (08:14)
[2020-07-01] MEDS: LISINOPRIL-HCTZ 20-12.5 MG 1 EACH TAB PO SCH (08:14)
[2020-07-01] MEDS: METOPROLOL SUCCINATE (ER) 50 MG TAB.ER.24H PO SCH (08:14)
[2020-07-01] MEDS ORDERED: ENOXAPARIN 40 MG/0.4 ML SYRINGE SQ SCH (09:00)
[2020-07-01] MEDS: cloNIDine HCL 0.1 MG TAB PO SCH ×3 (10:17→21:00)
--- NOTE | 2020-07-01 11:20 | P.PN ---
Subjective Progress Note Date: 07/01/20 49 yo female patient hospitalized for COVID 19 pneumonia. The patient presented to the hospital because of worsening shortness of breath. Patient had nonproductive cough and fever and chills and myalgia. The patient is currently on oxygen at 15 L high flow. Initially she was on 6 L and she was brought up to 15 L. The chest x-ray is showing diffuse bilateral pulmonary infiltrates consistent with pneumonia. The CAT scan of the chest also showed diffuse bilateral groundglass pulmonary infiltrates both in the upper and lower lobes and the infiltrates are quite extensive at this point in time. The patient has no pulmonary embolism. As for the blood work, the patient has a d-dimer 1.37, the LDH was 3282 and the CRP level is at 83. The patient was given Decadron 6 mg IV. The patient will be placed on Lovenox. The patient will be admitted to the medical floor. The patient symptoms started approximately 6 days ago and since then the patient gradually On 06/24/2020, the patient is transferred to the intensive care unit. This transplant occurred early this morning. I saw this patient in intensive care unit this morning. Nevertheless, yesterday she was in the emergency. At a time of my arrival, the patient was desaturating and I put her on high flow oxygen at 6 L with an FiO2 of 100%. Overnight, the patient became more tachypneic and hypoxic. Based on that, the patient got transferred to the intensive care unit and the patient was placed on BiPAP which is currently at a pressure of 12/5 cm of water and FiO2 of 100%. She is currently generating a volume of 450 mL and her respiratory rate is quite high in the low 40s. As such, the patient carries a very high minute ventilation. In terms of her Covid 19 pneumonia, started on Decadron 6 mg IV every 24 hours. The patient was also given Tocilizumab yesterday without any major side effects or toxicities. She remains h emodynamically stable. She is producing adequate amount of urine output. She was a bit anxious yesterday and restless and she was given morphine and Xanax which calmed her down considerably. In terms of her blood work, the blood work is still pending. The chest x-ray is also pending for now. She has improved considerably with morphine which took some of her restlessness and agitation away. She remains on Decadron. She remains on Lovenox 40 mg subcu every 24 hours. On 06/25/2020, the patient remains on a BiPAP at a pressure of 14/10 with an FiO2 of 100. She obviously decompensated yesterday. She got transferred to the intensive care unit. She was placed in a foam body positioning while in the BiPAP and she was able to tolerate that. Total of 3 hours. This obviously help with her oxygenation. Her current pulse ox is in the mid 80s. She was progressing and the patient was placed on Decadron and combination with Tocilizumab and the patient is also on anticoagulation with Lovenox. She is slightly more stable compared to yesterday. She is currently in a supine body position. She is on the same BiPAP setting. D-dimer is at 1.28 and the rest of the inflammatory markers show a LDH of 3894 and the CRP of 17.4. The chest x- ray from today is showing diffuse bilateral pulmonary infiltrates consistent with Covid 19 related pneumonia. The chest x-ray findings probably are looking slightly better compared to yesterday. Otherwise, she is receiving IV fluids of normal saline at the rate of 100 mL an hour. She is producing adequate amount of urine output. No fever. She is less anxious while being on Precedex which is currently running at 0.5 mcg/kg per minute. No hemodynamic changes. No bradycardia. No agitation. No restlessness pH is able to communicate fairly well while being on a BiPAP. 06/26/2020, the patient is being seen for a follow-up. She is BiPAP dependent and she remains on a BiPAP at a pressure of 14/10 with an FiO2 of 95%. The incision same sitting exacerbates with some limited improvement in oxygenation and limited And FiO2. Current pulse ox is 94%. She managed to go in a prone body positioning for several hours yesterday and currently she is back supine and she's sleeping on her left side for now. She is quite comfortable at this point in time. She is awake and communicating. She is becoming progressively more weak and debilitated. She is also anxious. Repeat chest x-ray was done today and the findings are essentially stable compared to yesterday.. The patient remains on IV Decadron. She received Tocilizumab and she also received convalescent plasma. She is on Lovenox also for anticoagulation. In terms of her markers, the d-dimer currently is at 8.87 and the LDH level is currently at 3864 and the CRP is at 11.2. She is still on Precedex which is running at 0.7 mcg/kg per minute. Oral intake is minimal as the patient is strictly BiPAP dependent and she desaturates once off the BiPAP. IV fluids are running at the rate of 100 mL an hour of normal saline. Or 2020, the patient is transitioned to a high flow oxygen and currently she is on 60 L with an FiO2 of 90%. She is able to maintain a pulse ox of 95%. Note that she was on BiPAP for 3 days in ago and she was doing very well on the BiPAP and she was doing prone body positioning periodically. This morning, she got transitioned to high flow oxygen. She is doing slightly better. She is less short of breath. Her current pulse ox is 94%. Rest of the hemodynamics are all stable. The patient is still tachypneic and she is unable to complete full sentences. She has short of breath. However, the fact that she is off the BiPAP is a big step for her and she states that her breathing is improved compared to yesterday. The patient's chest x-ray showing diffuse interstitial infiltrates bilaterally left more than right, unchanged compared to yesterday. Her d-dimer is elevated at 12.3. LDH level is at 3149 improved and his CRP level is at 7.4, improved. The patient is on Lovenox 40 mg subcu every 24 hours. The patient is also on Decadron 6 mg IV every 24 hours. She is still on Precedex at a dose of 0.7 mcg/kg per minute. She is also on several practitioners running at 2 mg an hour for blood pressure control. She remains on metoprolol 25 mg by mouth daily. Cozaar was replaced with Zestoretic 20/12.5 one tablet a day. Will be given some limited amount of soft or clear liquid diet today now that she is on high flow oxygen in conjunction with the percent nonrebreather facemask. 06/28/2020, the patient is back on BiPAP. She was transitioned to high flow oxygen yesterday at 60 L with an FiO2 of 90%. She was given for a total of 6 hours yesterday and following that she was switched back on a BiPAP and the current pressures are 14/10 with an FiO2 of other percent. She is quite comfortable currently. Earlier this morning, she was getting worked up and she was tachypneic and she was desaturating. She was given morphine which helped her quite a bit. She is on Precedex which is running at 0.7 mcg/kg per minute. The patient is d-dimer is up to 4.3, the LDH level is down trending is down to 2797 with a CRP of 0.8. The chest x-ray is showing diffuse bilateral groundglass pulmonary infiltrates, unchanged compared to yesterday. He is hemodynamically stable. In terms of blood pressure control, she is on Catapres at 4 mg an hour. She is also taking oral antihypertensive medication and she is currently on Norvasc 5 mg by mouth daily, lisinopril hydrochlorothiazide 20/12.5 one tab today and she is also on metoprolol XL 25 mg by mouth daily. We'll make the necessary adjustments on the blood pressure medications to wean off the Celebrex drip. Her oral intake is minimal. She is quite weak. She is alert and awake and she is communicating. She remains highly anxious. 06/29/2020 patient seen in follow-up in the intensive care unit, overnight patient was maintained on BiPAP, this morning he is on Airvo at 60 L/m and FiO2 of 100%, her pulse ox is 87-92%, patient seems comfortable, no acute distress was noted, she was able to eat half of her breakfast tray, her BiPAP settings were 14/10 with FiO2 of 100%, her inflammatory markers are downtrending on today's labs, LDH his 2602, CRP is 0.7, and a d-dimer still elevated but is showing a trend down, to 11.4. No new chest x-ray from today, yesterday chest x-ray showed stable findings with diffuse "groundglass opacities bilaterally without significant change, overall clinically she seems to be improving, and he is tolerating trials off the BiPAP support and on high flow oxygen in addition to nonrebreather mask, no complaints of chest discomfort, her cough has subsided, she is able to take deeper breaths, lung sounds reveal bibasilar [place], she is awake and alert, no altered mentation, she is moving all 4 extremities, optimistic about her recovery On 06/30/2000 patient seen in follow-up in the intensive care unit, she is alert, in no acute distress, her Airvo earlier was at 60 L and FiO2 of 80%, she had since been switched to high flow nasal cannula at 15 L in addition to 100% nonrebreather, she seems to be much more comfortable on that oxygen set up, her pulse ox is 93-96%, no worsening dyspnea, she is awake alert, oriented 3, she is sitting up in bed, no cough, she is afebrile, vital signs are stable, she is currently on 0.9 normal saline at a rate of 100 ML per hour, her appetite is fair, she's been tolerating oral intake. Today's chest x-ray has been reviewed, showing persistent bilateral diffuse groundglass opacities with infiltrates that are becoming a bit more confluent in the lower lungs. Today's labs show white blood cell count of 22.7, and this is increased from yesterday's labs, from 17, today's hemoglobin is 11.9, platelet count is 200, d-dimer of 7.76, downtrending, sodium is 135, potassium is 3.5, chloride is 98, CO2 is 21, BUN of 16, creatinine 0.50, her liver enzymes show AST of 99, relatively stable, ALT has trended up, up to 163, alkaline phosphatase is 151, improving, LDH on today's lab is 2578, improving, and the CRP is less than 0.5. In terms of therapy she remains on Decadron 6 mg twice daily IV push, and she is on Lovenox 40 mg subcu twice a day, Loprox drip has been weaned off, and patient was resumed on her home medications in the form of Zestoretic, 2012 0.5, she is on Toprol-XL 25 mg daily, and she is on Norvasc 10 mg daily. Her blood pressures are better controlled ranging from 1:30 to 150 systolic, and diastolic in the 90s, and the map of 111. On 07/01/2020 patient seen in follow-up in the intensive care unit, she is awake alert and oriented 3, she is currently sitting in the recliner, she is on 15 L per hypopneas cannula pulse ox is 94%, she is breathing comfortably, blood pressures running in the 160 to 170s systolic on 90s to low 100s diastolic, she's been afebrile, she is in sinus mechanism, she's had no acute events overnight, no worsening dyspnea, no cough, no chest discomfort, no new chest x- ray today, today's labs have been reviewed and d-dimer is improving and is down to 2.02, sodium is 140, potassium is 2.1 dyspnea and replacement of the vertic al, chloride is 118, BUN is 10, creatinine 0.24, calcium level is 5.3, AST is improving, down to 50, ALT is down to 135 from 163 on yesterday's labs, and alk phos is within normal limits, LDH is down to 1391, CRP is 0.6. She is tolerating oral intake, no nausea vomiting or diarrhea, in terms of therapy she remains on Decadron 6 g twice daily she is on Lovenox 40 mg twice daily and IV fluids at 50 ML per hour. Objective - Vital Signs Vital signs: Vital Signs Temp 97.2 F L 07/01/20 08:00 Pulse 116 H 07/01/20 09:00 Resp 29 H 07/01/20 09:00 BP 132/97 07/01/20 09:00 Pulse Ox 93 L 07/01/20 09:00 Intake & Output 06/30/20 07/01/20 07/01/20 18:59 06:59 18:59 Intake Total 1095.096 700 220 Output Total 1760 1540 310 Balance -664.904 -840 -90 Weight 84.9 kg 83.9 kg Intake: IV 1050 700 220 Potassium Chloride 10 meq 300 100 100 In Water For Injection 1 100ml.bag @ 100 mls/hr IVPB Q1HR JAILYN Rx#: [id number] Sodium Chloride 0.9% 1, 300 000 ml @ 100 mls/hr IV . Q10H JAILYN Rx#:[id number] Sodium Chloride 0.9% 1, 450 600 120 000 ml @ 20 mls/hr IV . Q24H JAILYN Rx#:[id number] Intake, IV Titration 45.096 Amount Dexmedetomidine/0.9% NaCl 45.096 (Pmx) 400 mcg In Empty Bag 1 bag @ Titrate IV . Q0M JAILYN Rx#:[id number] Output: Urine 1760 1540 310 Other: Voiding Method Indwelling Catheter Indwelling Catheter Toilet # Bowel Movements 1 1 1 - Exam GENERAL EXAM: Alert, very pleasant, 49-year-old can female on 15 L per high flow nasal cannula with pulse ox of 94%, breathing comfortably, sitting up in the recliner, comfortable in no apparent distress. HEAD: Normocephalic/atraumatic. EYES: Normal reaction of pupils, equal size. Conjunctiva pink, sclera white. NOSE: Clear with pink turbinates. THROAT: No erythema or exudates. NECK: No masses, no JVD, no thyroid enlargement, no adenopathy. CHEST: No chest wall deformity. Symmetrical expansion. LUNGS: Equal air entry with minimal bibasilar crackles CVS: Regular rate and rhythm, normal S1 and S2, no gallops, no murmurs, no rubs ABDOMEN: Soft, nontender. No hepatosplenomegaly, normal bowel sounds, no guarding or rigidity. EXTREMITIES: No clubbing, no edema, no cyanosis, 2+ pulses and upper and lower extremities. MUSCULOSKELETAL: Muscle strength and tone normal. SPINE: No scoliosis or deformity SKIN: No rashes CENTRAL NERVOUS SYSTEM: Alert and oriented -3. No focal deficits, tone is normal in all 4 extremities. PSYCHIATRIC: Alert and oriented -3. Appropriate affect. Intact judgment and insight. - Labs CBC & Chem 7: 07/01/20 04:25 07/01/20 04:25 Labs: Abnormal Lab Results - Last 24 Hours (Table) 06/30/20 06/30/20 06/30/20 Range/Units 11:49 16:51 20:23 WBC (3.8-10.6) k/uL Hgb (11.4-16.0) gm/dL Neutrophils # (1.3-7.7) k/uL D-Dimer (<0.60) mg/L FEU Potassium (3.5-5.1) mmol/L Chloride (98-107) mmol/L Creatinine (0.52-1.04) mg/dL POC Glucose (mg/dL) 124 H 132 H 164 H (75-99) mg/dL Calcium (8.4-10.2) mg/dL AST (14-36) U/L ALT (4-34) U/L Lactate Dehydrogenase (313-618) U/L Total Protein (6.3-8.2) g/dL Albumin (3.5-5.0) g/dL 07/01/20 07/01/20 07/01/20 Range/Units 04:25 04:25 04:25 WBC 24.6 H (3.8-10.6) k/uL Hgb 11.1 L (11.4-16.0) gm/dL Neutrophils # 21.8 H (1.3-7.7) k/uL D-Dimer 2.06 H (<0.60) mg/L FEU Potassium 2.1 L* (3.5-5.1) mmol/L Chloride 118 H (98-107) mmol/L Creatinine 0.24 L (0.52-1.04) mg/dL POC Glucose (mg/dL) (75-99) mg/dL Calcium 5.3 L* (8.4-10.2) mg/dL AST 50 H (14-36) U/L ALT 135 H (4-34) U/L Lactate Dehydrogenase 1391 H (313-618) U/L Total Protein 4.0 L (6.3-8.2) g/dL Albumin 1.9 L (3.5-5.0) g/dL 07/01/20 Range/Units 06:41 WBC (3.8-10.6) k/uL Hgb (11.4-16.0) gm/dL Neutrophils # (1.3-7.7) k/uL D-Dimer (<0.60) mg/L FEU Potassium (3.5-5.1) mmol/L Chloride (98-107) mmol/L Creatinine (0.52-1.04) mg/dL POC Glucose (mg/dL) 114 H (75-99) mg/dL Calcium (8.4-10.2) mg/dL AST (14-36) U/L ALT (4-34) U/L Lactate Dehydrogenase (313-618) U/L Total Protein (6.3-8.2) g/dL Albumin (3.5-5.0) g/dL Assessment and Plan Plan: Assessment: 1 acute COVID 19 related pneumonia with secondary respiratory failure. The pat ient started developing symptoms on 06/17/2020 with chest x-ray showing diffuse but the pulmonary infiltrates and sooner findings were also seen on the CT angiogram. The patient is currently in the intensive care unit on a BiPAP at a pressure of 14/10 with an FiO2 of 100%. She remains on Precedex. She remains on morphine to be given a stat basis to control her breathlessness and agitation and anxiety. Inflammatory markers including LDH is dropping, CRP is dropping, d-dimer remains elevated. Today on 07/01/2020 is down to 15 L per high flow nasal cannula and her pulse ox is between 93-94% 2 acute hypoxic respiratory failure secondary to above, improving 3 elevated inflammatory markers secondary to above, d-dimer is elevated. Improving 4 fever and constitutional symptoms secondary to above, improving 5 hypertension 6 previous history of substance abuse plan: Patient is doing well Clinical stable, FiO2 is down to 15 L per high flow nasal cannula, and patient is maintaining O2 saturations above 90% Decrease Lovenox to 40 mg once daily Decrease IV Decadron to 6 mg once daily IV fluids to KVO Catapres 0.1 mg by mouth 3 times a day Discontinue Cleviprex infusion Provide incentive spirometer patient is tolerating oral intake, Stable for transfer out of intensive care unit to general medical floor today I performed a history & physical examination of the patient and discussed their management with my nurse practitioner, Keily Calhoun. I reviewed the nurse practitioner's note and agree with the documented findings and plan of care. Lung sounds are positive for bibasilar crackles. The findings and the impression was discussed with the patient. I attest to the documentation by the nurse practitioner. Time with Patient: Greater than 30
[2020-07-01 11:54] LABS: Glucose,Whole Blood 229 mg/dL (75-99)
[2020-07-01 17:20] LABS: Glucose,Whole Blood 122 mg/dL (75-99)
--- NOTE | 2020-07-01 18:20 | PN ---
PROGRESS NOTE Currently the patient is FULL CODE as well as her data indicating that she is a 5 foot 3 inches, Her weight 83.9 kg, BSA 1.87 m2 and BMI of 32.8 kg/m2. Allergy is unknown. The patient seen and evaluated in the ICU and subsequently transferred to Med/surg floor after the in the ICU for few days and taking care by the Critical Care Team, Dr. Ndiaye, Dr. Justice, Dr. Estrada. The patient is seen in ICU. She is able to sit on the chair, able to breathe with oxygen and able to eat her lunch time. The patient subsequently transferred to [facility], bed 1 in Med/Surg area and per Dr. Justice. On the examination, the patient was conscious, alert, able to communicate freely. Her temperature 97.2 oral and her heart rate was 110 and as mentioned, blood pressure fluctuating between 132/97 and her oxygen has been gradually improving. She had mild tachypnea. LABORATORY: Today, she had history of last laboratory done on 07/01/2020 and her current WBC was noted increasing with the WBC to 24.6, and with the neutrophil 21.8 and hemoglobin is 11.1. Her platelet count is normal 213. 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 Her carbon dioxide 22, and BUN and creatinine is normal with the estimated glomerular filtration rate for more than 90. Her glucose was 89 and the glucose POC was fluctuating depend on the eating. Her calcium 5.3, however, ionized calcium 4.7. She had mild elevated liver enzyme, transaminases with AST 50 and ALT 135, and the alkaline phosphatase was 74, normal. Her LDH as a marker has been gradually improving. Currently 1391. C-reactive protein now 0.6, which is normal and the protein calorie deficiency with the underlying not eating for a week or more and her total protein is 4 and the albumin 1.9. Her blood pressure also was fluctuating however 144/96 and 153/91. PHYSICAL EXAMINATION: The patient is seen in ICU room 261. She was sitting on the chair and able to go to the bathroom and able to eat her lunch. She felt much better and Critical Care, Dr. Justice decided to transfer her to the floor. On exam of HEAD: Normocephalic, atraumatic. The pupils equal, reactive and oropharynx natural teeth. NECK was supple and no JVD. The Chest was clear to auscultation and percussion. The HEART was regular sinus rhythm and the hypertension currently controlled. Her tachycardia is associated with the pulmonary disease and she has started on the medication 3 days ago and she is gradually coming down. Her anxiety is much controllable currently with the current medication. EXTREMITIES: No edema. Able to ambulate with physical therapy. ASSESSMENT: 1. Covid-19 pneumonia. 2. Acute hypoxemic respiratory failure. 3. Diabetes mellitus, covered with insulin to scale. 4. Hypertension with hypertensive heart disease. 5. Electrolytes imbalance and has been supplemented. A marker has been reviewed and is coming down. PLAN: As patient transferred to the floor, we will continue monitoring her markers and continue the treatment and monitor and we will probably 1-2 days. If the patient continues to improve and we have clearance from the Pulmonary and Critical, the patient will be discharged home. Her vaccination in the future will be 90 days from the discharge and still going to be on isolation for at least 2 weeks. MMODL / IJN: [id number] /
[2020-07-01 20:32] LABS: Glucose,Whole Blood 113 mg/dL (75-99)
[2020-07-01] MEDS: ACETAMINOPHEN TAB 325 MG TAB PO PRN (20:59)
[2020-07-01] MEDS: guaiFENesin-Coden 100-10MG/5ML 10 ML CUP PO PRN (21:00)
[2020-07-02 07:03] LABS: Glucose,Whole Blood 109 mg/dL (75-99)
[2020-07-02] MEDS: INSULIN ASPART (NovoLOG) 100 UNIT/ML VIAL SQ SCH ×4 (08:56→23:29)
[2020-07-02] MEDS: LISINOPRIL-HCTZ 20-12.5 MG 1 EACH TAB PO SCH (09:06)
[2020-07-02] MEDS: CHOLECALCIFEROL 25 MCG (1000 IU) TABLET PO SCH (09:06)
[2020-07-02] MEDS: ZINC SULFATE 220 MG CAP PO SCH (09:06)
[2020-07-02] MEDS: DEXAMETHASONE SOD PHOSPHATE 10 MG/ML 1 ML VIAL IV SCH (09:06)
[2020-07-02] MEDS: amLODIPine 10 MG TAB PO SCH (09:06)
[2020-07-02] MEDS: FAMOTIDINE 20 MG TAB PO SCH ×2 (09:07→23:29)
[2020-07-02] MEDS: ENOXAPARIN 40 MG/0.4 ML SYRINGE SQ SCH (09:07)
[2020-07-02] MEDS: METOPROLOL SUCCINATE (ER) 50 MG TAB.ER.24H PO SCH (09:07)
[2020-07-02] MEDS: ASCORBIC ACID 500 MG TAB PO SCH (09:07)
[2020-07-02] MEDS: cloNIDine HCL 0.1 MG TAB PO SCH ×3 (09:07→23:29)
[2020-07-02] MEDS: ACETAMINOPHEN TAB 325 MG TAB PO PRN (09:10)
[2020-07-02 10:52] LABS: HCT 42.3 % (37.2-46.3); HGB 13.2 g/dL (12.0-15.0); MCH 26.1 pg (27.0-32.0); MCHC 31.2 g/dL (32.0-37.0); MCV 83.6 fL (80.0-97.0); Mean Platelet Volume 10.2 fL (9.5-12.2); Platelet Count 239 X 10*3/uL (140-440); RBC 5.06 X 10*6/uL (4.10-5.20); RDW 16.5 % (11.5-14.5); WBC 31.36 X 10*3/uL (4.50-10.00)
[2020-07-02 11:41] LABS: Basophils # (A) 0.09 X 10*3/uL (0.00-0.10); Basophils % (A) 0.3 %; Eosinophils # (A) 0.12 X 10*3/uL (0.04-0.35); Eosinophils % (A) 0.4 %; Lymphocytes # (A) 5.27 X 10*3/uL (0.90-5.00); Lymphocytes % (A) 16.8 %; Monocytes # (A) 1.25 X 10*3/uL (0.20-1.00); Neutrophils # (A) 23.73 X 10*3/uL (1.80-7.70); Neutrophils % (A) 75.6 %
[2020-07-02 11:50] LABS: Glucose,Whole Blood 144 mg/dL (75-99)
[2020-07-02 12:46] LABS: ALT 191 U/L (8-44); AST 50 U/L (13-35); African American GFR (CKD) 99.6 (60.0-200.0); Albumin/Globulin Ratio 1.83 (1.60-3.17); Alkaline Phosphatase 117 U/L (41-126); BUN/Creat Ratio 33.75 Ratio (12.00-20.00); C Reactive Protein <0.4 mg/dL (0.0-0.8); Calcium 9.4 mg/dL (8.7-10.3); Carbon Dioxide 27.6 mmol/L (21.6-31.8); Chloride 101 mmol/L (96-109); Globulin 2.4 g/dL (1.6-3.3); Glucose 167 mg/dL (70-110); LDH 746 U/L (120-246); Phosphorus 4.7 mg/dL (2.4-5.1); Potassium 3.5 mmol/L (3.5-5.5); Sodium 142 mmol/L (135-145); Total Bilirubin 0.6 mg/dL (0.3-1.2); Total Protein 6.8 g/dL (6.2-8.2)
[2020-07-02 14:25] VITALS: BMI 32.8
[2020-07-02] MEDS ORDERED: Potassium Replacement Protocol 1 EACH MISC MISCELLANE PRN (15:26)
[2020-07-02] MEDS: POTASSIUM CHLORIDE ER 20 MEQ TAB.ER PO SCH ×2 (15:49→17:28)
--- NOTE | 2020-07-02 16:43 | P.PN ---
Subjective Progress Note Date: 07/02/20 dictation progress note, date of service 07/02/[address] Jones. Patient seen and evaluated [id number] Patient transferred from ICU yesterday afternoon. She is currently on oxygen 9 later. Patient is conscious alert oriented 3 she has a nasal cannula she understand the oxygen parameter and when we see improvement with the titration of the oxygen to 5 or 4 L then patient will be able to go home. I did sign also oxygen therapy that she will be applied to her when she gets to be discharged. On examination: Patient conscious alert oriented 3. No neurological deficit. Also she had mild hoarseness of voice. The head was normocephalic and atraumatic and the pupil was equal reactive conjunctiva was pink sclera was nonicteric extraocular muscle movement intact. Oropharynx negative able to eat and swallow without dysphagia. Neck was supple no JVD no thyromegaly no lymphadenopathy trachea midline. Chest: Still bilateral rhonchi with deep inspiration the basis of the lung still not well ventilated. The heart was regular sinus rhythm.and the blood pressure 124/88, her heart oxygen saturation 95% on 9 Temperature 97.8 F oral, respirations 18/m and pulse rate 93. Abdomen is soft positive bowel sounds and no tenderness in the 4 quadrants Extremities no edema and positive pulses. Neurologically stable able to walk and go to the bathroom. Laboratories: Her WBC 31.36 with leukocytosis with her recovery., Hemoglobin and hematocrit, 13.2/42.3 Chemistry sodium 142 potassium 3.5 chloride 101 carbon dioxide 27.6 BUN 27 creatinine 0.8 the estimated glomerular filtration rate for -Citizen Of The [place] she is 99.6 Is by mouth C glucose monitored stable with diabetes mellitus covered with insulin. Abnormal liver enzyme with AST 50 and a LT 191 with the LDH 746 significant dropping , C-reactive protein less than 0.4 , d-dimer 3.55. assessment: #1 status post Covid19 pneumonia related. #2 acute hypoxic respiratory failure #3 the marker has been gradually improving #4 her oxygenation still not in the level to be clear and currently they monitor his oxygen saturation with the flow of oxygen. Plan continue monitoring diabetes mellitus and colored with insulin, and blood pressure, and her oxygenation and the ability to [place]. Discussed with the patient and she understands Objective - Vital Signs Vital signs: Vital Signs Temp 97.8 F 07/02/20 09:17 Pulse 93 07/02/20 09:17 Resp 18 07/02/20 09:17 BP 124/88 07/02/20 09:17 Pulse Ox 95 07/02/20 09:17 Intake & Output 07/01/20 07/02/20 07/02/20 18:59 06:59 18:59 Intake Total 220 240 Output Total 310 Balance -90 240 Weight 83.9 kg Intake: IV 220 Potassium Chloride 10 meq 100 In Water For Injection 1 100ml.bag @ 100 mls/hr IVPB Q1HR JAILYN Rx#: [id number] Sodium Chloride 0.9% 1, 120 000 ml @ 20 mls/hr IV . Q24H JAILYN Rx#:[id number] Oral 240 Output: Urine 310 Other: Voiding Method Toilet Toilet # Voids 3 # Bowel Movements 1 - Labs CBC & Chem 7: 07/02/20 07:05 07/02/20 07:05 Labs: Abnormal Lab Results - Last 24 Hours (Table) 07/01/20 07/01/20 07/02/20 Range/Units 17:07 20:30 07:01 WBC (4.50-10.00) X 10*3/uL MCH (27.0-32.0) pg MCHC (32.0-37.0) g/dL RDW (11.5-14.5) % Absolute Nucleated RBC (0.00-0.00) X 10*3/uL Immature Gran # (0.00-0.04) X 10*3/uL Neutrophils # (1.80-7.70) X 10*3/uL Lymphocytes # (0.90-5.00) X 10*3/uL Monocytes # (0.20-1.00) X 10*3/uL NRBC/100 WBC Diff (0.0-0.0) /100 WBCS D-Dimer (<0.60) mg/L FEU Anion Gap (4.00-12.00) mmol/L BUN/Creatinine Ratio (12.00-20.00) Ratio Glucose (70-110) mg/dL POC Glucose (mg/dL) 122 H 113 H 109 H (75-99) mg/dL AST (13-35) U/L ALT (8-44) U/L Lactate Dehydrogenase (120-246) U/L 07/02/20 07/02/20 07/02/20 Range/Units 07:05 07:05 07:05 WBC 31.36 H (4.50-10.00) X 10*3/uL MCH 26.1 L (27.0-32.0) pg MCHC 31.2 L (32.0-37.0) g/dL RDW 16.5 H (11.5-14.5) % Absolute Nucleated RBC 0.11 H (0.00-0.00) X 10*3/uL Immature Gran # 0.90 H (0.00-0.04) X 10*3/uL Neutrophils # 23.73 H (1.80-7.70) X 10*3/uL Lymphocytes # 5.27 H (0.90-5.00) X 10*3/uL Monocytes # 1.25 H (0.20-1.00) X 10*3/uL NRBC/100 WBC Diff 0.4 H (0.0-0.0) /100 WBCS D-Dimer 3.55 H (<0.60) mg/L FEU Anion Gap 13.40 H (4.00-12.00) mmol/L BUN/Creatinine Ratio 33.75 H (12.00-20.00) Ratio Glucose 167 H (70-110) mg/dL POC Glucose (mg/dL) (75-99) mg/dL AST 50 H (13-35) U/L ALT 191 H (8-44) U/L Lactate Dehydrogenase 746 H (120-246) U/L 07/02/20 Range/Units 11:48 WBC (4.50-10.00) X 10*3/uL MCH (27.0-32.0) pg MCHC (32.0-37.0) g/dL RDW (11.5-14.5) % Absolute Nucleated RBC (0.00-0.00) X 10*3/uL Immature Gran # (0.00-0.04) X 10*3/uL Neutrophils # (1.80-7.70) X 10*3/uL Lymphocytes # (0.90-5.00) X 10*3/uL Monocytes # (0.20-1.00) X 10*3/uL NRBC/100 WBC Diff (0.0-0.0) /100 WBCS D-Dimer (<0.60) mg/L FEU Anion Gap (4.00-12.00) mmol/L BUN/Creatinine Ratio (12.00-20.00) Ratio Glucose (70-110) mg/dL POC Glucose (mg/dL) 144 H (75-99) mg/dL AST (13-35) U/L ALT (8-44) U/L Lactate Dehydrogenase (120-246) U/L
--- NOTE | 2020-07-02 17:02 | P.PN ---
Subjective Progress Note Date: 07/02/20 49 yo female patient hospitalized for COVID 19 pneumonia. The patient presented to the hospital because of worsening shortness of breath. Patient had nonproductive cough and fever and chills and myalgia. The patient is currently on oxygen at 15 L high flow. Initially she was on 6 L and she was brought up to 15 L. The chest x-ray is showing diffuse bilateral pulmonary infiltrates consistent with pneumonia. The CAT scan of the chest also showed diffuse bilateral groundglass pulmonary infiltrates both in the upper and lower lobes and the infiltrates are quite extensive at this point in time. The patient has no pulmonary embolism. As for the blood work, the patient has a d-dimer 1.37, the LDH was 3282 and the CRP level is at 83. The patient was given Decadron 6 mg IV. The patient will be placed on Lovenox. The patient will be admitted to the medical floor. The patient symptoms started approximately 6 days ago and since then the patient gradually On 06/24/2020, the patient is transferred to the intensive care unit. This transplant occurred early this morning. I saw this patient in intensive care unit this morning. Nevertheless, yesterday she was in the emergency. At a time of my arrival, the patient was desaturating and I put her on high flow oxygen at 6 L with an FiO2 of 100%. Overnight, the patient became more tachypneic and hypoxic. Based on that, the patient got transferred to the intensive care unit and the patient was placed on BiPAP which is currently at a pressure of 12/5 cm of water and FiO2 of 100%. She is currently generating a volume of 450 mL and her respiratory rate is quite high in the low 40s. As such, the patient carries a very high minute ventilation. In terms of her Covid 19 pneumonia, started on Decadron 6 mg IV every 24 hours. The patient was also given Tocilizumab yesterday without any major side effects or toxicities. She remains h emodynamically stable. She is producing adequate amount of urine output. She was a bit anxious yesterday and restless and she was given morphine and Xanax which calmed her down considerably. In terms of her blood work, the blood work is still pending. The chest x-ray is also pending for now. She has improved considerably with morphine which took some of her restlessness and agitation away. She remains on Decadron. She remains on Lovenox 40 mg subcu every 24 hours. On 06/25/2020, the patient remains on a BiPAP at a pressure of 14/10 with an FiO2 of 100. She obviously decompensated yesterday. She got transferred to the intensive care unit. She was placed in a foam body positioning while in the BiPAP and she was able to tolerate that. Total of 3 hours. This obviously help with her oxygenation. Her current pulse ox is in the mid 80s. She was progressing and the patient was placed on Decadron and combination with Tocilizumab and the patient is also on anticoagulation with Lovenox. She is slightly more stable compared to yesterday. She is currently in a supine body position. She is on the same BiPAP setting. D-dimer is at 1.28 and the rest of the inflammatory markers show a LDH of 3894 and the CRP of 17.4. The chest x- ray from today is showing diffuse bilateral pulmonary infiltrates consistent with Covid 19 related pneumonia. The chest x-ray findings probably are looking slightly better compared to yesterday. Otherwise, she is receiving IV fluids of normal saline at the rate of 100 mL an hour. She is producing adequate amount of urine output. No fever. She is less anxious while being on Precedex which is currently running at 0.5 mcg/kg per minute. No hemodynamic changes. No bradycardia. No agitation. No restlessness pH is able to communicate fairly well while being on a BiPAP. 06/26/2020, the patient is being seen for a follow-up. She is BiPAP dependent and she remains on a BiPAP at a pressure of 14/10 with an FiO2 of 95%. The incision same sitting exacerbates with some limited improvement in oxygenation and limited And FiO2. Current pulse ox is 94%. She managed to go in a prone body positioning for several hours yesterday and currently she is back supine and she's sleeping on her left side for now. She is quite comfortable at this point in time. She is awake and communicating. She is becoming progressively more weak and debilitated. She is also anxious. Repeat chest x-ray was done today and the findings are essentially stable compared to yesterday.. The patient remains on IV Decadron. She received Tocilizumab and she also received convalescent plasma. She is on Lovenox also for anticoagulation. In terms of her markers, the d-dimer currently is at 8.87 and the LDH level is currently at 3864 and the CRP is at 11.2. She is still on Precedex which is running at 0.7 mcg/kg per minute. Oral intake is minimal as the patient is strictly BiPAP dependent and she desaturates once off the BiPAP. IV fluids are running at the rate of 100 mL an hour of normal saline. Or 2020, the patient is transitioned to a high flow oxygen and currently she is on 60 L with an FiO2 of 90%. She is able to maintain a pulse ox of 95%. Note that she was on BiPAP for 3 days in ago and she was doing very well on the BiPAP and she was doing prone body positioning periodically. This morning, she got transitioned to high flow oxygen. She is doing slightly better. She is less short of breath. Her current pulse ox is 94%. Rest of the hemodynamics are all stable. The patient is still tachypneic and she is unable to complete full sentences. She has short of breath. However, the fact that she is off the BiPAP is a big step for her and she states that her breathing is improved compared to yesterday. The patient's chest x-ray showing diffuse interstitial infiltrates bilaterally left more than right, unchanged compared to yesterday. Her d-dimer is elevated at 12.3. LDH level is at 3149 improved and his CRP level is at 7.4, improved. The patient is on Lovenox 40 mg subcu every 24 hours. The patient is also on Decadron 6 mg IV every 24 hours. She is still on Precedex at a dose of 0.7 mcg/kg per minute. She is also on several practitioners running at 2 mg an hour for blood pressure control. She remains on metoprolol 25 mg by mouth daily. Cozaar was replaced with Zestoretic 20/12.5 one tablet a day. Will be given some limited amount of soft or clear liquid diet today now that she is on high flow oxygen in conjunction with the percent nonrebreather facemask. 06/28/2020, the patient is back on BiPAP. She was transitioned to high flow oxygen yesterday at 60 L with an FiO2 of 90%. She was given for a total of 6 hours yesterday and following that she was switched back on a BiPAP and the current pressures are 14/10 with an FiO2 of other percent. She is quite comfortable currently. Earlier this morning, she was getting worked up and she was tachypneic and she was desaturating. She was given morphine which helped her quite a bit. She is on Precedex which is running at 0.7 mcg/kg per minute. The patient is d-dimer is up to 4.3, the LDH level is down trending is down to 2797 with a CRP of 0.8. The chest x-ray is showing diffuse bilateral groundglass pulmonary infiltrates, unchanged compared to yesterday. He is hemodynamically stable. In terms of blood pressure control, she is on Catapres at 4 mg an hour. She is also taking oral antihypertensive medication and she is currently on Norvasc 5 mg by mouth daily, lisinopril hydrochlorothiazide 20/12.5 one tab today and she is also on metoprolol XL 25 mg by mouth daily. We'll make the necessary adjustments on the blood pressure medications to wean off the Celebrex drip. Her oral intake is minimal. She is quite weak. She is alert and awake and she is communicating. She remains highly anxious. 06/29/2020 patient seen in follow-up in the intensive care unit, overnight patient was maintained on BiPAP, this morning he is on Airvo at 60 L/m and FiO2 of 100%, her pulse ox is 87-92%, patient seems comfortable, no acute distress was noted, she was able to eat half of her breakfast tray, her BiPAP settings were 14/10 with FiO2 of 100%, her inflammatory markers are downtrending on today's labs, LDH his 2602, CRP is 0.7, and a d-dimer still elevated but is showing a trend down, to 11.4. No new chest x-ray from today, yesterday chest x-ray showed stable findings with diffuse "groundglass opacities bilaterally without significant change, overall clinically she seems to be improving, and he is tolerating trials off the BiPAP support and on high flow oxygen in addition to nonrebreather mask, no complaints of chest discomfort, her cough has subsided, she is able to take deeper breaths, lung sounds reveal bibasilar [place], she is awake and alert, no altered mentation, she is moving all 4 extremities, optimistic about her recovery On 06/30/2000 patient seen in follow-up in the intensive care unit, she is alert, in no acute distress, her Airvo earlier was at 60 L and FiO2 of 80%, she had since been switched to high flow nasal cannula at 15 L in addition to 100% nonrebreather, she seems to be much more comfortable on that oxygen set up, her pulse ox is 93-96%, no worsening dyspnea, she is awake alert, oriented 3, she is sitting up in bed, no cough, she is afebrile, vital signs are stable, she is currently on 0.9 normal saline at a rate of 100 ML per hour, her appetite is fair, she's been tolerating oral intake. Today's chest x-ray has been reviewed, showing persistent bilateral diffuse groundglass opacities with infiltrates that are becoming a bit more confluent in the lower lungs. Today's labs show white blood cell count of 22.7, and this is increased from yesterday's labs, from 17, today's hemoglobin is 11.9, platelet count is 200, d-dimer of 7.76, downtrending, sodium is 135, potassium is 3.5, chloride is 98, CO2 is 21, BUN of 16, creatinine 0.50, her liver enzymes show AST of 99, relatively stable, ALT has trended up, up to 163, alkaline phosphatase is 151, improving, LDH on today's lab is 2578, improving, and the CRP is less than 0.5. In terms of therapy she remains on Decadron 6 mg twice daily IV push, and she is on Lovenox 40 mg subcu twice a day, Loprox drip has been weaned off, and patient was resumed on her home medications in the form of Zestoretic, 2012 0.5, she is on Toprol-XL 25 mg daily, and she is on Norvasc 10 mg daily. Her blood pressures are better controlled ranging from 1:30 to 150 systolic, and diastolic in the 90s, and the map of 111. On 07/01/2020 patient seen in follow-up in the intensive care unit, she is awake alert and oriented 3, she is currently sitting in the recliner, she is on 15 L per hypopneas cannula pulse ox is 94%, she is breathing comfortably, blood pressures running in the 160 to 170s systolic on 90s to low 100s diastolic, she's been afebrile, she is in sinus mechanism, she's had no acute events overnight, no worsening dyspnea, no cough, no chest discomfort, no new chest x- ray today, today's labs have been reviewed and d-dimer is improving and is down to 2.02, sodium is 140, potassium is 2.1 dyspnea and replacement of the vertic al, chloride is 118, BUN is 10, creatinine 0.24, calcium level is 5.3, AST is improving, down to 50, ALT is down to 135 from 163 on yesterday's labs, and alk phos is within normal limits, LDH is down to 1391, CRP is 0.6. She is tolerating oral intake, no nausea vomiting or diarrhea, in terms of therapy she remains on Decadron 6 g twice daily she is on Lovenox 40 mg twice daily and IV fluids at 50 ML per hour. On 07/02/2020 patient seen in follow-up on medical surgical floor, she looks very comfortable, she is sitting up in bed, she states she is feeling much better, breathing much easier, she is currently on 10 L of oxygen, and her pulse ox is 95%, however an attempt to wean it down to 8 L was unsuccessful, as the patient desaturated to 85%, and he was subsequently increased back up to 10 L, however breathing-rea she is quite comfortable, sounds are diminished, no significant crackles, no wheezes, she is afebrile, vital signs have been stable overnight, no new chest x-ray today. Today's labs have been reviewed showing increased white blood cell count up to 31.36, hemoglobin is 13.2, d-dimer is 3.55 on today's labs, sodium is 142, potassium 3.5, chloride is 101, BUN of 27 creatinine 0.8. Her inflammatory markers are improving, LDH is down to 746, and CRP is less than 0.4 on today's labs, she remains on daily dose of IV dexamethasone Objective - Vital Signs Vital signs: Vital Signs Temp 97.8 F 07/02/20 09:17 Pulse 93 07/02/20 09:17 Resp 18 07/02/20 09:17 BP 124/88 07/02/20 09:17 Pulse Ox 95 04/21/21 09:17 Intake & Output 07/01/20 07/02/20 07/02/20 18:59 06:59 18:59 Intake Total 220 240 Output Total 310 Balance -90 240 Weight 83.9 kg Intake: IV 220 Potassium Chloride 10 meq 100 In Water For Injection 1 100ml.bag @ 100 mls/hr IVPB Q1HR JAIL[facility] Rx#: [id number] Sodium Chloride 0.9% 1, 120 000 ml @ 20 mls/hr IV . Q24H JAILYN Rx#:[id number] Oral 240 Output: Urine 310 Other: Voiding Method Toilet Toilet # Voids 3 # Bowel Movements 1 - Exam GENERAL EXAM: Alert, very pleasant, 49-year-old can female on 10 L per high flow nasal cannula with pulse ox of 94%, breathing comfortably, sitting up in the recliner, comfortable in no apparent distress. HEAD: Normocephalic/atraumatic. EYES: Normal reaction of pupils, equal size. Conjunctiva pink, sclera white. NOSE: Clear with pink turbinates. THROAT: No erythema or exudates. NECK: No masses, no JVD, no thyroid enlargement, no adenopathy. CHEST: No chest wall deformity. Symmetrical expansion. LUNGS: Equal air entry with minimal bibasilar crackles CVS: Regular rate and rhythm, normal S1 and S2, no gallops, no murmurs, no rubs ABDOMEN: Soft, nontender. No hepatosplenomegaly, normal bowel sounds, no guarding or rigidity. EXTREMITIES: No clubbing, no edema, no cyanosis, 2+ pulses and upper and lower extremities. MUSCULOSKELETAL: Muscle strength and tone normal. SPINE: No scoliosis or deformity SKIN: No rashes CENTRAL NERVOUS SYSTEM: Alert and oriented -3. No focal deficits, tone is normal in all 4 extremities. PSYCHIATRIC: Alert and oriented -3. Appropriate affect. Intact judgment and insight. - Labs CBC & Chem 7: 07/02/20 07:05 07/02/20 07:05 Labs: Abnormal Lab Results - Last 24 Hours (Table) 07/01/20 07/01/20 07/02/20 Range/Units 17:07 20:30 07:01 WBC (4.50-10.00) X 10*3/uL MCH (27.0-32.0) pg MCHC (32.0-37.0) g/dL RDW (11.5-14.5) % Absolute Nucleated RBC (0.00-0.00) X 10*3/uL Immature Gran # (0.00-0.04) X 10*3/uL Neutrophils # (1.80-7.70) X 10*3/uL Lymphocytes # (0.90-5.00) X 10*3/uL Monocytes # (0.20-1.00) X 10*3/uL NRBC/100 WBC Diff (0.0-0.0) /100 WBCS D-Dimer (<0.60) mg/L FEU Anion Gap (4.00-12.00) mmol/L BUN/Creatinine Ratio (12.00-20.00) Ratio Glucose (70-110) mg/dL POC Glucose (mg/dL) 122 H 113 H 109 H (75-99) mg/dL AST (13-35) U/L ALT (8-44) U/L Lactate Dehydrogenase (120-246) U/L 07/02/20 07/02/20 07/02/20 Range/Units 07:05 07:05 07:05 WBC 31.36 H (4.50-10.00) X 10*3/uL MCH 26.1 L (27.0-32.0) pg MCHC 31.2 L (32.0-37.0) g/dL RDW 16.5 H (11.5-14.5) % Absolute Nucleated RBC 0.11 H (0.00-0.00) X 10*3/uL Immature Gran # 0.90 H (0.00-0.04) X 10*3/uL Neutrophils # 23.73 H (1.80-7.70) X 10*3/uL Lymphocytes # 5.27 H (0.90-5.00) X 10*3/uL Monocytes # 1.25 H (0.20-1.00) X 10*3/uL NRBC/100 WBC Diff 0.4 H (0.0-0.0) /100 WBCS D-Dimer 3.55 H (<0.60) mg/L FEU Anion Gap 13.40 H (4.00-12.00) mmol/L BUN/Creatinine Ratio 33.75 H (12.00-20.00) Ratio Glucose 167 H (70-110) mg/dL POC Glucose (mg/dL) (75-99) mg/dL AST 50 H (13-35) U/L ALT 191 H (8-44) U/L Lactate Dehydrogenase 746 H (120-246) U/L 07/02/20 Range/Units 11:48 WBC (4.50-10.00) X 10*3/uL MCH (27.0-32.0) pg MCHC (32.0-37.0) g/dL RDW (11.5-14.5) % Absolute Nucleated RBC (0.00-0.00) X 10*3/uL Immature Gran # (0.00-0.04) X 10*3/uL Neutrophils # (1.80-7.70) X 10*3/uL Lymphocytes # (0.90-5.00) X 10*3/uL Monocytes # (0.20-1.00) X 10*3/uL NRBC/100 WBC Diff (0.0-0.0) /100 WBCS D-Dimer (<0.60) mg/L FEU Anion Gap (4.00-12.00) mmol/L BUN/Creatinine Ratio (12.00-20.00) Ratio Glucose (70-110) mg/dL POC Glucose (mg/dL) 144 H (75-99) mg/dL AST (13-35) U/L ALT (8-44) U/L Lactate Dehydrogenase (120-246) U/L Assessment and Plan Plan: Assessment: 1 acute COVID 19 related pneumonia with secondary respiratory failure. The patient started developing symptoms on 06/17/2020 with chest x-ray showing diffuse but the pulmonary infiltrates and sooner findings were also seen on the CT angiogram. The patient is currently in the intensive care unit on a BiPAP at a pressure of 14/10 with an FiO2 of 100%. She remains on Precedex. She remains on morphine to be given a stat basis to control her breathlessness and agitation and anxiety. Inflammatory markers including LDH is dropping, CRP is dropping, d-dimer remains elevated. Today on 07/01/2020 is down to 15 L per high flow nasal cannula and her pulse ox is between 93-94% 2 acute hypoxic respiratory failure secondary to above, improving 3 elevated inflammatory markers secondary to above, d-dimer is elevated. Improving 4 fever and constitutional symptoms secondary to above, improving 5 hypertension 6 previous history of substance abuse plan: FiO2 is down to 10 L, and will continue weaning this to maintain O2 saturation between 89-90% as long as patient is asymptomatic Clinically patient continues to improve, and she has done remarkably well considering her degree of hypoxia related to COVID-19 pneumonia We'll obtain a follow-up basic labs, she is afebrile, but white count is noted to be trending up Send a procalcitonin level Continue current dose Lovenox and Decadron IV fluids to KVO Provide incentive spirometer patient is tolerating oral intake, We'll continue to closely follow I performed a history & physical examination of the patient and discussed their management with my nurse practitioner, Keily Calhoun. I reviewed the nurse practitioner's note and agree with the documented findings and plan of care. Lung sounds are positive for bibasilar crackles. The findings and the impression was discussed with the patient. I attest to the documentation by the nurse practitioner. Time with Patient: Less than 30
[2020-07-02 17:16] LABS: Glucose,Whole Blood 134 mg/dL (75-99)
[2020-07-02 21:05] LABS: Glucose,Whole Blood 136 mg/dL (75-99)
[2020-07-03] MEDS: INSULIN ASPART (NovoLOG) 100 UNIT/ML VIAL SQ SCH ×4 (07:03→20:30)
[2020-07-03 07:04] LABS: Glucose,Whole Blood 126 mg/dL (75-99)
[2020-07-03] MEDS: ASCORBIC ACID 500 MG TAB PO SCH (07:52)
[2020-07-03] MEDS: ZINC SULFATE 220 MG CAP PO SCH (07:52)
[2020-07-03] MEDS: METOPROLOL SUCCINATE (ER) 50 MG TAB.ER.24H PO SCH (07:53)
[2020-07-03] MEDS: cloNIDine HCL 0.1 MG TAB PO SCH ×3 (07:53→20:40)
[2020-07-03] MEDS: FAMOTIDINE 20 MG TAB PO SCH ×2 (07:53→20:41)
[2020-07-03] MEDS: CHOLECALCIFEROL 25 MCG (1000 IU) TABLET PO SCH (07:53)
[2020-07-03] MEDS: amLODIPine 10 MG TAB PO SCH (07:53)
[2020-07-03] MEDS: DEXAMETHASONE SOD PHOSPHATE 10 MG/ML 1 ML VIAL IV SCH (07:53)
[2020-07-03] MEDS: LISINOPRIL-HCTZ 20-12.5 MG 1 EACH TAB PO SCH (07:54)
[2020-07-03] MEDS: POTASSIUM CHLORIDE ER 20 MEQ TAB.ER PO SCH (07:54)
[2020-07-03] MEDS: ENOXAPARIN 40 MG/0.4 ML SYRINGE SQ SCH (07:54)
[2020-07-03 11:06] LABS: HCT 42.7 % (37.2-46.3); MCH 25.9 pg (27.0-32.0); MCHC 30.4 g/dL (32.0-37.0); MCV 85.1 fL (80.0-97.0); Mean Platelet Volume 10.3 fL (9.5-12.2); Platelet Count 239 X 10*3/uL (140-440); RBC 5.02 X 10*6/uL (4.10-5.20); RDW 16.3 % (11.5-14.5)
[2020-07-03 11:28] LABS: Glucose,Whole Blood 180 mg/dL (75-99)
[2020-07-03 12:10] LABS: Basophils # (A) 0.06 X 10*3/uL (0.00-0.10); Basophils % (A) 0.2 %; Eosinophils # (A) 0.14 X 10*3/uL (0.04-0.35); Eosinophils % (A) 0.5 %; Lymphocytes # (A) 5.25 X 10*3/uL (0.90-5.00); Lymphocytes % (A) 18.7 %; Monocytes # (A) 1.17 X 10*3/uL (0.20-1.00); Monocytes % (A) 4.2 %; Neutrophils # (A) 21.05 X 10*3/uL (1.80-7.70); Neutrophils % (A) 74.9 %
--- NOTE | 2020-07-03 13:21 | P.PN ---
Subjective Progress Note Date: 07/03/20 (need supplementation with oxygen currently 7 L/m) .progress note date of service 07/03/[address] Jones. Patient seen and evaluated [id number] and she feeling much better however her oxygen saturation and the need for 7 L/m and still the lung staff. She had laboratory Her white count 28.10 and hemoglobin 13 and hematocrit 42.7 and her platelet count is adequate. She had also monitored and her d-dimer now 2.78 today on 07/03 20. Her still the she had the the oxygen 7 L/m. Her POC glucose has been fluctuating however is average of 126-136. And she has as well the d-dimer 2.78 still elevated but much improvementthere is no lab result on CPR or LDH. We'll continue the current treatment and still continue titrate the oxygen supplement. Physical examination [id number] Her temperature 98.3 and 98 subsequently heart rate is 84-95-105 and respiratory rate ranging between 2020 5/m and her blood pressure was 118/76 and 111/75 and her saturation is 93 patient has 6 and later however when I checked it it is 7 L. And the gradual titration. On the physical exam Patient's conscious alert oriented 3 is she able to walk on-call go to the bathroom able to eat and swallow without abnormality she has no neurological deficit and still have cough mild. Her HEENT the head was normocephalic and atraumatic oropharynx was negative years is negative with the hearing normal. The neck was supple no JVD no thyromegaly no lymphadenopathy trachea midline. The chest is intact gradual improvement of the bilateral rhonchi's and no wheezes at this time heart was regular sinus rhythm and occasionally tachycardic but currently is stable and the patient had regular BM and no abdominal pain extremities no edema and positive pulses in the Assessment patient is gradual improvement and the will send home when her saturation is improved after clearance from the pulmonary and critical care. Plan continue the current current treatment Objective - Vital Signs Vital signs: Vital Signs Temp 98.0 F 07/03/20 10:00 Pulse 105 H 07/03/20 10:00 Resp 25 H 07/03/20 10:00 BP 111/75 07/03/20 10:00 Pulse Ox 94 L 07/03/20 12:55 Intake & Output 07/02/20 07/03/2007/03/21 18:59 06:59 18:59 Intake Total 240 Balance 240 Weight 83.9 kg Intake: Oral 240 Other: Voiding Method Toilet Toilet # Voids 3 - Labs CBC & Chem 7: 07/03/20 06:57 07/02/20 07:05 Labs: Abnormal Lab Results - Last 24 Hours (Table) 07/02/20 07/02/20 07/02/20 Range/Units 07:05 17:14 21:04 WBC (4.50-10.00) X 10*3/uL MCH (27.0-32.0) pg MCHC (32.0-37.0) g/dL RDW (11.5-14.5) % Absolute Nucleated RBC (0.00-0.00) X 10*3/uL Immature Gran # (0.00-0.04) X 10*3/uL Neutrophils # (1.80-7.70) X 10*3/uL Lymphocytes # (0.90-5.00) X 10*3/uL Monocytes # (0.20-1.00) X 10*3/uL NRBC/100 WBC Diff (0.0-0.0) /100 WBCS D-Dimer (<0.60) mg/L FEU POC Glucose (mg/dL) 134 H 136 H (75-99) mg/dL Vitamin D 25-Hydroxy 19.4 L (30.0-100.0) ng/mL 07/03/20 07/03/20 07/03/20 Range/Units 06:57 06:57 07:03 WBC 28.10 H (4.50-10.00) X 10*3/uL MCH 25.9 L (27.0-32.0) pg MCHC 30.4 L (32.0-37.0) g/dL RDW 16.3 H (11.5-14.5) % Absolute Nucleated RBC 0.06 H (0.00-0.00) X 10*3/uL Immature Gran # 0.43 H (0.00-0.04) X 10*3/uL Neutrophils # 21.05 H (1.80-7.70) X 10*3/uL Lymphocytes # 5.25 H (0.90-5.00) X 10*3/uL Monocytes # 1.17 H (0.20-1.00) X 10*3/uL NRBC/100 WBC Diff 0.2 H (0.0-0.0) /100 WBCS D-Dimer 2.78 H (<0.60) mg/L FEU POC Glucose (mg/dL) 126 H (75-99) mg/dL Vitamin D 25-Hydroxy (30.0-100.0) ng/mL 07/03/20 Range/Units 11:26 WBC (4.50-10.00) X 10*3/uL MCH (27.0-32.0) pg MCHC (32.0-37.0) g/dL RDW (11.5-14.5) % Absolute Nucleated RBC (0.00-0.00) X 10*3/uL Immature Gran # (0.00-0.04) X 10*3/uL Neutrophils # (1.80-7.70) X 10*3/uL Lymphocytes # (0.90-5.00) X 10*3/uL Monocytes # (0.20-1.00) X 10*3/uL NRBC/100 WBC Diff (0.0-0.0) /100 WBCS D-Dimer (<0.60) mg/L FEU POC Glucose (mg/dL) 180 H (75-99) mg/dL Vitamin D 25-Hydroxy (30.0-100.0) ng/mL
[2020-07-03 16:42] LABS: Glucose,Whole Blood 161 mg/dL (75-99)
--- NOTE | 2020-07-03 17:05 | P.PN ---
Subjective Progress Note Date: 07/03/20 49 yo female patient hospitalized for COVID 19 pneumonia. The patient presented to the hospital because of worsening shortness of breath. Patient had nonproductive cough and fever and chills and myalgia. The patient is currently on oxygen at 15 L high flow. Initially she was on 6 L and she was brought up to 15 L. The chest x-ray is showing diffuse bilateral pulmonary infiltrates consistent with pneumonia. The CAT scan of the chest also showed diffuse bilateral groundglass pulmonary infiltrates both in the upper and lower lobes and the infiltrates are quite extensive at this point in time. The patient has no pulmonary embolism. As for the blood work, the patient has a d-dimer 1.37, the LDH was 3282 and the CRP level is at 83. The patient was given Decadron 6 mg IV. The patient will be placed on Lovenox. The patient will be admitted to the medical floor. The patient symptoms started approximately 6 days ago and since then the patient gradually On 06/24/2020, the patient is transferred to the intensive care unit. This transplant occurred early this morning. I saw this patient in intensive care unit this morning. Nevertheless, yesterday she was in the emergency. At a time of my arrival, the patient was desaturating and I put her on high flow oxygen at 6 L with an FiO2 of 100%. Overnight, the patient became more tachypneic and hypoxic. Based on that, the patient got transferred to the intensive care unit and the patient was placed on BiPAP which is currently at a pressure of 12/5 cm of water and FiO2 of 100%. She is currently generating a volume of 450 mL and her respiratory rate is quite high in the low 40s. As such, the patient carries a very high minute ventilation. In terms of her Covid 19 pneumonia, started on Decadron 6 mg IV every 24 hours. The patient was also given Tocilizumab yesterday without any major side effects or toxicities. She remains h emodynamically stable. She is producing adequate amount of urine output. She was a bit anxious yesterday and restless and she was given morphine and Xanax which calmed her down considerably. In terms of her blood work, the blood work is still pending. The chest x-ray is also pending for now. She has improved considerably with morphine which took some of her restlessness and agitation away. She remains on Decadron. She remains on Lovenox 40 mg subcu every 24 hours. On 06/25/2020, the patient remains on a BiPAP at a pressure of 14/10 with an FiO2 of 100. She obviously decompensated yesterday. She got transferred to the intensive care unit. She was placed in a foam body positioning while in the BiPAP and she was able to tolerate that. Total of 3 hours. This obviously help with her oxygenation. Her current pulse ox is in the mid 80s. She was progressing and the patient was placed on Decadron and combination with Tocilizumab and the patient is also on anticoagulation with Lovenox. She is slightly more stable compared to yesterday. She is currently in a supine body position. She is on the same BiPAP setting. D-dimer is at 1.28 and the rest of the inflammatory markers show a LDH of 3894 and the CRP of 17.4. The chest x- ray from today is showing diffuse bilateral pulmonary infiltrates consistent with Covid 19 related pneumonia. The chest x-ray findings probably are looking slightly better compared to yesterday. Otherwise, she is receiving IV fluids of normal saline at the rate of 100 mL an hour. She is producing adequate amount of urine output. No fever. She is less anxious while being on Precedex which is currently running at 0.5 mcg/kg per minute. No hemodynamic changes. No bradycardia. No agitation. No restlessness pH is able to communicate fairly well while being on a BiPAP. 06/26/2020, the patient is being seen for a follow-up. She is BiPAP dependent and she remains on a BiPAP at a pressure of 14/10 with an FiO2 of 95%. The incision same sitting exacerbates with some limited improvement in oxygenation and limited And FiO2. Current pulse ox is 94%. She managed to go in a prone body positioning for several hours yesterday and currently she is back supine and she's sleeping on her left side for now. She is quite comfortable at this point in time. She is awake and communicating. She is becoming progressively more weak and debilitated. She is also anxious. Repeat chest x-ray was done today and the findings are essentially stable compared to yesterday.. The patient remains on IV Decadron. She received Tocilizumab and she also received convalescent plasma. She is on Lovenox also for anticoagulation. In terms of her markers, the d-dimer currently is at 8.87 and the LDH level is currently at 3864 and the CRP is at 11.2. She is still on Precedex which is running at 0.7 mcg/kg per minute. Oral intake is minimal as the patient is strictly BiPAP dependent and she desaturates once off the BiPAP. IV fluids are running at the rate of 100 mL an hour of normal saline. Or 2020, the patient is transitioned to a high flow oxygen and currently she is on 60 L with an FiO2 of 90%. She is able to maintain a pulse ox of 95%. Note that she was on BiPAP for 3 days in ago and she was doing very well on the BiPAP and she was doing prone body positioning periodically. This morning, she got transitioned to high flow oxygen. She is doing slightly better. She is less short of breath. Her current pulse ox is 94%. Rest of the hemodynamics are all stable. The patient is still tachypneic and she is unable to complete full sentences. She has short of breath. However, the fact that she is off the BiPAP is a big step for her and she states that her breathing is improved compared to yesterday. The patient's chest x-ray showing diffuse interstitial infiltrates bilaterally left more than right, unchanged compared to yesterday. Her d-dimer is elevated at 12.3. LDH level is at 3149 improved and his CRP level is at 7.4, improved. The patient is on Lovenox 40 mg subcu every 24 hours. The patient is also on Decadron 6 mg IV every 24 hours. She is still on Precedex at a dose of 0.7 mcg/kg per minute. She is also on several practitioners running at 2 mg an hour for blood pressure control. She remains on metoprolol 25 mg by mouth daily. Cozaar was replaced with Zestoretic 20/12.5 one tablet a day. Will be given some limited amount of soft or clear liquid diet today now that she is on high flow oxygen in conjunction with the percent nonrebreather facemask. 06/28/2020, the patient is back on BiPAP. She was transitioned to high flow oxygen yesterday at 60 L with an FiO2 of 90%. She was given for a total of 6 hours yesterday and following that she was switched back on a BiPAP and the current pressures are 14/10 with an FiO2 of other percent. She is quite comfortable currently. Earlier this morning, she was getting worked up and she was tachypneic and she was desaturating. She was given morphine which helped her quite a bit. She is on Precedex which is running at 0.7 mcg/kg per minute. The patient is d-dimer is up to 4.3, the LDH level is down trending is down to 2797 with a CRP of 0.8. The chest x-ray is showing diffuse bilateral groundglass pulmonary infiltrates, unchanged compared to yesterday. He is hemodynamically stable. In terms of blood pressure control, she is on Catapres at 4 mg an hour. She is also taking oral antihypertensive medication and she is currently on Norvasc 5 mg by mouth daily, lisinopril hydrochlorothiazide 20/12.5 one tab today and she is also on metoprolol XL 25 mg by mouth daily. We'll make the necessary adjustments on the blood pressure medications to wean off the Celebrex drip. Her oral intake is minimal. She is quite weak. She is alert and awake and she is communicating. She remains highly anxious. 06/29/2020 patient seen in follow-up in the intensive care unit, overnight patient was maintained on BiPAP, this morning he is on Airvo at 60 L/m and FiO2 of 100%, her pulse ox is 87-92%, patient seems comfortable, no acute distress was noted, she was able to eat half of her breakfast tray, her BiPAP settings were 14/10 with FiO2 of 100%, her inflammatory markers are downtrending on today's labs, LDH his 2602, CRP is 0.7, and a d-dimer still elevated but is showing a trend down, to 11.4. No new chest x-ray from today, yesterday chest x-ray showed stable findings with diffuse "groundglass opacities bilaterally without significant change, overall clinically she seems to be improving, and he is tolerating trials off the BiPAP support and on high flow oxygen in addition to nonrebreather mask, no complaints of chest discomfort, her cough has subsided, she is able to take deeper breaths, lung sounds reveal bibasilar [place], she is awake and alert, no altered mentation, she is moving all 4 extremities, optimistic about her recovery On 06/30/2000 patient seen in follow-up in the intensive care unit, she is alert, in no acute distress, her Airvo earlier was at 60 L and FiO2 of 80%, she had since been switched to high flow nasal cannula at 15 L in addition to 100% nonrebreather, she seems to be much more comfortable on that oxygen set up, her pulse ox is 93-96%, no worsening dyspnea, she is awake alert, oriented 3, she is sitting up in bed, no cough, she is afebrile, vital signs are stable, she is currently on 0.9 normal saline at a rate of 100 ML per hour, her appetite is fair, she's been tolerating oral intake. Today's chest x-ray has been reviewed, showing persistent bilateral diffuse groundglass opacities with infiltrates that are becoming a bit more confluent in the lower lungs. Today's labs show white blood cell count of 22.7, and this is increased from yesterday's labs, from 17, today's hemoglobin is 11.9, platelet count is 200, d-dimer of 7.76, downtrending, sodium is 135, potassium is 3.5, chloride is 98, CO2 is 21, BUN of 16, creatinine 0.50, her liver enzymes show AST of 99, relatively stable, ALT has trended up, up to 163, alkaline phosphatase is 151, improving, LDH on today's lab is 2578, improving, and the CRP is less than 0.5. In terms of therapy she remains on Decadron 6 mg twice daily IV push, and she is on Lovenox 40 mg subcu twice a day, Loprox drip has been weaned off, and patient was resumed on her home medications in the form of Zestoretic, 2012 0.5, she is on Toprol-XL 25 mg daily, and she is on Norvasc 10 mg daily. Her blood pressures are better controlled ranging from 1:30 to 150 systolic, and diastolic in the 90s, and the map of 111. On 07/01/2020 patient seen in follow-up in the intensive care unit, she is awake alert and oriented 3, she is currently sitting in the recliner, she is on 15 L per hypopneas cannula pulse ox is 94%, she is breathing comfortably, blood pressures running in the 160 to 170s systolic on 90s to low 100s diastolic, she's been afebrile, she is in sinus mechanism, she's had no acute events overnight, no worsening dyspnea, no cough, no chest discomfort, no new chest x- ray today, today's labs have been reviewed and d-dimer is improving and is down to 2.02, sodium is 140, potassium is 2.1 dyspnea and replacement of the vertic al, chloride is 118, BUN is 10, creatinine 0.24, calcium level is 5.3, AST is improving, down to 50, ALT is down to 135 from 163 on yesterday's labs, and alk phos is within normal limits, LDH is down to 1391, CRP is 0.6. She is tolerating oral intake, no nausea vomiting or diarrhea, in terms of therapy she remains on Decadron 6 g twice daily she is on Lovenox 40 mg twice daily and IV fluids at 50 ML per hour. On 07/02/2020 patient seen in follow-up on medical surgical floor, she looks very comfortable, she is sitting up in bed, she states she is feeling much better, breathing much easier, she is currently on 10 L of oxygen, and her pulse ox is 95%, however an attempt to wean it down to 8 L was unsuccessful, as the patient desaturated to 85%, and he was subsequently increased back up to 10 L, however breathing-rea she is quite comfortable, sounds are diminished, no significant crackles, no wheezes, she is afebrile, vital signs have been stable overnight, no new chest x-ray today. Today's labs have been reviewed showing increased white blood cell count up to 31.36, hemoglobin is 13.2, d-dimer is 3.55 on today's labs, sodium is 142, potassium 3.5, chloride is 101, BUN of 27 creatinine 0.8. Her inflammatory markers are improving, LDH is down to 746, and CRP is less than 0.4 on today's labs, she remains on daily dose of IV dexamethasone On 07/03/2020 patient seen in follow-up on medical surgical floor, she continues to improve, breathing easier, she is currently on 6 L of oxygen, her pulse ox is 93-96%, no dyspnea, occasional cough, awake and oriented 3, she is afebrile, placenta stable, she does become short of breath with exertion, but recovers with rest, she has had no acute events overnight, no new chest x-ray today. Her labs today have been reviewed, leukocytosis is improving, her white blood cell count is down to 28.1, hemoglobin is 13, d-dimer is trending down and is down to 2.78 today. She is tolerating oral intake, no nausea vomiting or diarrhea, her pro-calcitonin level was negative at 0.06, blood cultures have been negative Objective - Vital Signs Vital signs: Vital Signs Temp 98.1 F 07/03/20 13:33 Pulse 105 H 07/03/20 13:33 Resp 21 07/03/20 13:33 BP 104/75 07/03/20 13:33 Pulse Ox 96 07/03/20 13:33 Intake & Output 07/02/20 07/03/20 07/03/20 18:59 06:59 18:59 Intake Total 240 Balance 240 Weight 83.9 kg Intake: Oral 240 Other: Voiding Method Toilet Toilet # Voids 3 - Exam GENERAL EXAM: Alert, very pleasant, 49-year-old can female on 6 L per high flow nasal cannula with pulse ox of 94%, breathing comfortably, sitting up in the recliner, comfortable in no apparent distress. HEAD: Normocephalic/atraumatic. EYES: Normal reaction of pupils, equal size. Conjunctiva pink, sclera white. NOSE: Clear with pink turbinates. THROAT: No erythema or exudates. NECK: No masses, no JVD, no thyroid enlargement, no adenopathy. CHEST: No chest wall deformity. Symmetrical expansion. LUNGS: Equal air entry with minimal bibasilar crackles CVS: Regular rate and rhythm, normal S1 and S2, no gallops, no murmurs, no rubs ABDOMEN: Soft, nontender. No hepatosplenomegaly, normal bowel sounds, no guarding or rigidity. EXTREMITIES: No clubbing, no edema, no cyanosis, 2+ pulses and upper and lower extremities. MUSCULOSKELETAL: Muscle strength and tone normal. SPINE: No scoliosis or deformity SKIN: No rashes CENTRAL NERVOUS SYSTEM: Alert and oriented -3. No focal deficits, tone is normal in all 4 extremities. PSYCHIATRIC: Alert and oriented -3. Appropriate affect. Intact judgment and insight. - Labs CBC & Chem 7: 07/03/20 06:57 07/02/20 07:05 Labs: Abnormal Lab Results - Last 24 Hours (Table) 07/02/20 07/02/20 07/02/20 Range/Units 07:05 17:14 21:04 WBC (4.50-10.00) X 10*3/uL MCH (27.0-32.0) pg MCHC (32.0-37.0) g/dL RDW (11.5-14.5) % Absolute Nucleated RBC (0.00-0.00) X 10*3/uL Immature Gran # (0.00-0.04) X 10*3/uL Neutrophils # (1.80-7.70) X 10*3/uL Lymphocytes # (0.90-5.00) X 10*3/uL Monocytes # (0.20-1.00) X 10*3/uL NRBC/100 WBC Diff (0.0-0.0) /100 WBCS D-Dimer (<0.60) mg/L FEU POC Glucose (mg/dL) 134 H 136 H (75-99) mg/dL Vitamin D 25-Hydroxy 19.4 L (30.0-100.0) ng/mL 07/03/20 07/03/20 07/03/20 Range/Units 06:57 06:57 07:03 WBC 28.10 H (4.50-10.00) X 10*3/uL MCH 25.9 L (27.0-32.0) pg MCHC 30.4 L (32.0-37.0) g/dL RDW 16.3 H (11.5-14.5) % Absolute Nucleated RBC 0.06 H (0.00-0.00) X 10*3/uL Immature Gran # 0.43 H (0.00-0.04) X 10*3/uL Neutrophils # 21.05 H (1.80-7.70) X 10*3/uL Lymphocytes # 5.25 H (0.90-5.00) X 10*3/uL Monocytes # 1.17 H (0.20-1.00) X 10*3/uL NRBC/100 WBC Diff 0.2 H (0.0-0.0) /100 WBCS D-Dimer 2.78 H (<0.60) mg/L FEU POC Glucose (mg/dL) 126 H (75-99) mg/dL Vitamin D 25-Hydroxy (30.0-100.0) ng/mL 07/03/20 07/03/20 Range/Units 11:26 16:41 WBC (4.50-10.00) X 10*3/uL MCH (27.0-32.0) pg MCHC (32.0-37.0) g/dL RDW (11.5-14.5) % Absolute Nucleated RBC (0.00-0.00) X 10*3/uL Immature Gran # (0.00-0.04) X 10*3/uL Neutrophils # (1.80-7.70) X 10*3/uL Lymphocytes # (0.90-5.00) X 10*3/uL Monocytes # (0.20-1.00) X 10*3/uL NRBC/100 WBC Diff (0.0-0.0) /100 WBCS D-Dimer (<0.60) mg/L FEU POC Glucose (mg/dL) 180 H 161 H (75-99) mg/dL Vitamin D 25-Hydroxy (30.0-100.0) ng/mL Assessment and Plan Plan: Assessment: 1 acute COVID 19 related pneumonia with secondary respiratory failure. The patient started developing symptoms on 06/17/2020 with chest x-ray showing diffuse but the pulmonary infiltrates and sooner findings were also seen on the CT angiogram. The patient is currently in the intensive care unit on a BiPAP at a pressure of 14/10 with an FiO2 of 100%. She remains on Precedex. She remains on morphine to be given a stat basis to control her breathlessness and agitation and anxiety. Inflammatory markers including LDH is dropping, CRP is dropping, d-dimer remains elevated. Today on 07/01/2020 is down to 15 L per high flow nasal cannula and her pulse ox is between 93-94% 2 acute hypoxic respiratory failure secondary to above, improving 3 elevated inflammatory markers secondary to above, d-dimer is elevated. Improving 4 fever and constitutional symptoms secondary to above, improving 5 hypertension 6 previous history of substance abuse plan: Fio2 is currently down to 6 L, and we will continue weaning it Today's labs have been reviewed, pro-calcitonin level is negative, leukocytosis is improving, D-dimer is trending down, Clinically feeling better, breathing easier, Continue current dose Decadron, and Lovenox, continue Polyvitamin's Consider for discharge home today in the next 24 hours if she continues to improve, obtain home oxygen assessment and it is likely the patient will require home oxygen to go home on, recommend 30 days of 10 mg daily prophylactic basis, and outpatient course of Decadron 6 mg daily for another 7 days. She will need outpatient follow-up with Dr. Ndiaye in the office in 2 weeks I performed a history & physical examination of the patient and discussed their management with my nurse practitioner, Keily Calhoun. I reviewed the nurse practitioner's note and agree with the documented findings and plan of care. Lung sounds are positive for bibasilar crackles. The findings and the impression was discussed with the patient. I attest to the documentation by the nurse practitioner. Time with Patient: Less than 30
[2020-07-03 20:23] LABS: Glucose,Whole Blood 118 mg/dL (75-99)
[2020-07-04 07:05] LABS: Glucose,Whole Blood 100 mg/dL (75-99)
[2020-07-04] MEDS: INSULIN ASPART (NovoLOG) 100 UNIT/ML VIAL SQ SCH ×2 (07:54→11:55)
[2020-07-04] MEDS: cloNIDine HCL 0.1 MG TAB PO SCH (08:10)
[2020-07-04] MEDS: amLODIPine 10 MG TAB PO SCH (08:12)
[2020-07-04] MEDS: LISINOPRIL-HCTZ 20-12.5 MG 1 EACH TAB PO SCH (08:12)
[2020-07-04] MEDS: METOPROLOL SUCCINATE (ER) 50 MG TAB.ER.24H PO SCH (08:20)
[2020-07-04] MEDS: DEXAMETHASONE SOD PHOSPHATE 10 MG/ML 1 ML VIAL IV SCH (08:20)
[2020-07-04] MEDS: ENOXAPARIN 40 MG/0.4 ML SYRINGE SQ SCH (08:20)
[2020-07-04] MEDS: POTASSIUM CHLORIDE ER 20 MEQ TAB.ER PO SCH (08:21)
[2020-07-04] MEDS: FAMOTIDINE 20 MG TAB PO SCH (08:21)
[2020-07-04] MEDS: CHOLECALCIFEROL 25 MCG (1000 IU) TABLET PO SCH (08:21)
[2020-07-04] MEDS: ZINC SULFATE 220 MG CAP PO SCH (08:21)
[2020-07-04] MEDS: ASCORBIC ACID 500 MG TAB PO SCH (08:21)
[2020-07-04 09:58] VITALS: RESP 16
[2020-07-04 14:10] VITALS: BP 111/76; PULSE 105; TEMP 98.3
[2020-07-04] MEDS ORDERED: RIVAROXABAN 10 MG TAB PO SCH (16:00)
--- NOTE | 2020-07-04 16:07 | P.DS ---
Providers Date of admission: 06/23/20 01:24 Expected date of discharge: 07/04/20 (on oxygen currently 5 L for 30 days.) Attending physician: Francesco Wood Consults: 06/23/20 01:26 Consult Physician Routine Consulting Provider: Harshad Estrada Consult Reason/Comments: Covid-19 pneumonia. Hypoxemia Do you want consulting provider notified?: Yes Primary care physician: Francesco Wood discharge summary Final diagnosis : #1 acute Covid 19 pneumonia with secondary respiratory failure. #2 symptoms started on 06/17/2020 at the time of screen for Covid on her return from [place] with her boyfriend who is negative #3 Covid marker was high and ICU admission in the hospitalwhich is inflammatory marker, CRP, d-dimer, LDH. #4 acute hypoxic respiratory failure which is gradual improvement, currently on oxygen titrated down to 5 L. #5 fever with the associated constitutional symptoms as well as shortness of breath associated with Covid. #6 hypertension. #7history of substance abuse. ER presentation: Patient presented to the ER with the shortness of breath, infiltrate related to covid-19 viral infection patient subsequently admitted to the will to the floor and then transferred to the ICU with the progression of her condition. Hospital course Patient admitted to the ICU with the BiPAP and high flow oxygen and that treated with the critical care pulmonary and critical care with the also in termittently high flow oxygen she had significant difficulty to recover until 2 days ago transferred from the ICU to [facility] floor and she is on high flow oxygen subsequently titrated currently on 5 L/m. Pulmonary clear to her for discharge today as well as her blood pressure medication adjusted and the patient will be seen by Dr. Denney in his office for follow-up in 2 weeks and he will be also seen in my office next week. And pulmonary had addressed that she has to be on [place] Mrs. Ole 6 mg for 7 days and the role 210 mg once a day for 1 months prescription [facility] to [facility] Sgib-jo-nyxy examination: Patient is conscious alert oriented 3 ambulatory able to walk and eat and no neurological deficit. The head was normocephalic and atraumatic pupils equal reactive oropharynx natural teeth. Normal hearing Neck was supple no JVD no thyromegaly no lymphadenopathy. Chest still have limited inflation of the chest with the basilar rhonchi's but her oxygen has been significantly improved currently on 5 L and she will have oxygen at home. Heart regular sinus rhythm and her blood pressure currently and readjusted her medication down currently on discharge her vital sign temperature 98.3. Oral her heart rate ranging between 90-105 respiratory rate 16 blood pressure 111/76. Abdomen is soft positive bowel sounds no tenderness in the 4 quadrants and no nausea no vomiting. Extremities no edema and positive pulses. Neurologically stable. Patient is stable general condition Discharge home today with the medication. Follow-up with pulmonary and critical care Dr. Pastor Follow-up with Dr. Jones next week. Continue the oxygen therapy Continue his overall to and continue steroid dexamethasone Patient Condition at Discharge: Fair Plan - Discharge Summary Discharge Rx Participant: No New Discharge Prescriptions: New Dexamethasone [Decadron] 6 mg PO DAILY 7 Days #7 tablet Rivaroxaban [Xarelto] 10 mg PO DAILY 30 Days #30 tab No Action Losartan [Cozaar] 50 mg PO DAILY Discharge Medication List Losartan [Cozaar] 50 mg PO DAILY 06/23/20 [History] Dexamethasone [Decadron] 6 mg PO DAILY 7 Days #7 tablet 07/03/20 [Rx] Rivaroxaban [Xarelto] 10 mg PO DAILY 30 Days #30 tab 07/03/20 [Rx] Follow up Appointment(s)/Referral(s): [place],Equipment [NON-STAFF] - (*Please call [place] once home to arrange delivery of the oxygen concentrator. ) Lei Ndiaye MD [STAFF PHYSICIAN] - 2 Weeks Francesco Wood MD [Primary Care Provider] - 1 Week Activity/Diet/Wound Care/Special Instructions: continue home oxygen for 30 days currently on 5 L with gradual titration. Discharge Disposition: HOME SELF-CARE
[2020-07-04] MEDS ORDERED: cloNIDine HCL 0.1 MG TAB PO SCH (21:00)
[2020-07-05] MEDS ORDERED: dexAMETHasone 2 MG TAB PO SCH (09:00)
== END 2020-07-04 16:38 | disposition home or self-care (01) | DRG 177 ==
LOC: EC 20:48 → 3SCARD 06-23 01:24 → 2SICU 06-24 04:11 → 4SSUR 07-01 16:11
PROVIDERS: ADMIT Internal Medicine; ATTEND Internal Medicine
PROC: 5A09457 Assistance with Respiratory Ventilation, 24-96 Consecutive Hours, Continuous Positive Airway Pressure (ICD-10-PCS; 2020-06-23)
PROC: XW13325 Transfusion of Convalescent Plasma (Nonautologous) into Peripheral Vein, Percutaneous Approach, New Technology Group 5 (ICD-10-PCS; 2020-06-23)
PROC: 02HV33Z Insertion of Infusion Device into Superior Vena Cava, Percutaneous Approach (ICD-10-PCS; principal; 2020-06-26 13:35)
DX: U07.1 COVID-19 (principal); J12.82 Pneumonia due to coronavirus disease 2019; J81.0 Acute pulmonary edema; J96.01 Acute respiratory failure with hypoxia; J44.0 Chronic obstructive pulmonary disease with (acute) lower respiratory infection; E11.9 Type 2 diabetes mellitus without complications; F17.200 Nicotine dependence, unspecified, uncomplicated; F41.9 Anxiety disorder, unspecified; I11.9 Hypertensive heart disease without heart failure; Z68.32 Body mass index [BMI] 32.0-32.9, adult; Z79.01 Long term (current) use of anticoagulants; Z79.899 Other long term (current) drug therapy; Z80.0 Family history of malignant neoplasm of digestive organs
CPT/HCPCS: 36415; 36573; 71045; 71275; 80048; 80053; 80306; 82306; 82330; 82728; 82805; 83605; 83615; 83735; 84100; 84145; 85025; 85379; 85384; 85610; 85730; 86140; 86850; 86900; 86901; 87040; 93005; 94660; 96365; 99285

== ENCOUNTER → 2020-08-15 | Outpatient (CLI) | payer OTHER ==
--- NOTE | 2020-08-15 07:42 | XR ---
EXAMINATION TYPE: XR chest 2V DATE OF EXAM: 08/15/2020 COMPARISON: Chest x-ray June 30, 2020 and older studies. CTA chest June 23, 2020 HISTORY: Smoker, shortness of breath, fibrosis. COVID one month earlier. TECHNIQUE: Frontal and lateral views of the chest are obtained. FINDINGS: Persistent reticulonodular increased opacities in the lower lungs more prominent from [place] but improved in the upper to mid lungs from most recent x-ray June 30. Interval removal of right -sided PICC line. Tiny left lateral pneumothorax seen on current study under 5%. The cardiac silhouet te size remains within normal limits. The osseous structures are intact. IMPRESSION: Improving but persistent bilateral reticulonodular opacities, some remaining present in t he lower lungs. Tiny left-sided pneumothorax estimated 5% or smaller on current x-ray. A Yellow level critical message alert has been initiated for Francesco Wood MD via the [employer] Critical Results System on 08/15/2020 7:39 AM. This message alert has been sent to Francesco Wood MD via the preferences provided by the clinician for the receipt of Radiology Critical Findings. Netzoptiker e ID [id number].
[2020-08-15 12:07] LABS: WBC 9.59 X 10*3/uL (4.50-10.00)
[2020-08-15 12:08] LABS: Basophils # (A) 0.06 X 10*3/uL (0.00-0.10); Basophils % (A) 0.6 %; Eosinophils # (A) 0.14 X 10*3/uL (0.04-0.35); Eosinophils % (A) 1.5 %; HCT 37.8 % (37.2-46.3); HGB 11.4 g/dL (12.0-15.0); Lymphocytes # (A) 3.36 X 10*3/uL (0.90-5.00); MCH 25.7 pg (27.0-32.0); MCHC 30.2 g/dL (32.0-37.0); MCV 85.1 fL (80.0-97.0); Mean Platelet Volume 8.9 fL (9.5-12.2); Monocytes # (A) 0.61 X 10*3/uL (0.20-1.00); Monocytes % (A) 6.4 %; Neutrophils # (A) 5.38 X 10*3/uL (1.80-7.70); Neutrophils % (A) 56.1 %; Platelet Count 459 X 10*3/uL (140-440); RBC 4.44 X 10*6/uL (4.10-5.20); RDW 17.2 % (11.5-14.5)
[2020-08-16 04:13] LABS: African American GFR (CKD) 116.3 (60.0-200.0); Albumin 4.3 g/dL (3.80-4.90); Albumin/Globulin Ratio 1.34 (1.60-3.17); Anion Gap 13.4 mmol/L (4.00-12.00); BUN/Creat Ratio 17.14 Ratio (12.00-20.00); C Reactive Protein 0.6 mg/dL (0.0-0.8); Calcium 9.8 mg/dL (8.7-10.3); Carbon Dioxide 20.6 mmol/L (21.6-31.8); Globulin 3.2 g/dL (1.6-3.3); Non-African American GFR(CKD) 100.3 (60.0-200.0); Potassium 4.3 mmol/L (3.5-5.5); Total Bilirubin 0.2 mg/dL (0.3-1.2); Total Protein 7.5 g/dL (6.2-8.2)
== END | disposition home or self-care (01) ==
LOC: LABWHC1 07:03
PROVIDERS: ATTEND Internal Medicine
DX: J12.9 Viral pneumonia, unspecified (principal); J06.9 Acute upper respiratory infection, unspecified
CPT/HCPCS: 36415; 71046; 80053; 83036; 83615; 85025; 85379; 86140

== ENCOUNTER → 2020-08-27 | Outpatient (CLI) | payer OTHER ==
--- NOTE | 2020-08-27 14:17 | CT ---
EXAMINATION TYPE: CT chest w con DATE OF EXAM: 08/27/2020 COMPARISON: Chest CT June 23, 2020 HISTORY: abnormal chest xray (at [facility]) post covid infection CT DLP: 445 mGycm. Automated Exposure Control for Dose Reduction was Utilized. TECHNIQUE: CT scan of the thorax is performed following with IV Contrast, patient injected with 100 mL of Isovue 300. FINDINGS: LUNGS: Areas of groundglass opacity and reticulation remain present in the mid to lower lungs though significantly improved from prior study. No pleural effusion or pneumothorax seen bilaterally. Stable subpleural 9 x 7 mm anterior right mid lung nodule axial image 22. Mild emphysematous change in the upper lungs redemonstrated. MEDIASTINUM: There are persistently enlarged bilateral hilar lymph nodes along with enlarged prevascu lar and subcarinal lymph nodes. Heart size stable and upper limits of normal. No significant new per icardial effusion is seen. OTHER: Slight scoliotic curvature with mild multilevel spurring. IMPRESSION: Improved but persistent groundglass opacities and reticulation in the mid to lower lungs bilaterally thought to reflect resolving covid-19 infection. Abnormal thoracic adenopathy is stable. Stable peripheral 9 x 7 mm anterior right midlung nodule. Follow-up advised as per Fleischner Society recommendations.
== END | disposition home or self-care (01) ==
LOC: RADCTMAIN 11:44
PROVIDERS: ATTEND Internal Medicine
DX: U07.1 COVID-19 (principal); R91.8 Other nonspecific abnormal finding of lung field
CPT/HCPCS: 71260; Q9967

== ENCOUNTER 2021-05-06 18:23 | Emergency (ER) | payer OTHER ==
[2021-05-06 19:00] VITALS: BP 154/95; PULSE 102; RESP 22; TEMP 98
--- NOTE | 2021-05-06 21:43 | ED ---
General Adult HPI - General Chief complaint: Abdominal Pain Stated complaint: abd pain Time Seen by Provider: 05/06/21 20:56 Source: patient Mode of arrival: ambulatory Limitations: no limitations - History of Present Illness Initial comments: Dictation was produced using [employer] dictation software. please excuse any grammatical, word or spelling errors. Chief Complaint: 50-year-old female presents with epigastric abdominal pain after sneezing History of Present Illness: 1-year-old female presents emergency department for pain in her abdomen. Patient states she sneezed really hard and felt pain during the sneezed patient states that it went away. Currently asymptomatic. Patient states she sometimes gets pain whenever she does stroke or rotation. She follow-up with her primary care doctor regarding this. She allegedly has a colonoscopy scheduled. The ROS documented in this emergency department record has been reviewed and confirmed by me. Those systems with pertinent positive or negative responses have been documented in the HPI. All other systems are other negative and/or noncontributory. PHYSICAL EXAM: General Impression: Alert and oriented x3, not in acute distress HEENT: Normocephalic atraumatic, extra-ocular movements intact, pupils equal and reactive to light bilaterally, mucous membranes moist. Cardiovascular: Heart regular rate and rhythm Chest: Able to complete full sentences, no retractions, no tachypnea Abdomen: abdomen soft, non-tender, non-distended, no organomegaly Musculoskeletal: Pulses present and equal in all extremities, no peripheral edema Motor: no focal deficits noted Neurological: CN II-XII grossly intact, no focal motor or sensory deficits noted Skin: Intact with no visualized rashes Psych: Normal affect and mood ED course: 50-year-old female presents emergency department for abdominal strain after sneezing. She is asymptomatic at the bedside. Vital Signs upon arrival are within acceptable limits at the bedside she is asymptomatic. Patient's agreeable for discharge she is told to follow-up with her primary care doctor. - Related Data Previous Rx's Medication Instructions Recorded Dexamethasone [Decadron] 6 mg PO DAILY 7 Days #7 tablet 07/03/20 Rivaroxaban [Xarelto] 10 mg PO DAILY 30 Days #30 tab 07/03/20 Ascorbic Acid [Vitamin C] 250 mg PO DAILY #30 tab 07/04/20 Cholecalciferol [Vitamin D3 (25 50 mcg PO DAILY #90 tablet 07/04/20 Mcg = 1000 Iu)] Famotidine [Pepcid] 20 mg PO BID #60 tab 07/04/20 INSULIN ASPART (NovoLOG) [NovoLOG 2 - 10 unit SQ ACHS PRN #1 vial 07/04/20 (formulary)] Metoprolol Succinate (ER) [Toprol 50 mg PO DAILY #30 tab.er.24h 07/04/20 XL] Zinc Sulfate [Orazinc] 220 mg PO DAILY #30 cap 07/04/20 amLODIPine [Norvasc] 10 mg PO DAILY #30 tab 07/04/20 cloNIDine HCL [Catapres] 0.1 mg PO HS #30 tab 07/04/20 Allergies Allergy/AdvReac Type Severity Reaction Status Date / Time No Known Allergies Allergy Verified 06/23/20 08:12 Review of Systems ROS Statement: Those systems with pertinent positive or pertinent negative responses have been documented in the HPI. ROS Other: All systems not noted in ROS Statement are negative. Past Medical History Past Medical History: Hypertension Additional Past Medical History / Comment(s): Covid + 06/19/20 History of Any Multi-Drug Resistant Organisms: None Reported Past Surgical History: Section Additional Past Surgical History / Comment(s): L axillary hydradenitis surgery Past Anesthesia/Blood Transfusion Reactions: No Reported Reaction Past Psychological History: No Psychological Hx Reported Smoking Status: Current every day smoker - Past Family History Father Additional Family Medical History / Comment(s): Father drowned. Mother Family Medical History: Cancer Additional Family Medical History / Comment(s): Mother had pancreatic cancer. General Exam Limitations: no limitations Course Vital Signs 05/06/21 18:55 Temperature 98.0 F Pulse Rate 102 H Respiratory 22 Rate Blood Pressure 154/95 O2 Sat by Pulse 94 L Oximetry Disposition Clinical Impression: Abdominal wall strain Disposition: HOME SELF-CARE Condition: Good Instructions (If sedation given, give patient instructions): Muscle Strain (ED) Is patient prescribed a controlled substance at d/c from ED?: No Referrals: Francesco Wood MD [Primary Care Provider] - 1-2 days
== END 2021-05-06 22:05 | disposition home or self-care (01) ==
LOC: EC 18:23
DX: S39.011A Strain of muscle, fascia and tendon of abdomen, initial encounter (principal); I10 Essential (primary) hypertension; F17.200 Nicotine dependence, unspecified, uncomplicated; Z79.4 Long term (current) use of insulin; X50.0XXA Overexertion from strenuous movement or load, initial encounter
CPT/HCPCS: 99283

== ENCOUNTER 2021-09-30 06:54 | Day surgery (SDC) | payer OTHER ==
[2021-09-29 11:15] VITALS: BMI 35.4
[~2021-09-30 06:54] MED LIST: LACTATED RINGERS 1,000 ML IV SCH
[2021-09-30 07:48] VITALS: TEMP 97.8
[2021-09-30] MEDS ORDERED: LIDOCAINE 2% INJ 20 MG/ML (2 ML VIAL) ONE (08:00)
[2021-09-30] MEDS ORDERED: PROPOFOL 10 MG/ML 20 ML VIAL IV ONE (08:00)
[2021-09-30 08:01] LABS: Glucose,Whole Blood 99 mg/dL (70-110)
--- NOTE | 2021-09-30 08:25 | P.PCN ---
Date of Procedure: 09/30/21 Procedure(s) Performed: Brief history: Patient is a pleasant 51-year-old -[place] female scheduled for an elective upper endoscopy as well as colonoscopy as a part of evaluation of upper abdominal pain mostly in the epigastric area for the last several months duration. She is scheduled for a screening colonoscopy today. Procedure performed: Esophagogastroduodenoscopy with biopsy Colonoscopy Preoperative diagnosis: Chronic epigastric pain and screening for colon cancer Anesthesia: MAC Procedure: After informed consent was obtained from the patient was brought into the endoscopy unit and IV sedation was administered by anesthesia under continuous monitoring. Initially upper endoscopy was done. The Olympus GF 160 video endoscope was inserted inserted into the mouth and esophagus intubated without any difficulty and was gradually advanced into the stomach and duodenum and carefully examined. The bulb and second part of the duodenum appeared normal. Abscesses were done from the duodenum to rule out celiac disease. The scope was then withdrawn into the stomach adequately insufflated with air and upon careful examination the antru scattered erosions and biopsies were done from this area. The body, cardia and fundus appeared normal. The scope was then withdrawn into the esophagus. The GE junction was located at 40 cm to the incisors. It appeared regular with no erythema erosions or ulcerations. Rest of the esophagus appeared normal. Abscesses were done from the distal esophagus. Patient tolerated the procedure well. At this time the patient continued to remain sedation. Initial digital rectal examination was normal. Olympus CF 160 video colonoscope was then inserted into the rectum and gradually advanced to the cecum without any difficulty. Careful examination was performed as the scope was gradually being withdrawn. The prep was excellent. The cecum, ascending colon, transverse colon, descending colon, sigmoid colon and rectum appeared normal. Retroflexion was performed in the rectum and no lesions were noted. Patient tolerated the procedure well. Impression: 1.Upper endoscopy revealed mild antral gastritis and duodenitis 2.Colonoscopy was within normal limits with no evidence of colorectal neoplasia Recommendations: Findings of this examination were discussed with the patient as well Marii family. She was advised to follow with the biopsy results. Recommend repeat screening colonoscopy in 10 years.
[2021-09-30 08:29] VITALS: RESP 17
[2021-09-30 08:44] VITALS: BP 157/98; PULSE 82
== END 2021-09-30 09:10 | disposition home or self-care (01) ==
LOC: ORWHC2ENDO 06:54
PROVIDERS: ATTEND Internal Medicine Gastroenterology
DX: Z12.11 Encounter for screening for malignant neoplasm of colon (principal); K29.50 Unspecified chronic gastritis without bleeding; K21.00 Gastro-esophageal reflux disease with esophagitis, without bleeding; K29.80 Duodenitis without bleeding; I10 Essential (primary) hypertension; F17.210 Nicotine dependence, cigarettes, uncomplicated; E11.9 Type 2 diabetes mellitus without complications; Z79.84 Long term (current) use of oral hypoglycemic drugs; Z79.899 Other long term (current) drug therapy
CPT/HCPCS: 88305; 43239; J2704; J2001; G0121; 45378

== ENCOUNTER 2022-06-20 17:47 | Emergency (ER) | payer OTHER ==
[2022-06-20 18:01] VITALS: TEMP 98.5
--- NOTE | 2022-06-20 18:02 | ED ---
General Adult HPI - General Chief complaint: Chest Pain Stated complaint: sob, chest pain Time Seen by Provider: 06/20/22 18:01 Source: patient Mode of arrival: wheelchair Limitations: no limitations - History of Present Illness Initial comments: Patient presents to the ED complaining of having left sided chest pain radiating to her left arm with associated dyspnea and nausea for the past 3 hours or so. Patient also states that for the past 3 days, she has had dark colored stools, and she states that she has noticed blood on the toilet paper after wiping as well. Patient denies trauma or injury, fever or chills, headache, focal numbness/weakness/neuro deficit, neck/jaw/back pain, pleuritic pain, cough or cold symptoms, palpitations, dizziness, diaphoresis, vomiting, diarrhea or constipation, dysuria/hematuria/urinary frequency/urinary symptoms, decreased urine output, leg or calf swelling or pain, or any other symptoms or complaints. Patient denies anticoagulant medication use. Patient denies illicit drug use. - Related Data Home Medications Medication Instructions Recorded Confirmed sitaGLIPtin PHOS/metFORMIN HCL 1 tab PO DAILY 09/29/21 06/20/22 [Janumet 50-500 mg Tablet] Atorvastatin [Lipitor] 10 mg PO W/SUPPER 06/20/22 06/20/22 Ergocalciferol (Vitamin D2) 1,250 mcg PO TU 06/20/22 06/20/22 [Drisdol (50,000 Iu)] Fluconazole [Diflucan] 100 mg PO Q48H 06/20/22 06/20/22 Losartan Potassium [Cozaar] 100 mg PO DAILY 06/20/22 06/20/22 amLODIPine [Norvasc] 10 mg PO HS 06/20/22 06/20/22 hydrALAZINE HCL [Apresoline] 50 mg PO TID 06/20/22 06/20/22 Allergies Allergy/AdvReac Type Severity Reaction Status Date / Time No Known Allergies Allergy Verified 06/20/22 18:50 Review of Systems ROS Statement: Those systems with pertinent positive or pertinent negative responses have been documented in the HPI. ROS Other: All systems not noted in ROS Statement are negative. Past Medical History Past Medical History: COPD, Diabetes Mellitus, Hypertension Additional Past Medical History / Comment(s): Covid + 06/19/20, abdominal pain, loose stools, History of Any Multi-Drug Resistant Organisms: None Reported Past Surgical History: Section Additional Past Surgical History / Comment(s): L axillary boil removed Past Anesthesia/Blood Transfusion Reactions: No Reported Reaction Past Psychological History: No Psychological Hx Reported Smoking Status: Current every day smoker - Past Family History Father Additional Family Medical History / Comment(s): Father drowned. Mother Family Medical History: Cancer Additional Family Medical History / Comment(s): Mother had pancreatic cancer. General Exam Limitations: no limitations General appearance: alert, in no apparent distress Head exam: Present: atraumatic, normocephalic Eye exam: Present: normal appearance ENT exam: Present: mucous membranes moist Neck exam: Present: other (Trachea is in midline) Respiratory exam: Present: normal lung sounds bilaterally. Absent: respiratory distress, wheezes, rales, rhonchi, stridor, chest wall tenderness Cardiovascular Exam: Present: normal rhythm, tachycardia, normal heart sounds, other (Normal radial pulses bilaterally) GI/Abdominal exam: Present: soft, normal bowel sounds. Absent: distended, tenderness, guarding Rectal exam: Present: normal rectal tone, other (ED RN Lin Dueñas assisted with rectal exam; brown colored stool was retrieved from rectal vault on digital rectal exam and sent for Hemoccult testing). Absent: hemorrhoids, tenderness Extremities exam: Present: other (Negative Homans sign bilaterally). Absent: tenderness, pedal edema, calf tenderness Neurological exam: Present: alert, oriented X3. Absent: motor sensory deficit Psychiatric exam: Present: other (Patient is anxious in appearance and somewhat tearful) Skin exam: Present: warm, dry, intact, normal color Course Vital Signs 06/20/22 06/20/22 06/20/22 17:58 19:00 19:16 Temperature 98.5 F Pulse Rate 113 H 96 90 Respiratory 18 18 16 Rate Blood Pressure 145/80 131/94 122/79 O2 Sat by Pulse 98 95 95 Oximetry - Reevaluation(s) Reevaluation #1: 06/20/22 19:18 Case, H&P, test results and ED management thus far were discussed with Dr. Wood. He recommends transferring the patient to a facility with GI coverage given the patient's reported GI bleeding and Hemoccult positive stool. He has no further recommendations at this time. 06/20/22 19:28 Patient denies development of any new symptoms while in the ED. Patient remains alert and breathing comfortably. Patient is aware of her test results and my discussion with Dr. Wood as above. She agrees with plan to transfer her to [facility] at this time given we do not have GI coverage here this weekend. 06/20/22 19:52 Case, H&P, test results and ED management thus far were discussed with Dr. Pollard (GI at [facility]). He states that he will discuss with their ED and call me back. He has no further recommendations at this time. 06/20/22 19:57 Dr. Pollard has called back and states that they will accept the patient for ambulance transfer to the [facility] ED. Transfer was accepted by ED physician Dr. Soriano. EKG Findings - EKG Comments: EKG Findings:: ED physician interpretation: Sinus tachycardia, ventricular rate of 103 bpm, no ectopy, normal [place] and QRS intervals, normal QT interval, normal axis, nonspecific T-wave abnormality Medical Decision Making - Medical Decision Making Was pt. sent in by a medical professional or institution (, PA, MULTICUT LINE OPERATOR, urgent care, hospital, or penitentiary...) When possible be specific @ -No Did you speak to anyone other than the patient for history (EMS, parent, family, police, friend...)? What history was obtained from this source @ -No Did you review nursing and triage notes (agree or disagree)? Why? @ -I reviewed and agree with nursing and triage notes Were old charts reviewed (outside hosp., previous admission, EMS record, old EKG, old radiological studies, urgent care reports/EKG's, penitentiary records)? Report findings @ -No old charts were reviewed Differential Diagnosis (chest pain, altered mental status, abdominal pain women, abdominal pain men, vaginal bleeding, weakness, fever, dyspnea, syncope, headache, dizziness, GI bleed, back pain, seizure, CVA, palpatations, mental health, musculoskeletal)? @ -Differential Chest Pain: Stable Angina, Unstable Angina, STEMI, NSTEMI, aortic dissection, PE, Pneumothorax, Musculoskeletal, Esophageal Spasm, GERD, GI bleed, anemia, coagulopathy, this is not meant to be an all-inclusive list. EKG interpreted by me (3pts min.). @ -As above X-rays interpreted by me (1pt min.). @ -I have reviewed the patient's chest x-ray myself, and I agree with the radiologist's interpretation as above. CT interpreted by me (1pt min.). @ -None done U/S interpreted by me (1pt. min.). @ -None done What testing was considered but not performed or refused? (CT, X-rays, U/S, labs)? Why? @ -None What meds were considered but not given or refused? Why? @ -None Did you discuss the management of the patient with other professionals (professionals i.e. Dr., PA, MULTICUT LINE OPERATOR, lab, RT, psych nurse, forensic social worker, mercury cell cleaner, teacher, purchasing officer, case management coordinator)? Give summary @ -As above. Was smoking cessation discussed for >3mins.? @ -No Was critical care preformed (if so, how long)? @ -No Were there social determinants of health that impacted care today? How? (Homelessness, low income, unemployed, alcoholism, drug addiction, transportation, low edu. Level, literacy, decrease access to med. care, nursing home, rehab)? @ -No Was there de-escalation of care discussed even if they declined (Discuss DNR or withdrawal of care, Hospice)? DNR status @ -No What co-morbidities impacted this encounter? (DM, HTN, Smoking, COPD, CAD, Can cer, CVA, ARF, Chemo, Hep., AIDS, mental health diagnosis, sleep apnea, morbid obesity)? @ -Hypertension and diabetes Was patient admitted / discharged? Hospital course, mention meds given and route, prescriptions, significant lab abnormalities, going to OR and other pertinent info. @ -Patient states that her chest pain has improved while in the ED. Patient's EKG is nonspecific. Patient's initial troponin is negative. Patient's chest x- ray is unremarkable. Patient's d-dimer is also negative. Patient's BUN and hemoglobin are within normal limits. Patient's tachycardia has improved while in the ED. Given the patient's reported GI bleeding, Hemoccult positive stool and lack of GI coverage in our hospital at this time, will transfer the patient to [facility]. Patient agrees with this plan. Ambulance transfer to the [facility] ED was accepted by Dr. Soriano (ED physician). No aspirin or anticoagulation was given in the ED due to GI bleeding. Undiagnosed new problem with uncertain prognosis? @ -No Drug Therapy requiring intensive monitoring for toxicity (Heparin, Nitro, Insulin, Cardizem)? @ -No Were any procedures done? @ -No Diagnosis/symptom? @ -Chest pain Acute, or Chronic, or Acute on Chronic? @ -Acute Uncomplicated (without systemic symptoms) or Complicated (systemic symptoms)? @ -default Side effects of treatment? @ -No Exacerbation, Progression, or Severe Exacerbation? @ -No Poses a threat to life or bodily function? How? (Chest pain, USA, [place], pneumonia, PE, COPD, DKA, ARF, appy, cholecystitis, CVA, Diverticulitis, Homicidal, Suicidal, threat to staff... and all critical care pts) @ -No Diagnosis/symptom? @ -GI bleed Acute, or Chronic, or Acute on Chronic? @ -Acute Uncomplicated (without systemic symptoms) or Complicated (systemic symptoms)? @ -default Side effects of treatment? @ -none Exacerbation, Progression, or Severe Exacerbation] @ -no Poses a threat to life or bodily function? @ -Possibly, although patient is currently stable with a normal hemoglobin. - Lab Data Result diagrams: 06/20/22 18:24 06/20/22 18:24 Lab Results 06/20/22 06/20/22 06/20/22 Range/Units 18:24 18:24 18:24 WBC 15.6 H (3.8-10.6) k/uL RBC 5.03 (3.80-5.40) m/uL Hgb 12.9 (11.4-16.0) gm/dL Hct 39.7 (34.0-46.0) % MCV 78.8 L (80.0-100.0) fL MCH 25.7 (25.0-35.0) pg MCHC 32.6 (31.0-37.0) g/dL RDW 15.9 H (11.5-15.5) % Plt Count 401 (150-450) k/uL MPV 6.9 Neutrophils % 67 % Lymphocytes % 26 % Monocytes % 4 % Eosinophils % 2 % Basophils % 0 % Neutrophils # 10.5 H (1.3-7.7) k/uL Lymphocytes # 4.0 (1.0-4.8) k/uL Monocytes # 0.6 (0-1.0) k/uL Eosinophils # 0.2 (0-0.7) k/uL Basophils # 0.0 (0-0.2) k/uL PT 9.4 (9.0-12.0) sec INR 0.9 (<1.2) APTT 24.0 (22.0-30.0) sec D-Dimer 0.38 (<0.60) mg/L FEU Sodium 138 (137-145) mmol/L Potassium 4.0 (3.5-5.1) mmol/L Chloride 102 (98-107) mmol/L Carbon Dioxide 25 (22-30) mmol/L Anion Gap 11 mmol/L BUN 9 (7-17) mg/dL Creatinine 0.69 (0.52-1.04) mg/dL Est GFR (CKD-EPI)AfAm >90 (>60 ml/min/1.73 sqM) Est GFR (CKD-EPI)NonAf >90 (>60 ml/min/1.73 sqM) Glucose 112 H (74-99) mg/dL Calcium 9.5 (8.4-10.2) mg/dL Magnesium 1.9 (1.6-2.3) mg/dL Total Bilirubin 0.2 (0.2-1.3) mg/dL AST 19 (14-36) U/L ALT 25 (4-34) U/L Alkaline Phosphatase 95 (38-126) U/L Troponin I (0.000-0.034) ng/mL NT-Pro-B Natriuret Pep pg/mL Total Protein 7.1 (6.3-8.2) g/dL Albumin 4.0 (3.5-5.0) g/dL Lipase 385 H (23-300) U/L Stool Occult Blood (Negative) 06/20/22 06/20/22 06/20/22 Range/Units 18:24 18:24 18:24 WBC (3.8-10.6) k/uL RBC (3.80-5.40) m/uL Hgb (11.4-16.0) gm/dL Hct (34.0-46.0) % MCV (80.0-100.0) fL MCH (25.0-35.0) pg MCHC (31.0-37.0) g/dL RDW (11.5-15.5) % Plt Count (150-450) k/uL MPV Neutrophils % % Lymphocytes % % Monocytes % % Eosinophils % % Basophils % % Neutrophils # (1.3-7.7) k/uL Lymphocytes # (1.0-4.8) k/uL Monocytes # (0-1.0) k/uL Eosinophils # (0-0.7) k/uL Basophils # (0-0.2) k/uL PT (9.0-12.0) sec INR (<1.2) APTT (22.0-30.0) sec D-Dimer (<0.60) mg/L FEU Sodium (137-145) mmol/L Potassium (3.5-5.1) mmol/L Chloride (98-107) mmol/L Carbon Dioxide (22-30) mmol/L Anion Gap mmol/L BUN (7-17) mg/dL Creatinine (0.52-1.04) mg/dL Est GFR (CKD-EPI)AfAm (>60 ml/min/1.73 sqM) Est GFR (CKD-EPI)NonAf (>60 ml/min/1.73 sqM) Glucose (74-99) mg/dL Calcium (8.4-10.2) mg/dL Magnesium (1.6-2.3) mg/dL Total Bilirubin (0.2-1.3) mg/dL AST (14-36) U/L ALT (4-34) U/L Alkaline Phosphatase (38-126) U/L Troponin I <0.012 (0.000-0.034) ng/mL NT-Pro-B Natriuret Pep 25 pg/mL Total Protein (6.3-8.2) g/dL Albumin (3.5-5.0) g/dL Lipase (23-300) U/L Stool Occult Blood Positive H (Negative) - Radiology Data Chest x-ray: No acute cardiopulmonary disease/process. Disposition Clinical Impression: Chest pain, GI bleed Disposition: OTHER INSTITUTION NOT DEFINED Condition: Stable Is patient prescribed a controlled substance at d/c from ED?: No Referrals: Francesco Wood MD [Primary Care Provider] - 1-2 days Time of Disposition: 19:57 - Out of Hospital Transfer - Req. Specs Out of Hospital Transfer - Requested Specifics: Other Emergency Center ([facility] ED)
[2022-06-20] MEDS ORDERED: SODIUM CHLORIDE 0.9% 500 ML 500 ML IV STA (18:11)
[2022-06-20] MEDS ORDERED: NITROGLYCERIN SL TABS 0.4 MG TAB SUBLINGUAL STA (18:21)
[2022-06-20] MEDS ORDERED: MORPHINE SULFATE 4 MG/ML SYRINGE IVP STA (18:21)
[2022-06-20 18:40] LABS: Basophils % (A) 0 %; Eosinophils # (A) 0.2 k/uL (0-0.7); Eosinophils % (A) 2 %; HCT 39.7 % (34.0-46.0); HGB 12.9 gm/dL (11.4-16.0); Lymphocytes % (A) 26 %; MCH 25.7 pg (25.0-35.0); MCHC 32.6 g/dL (31.0-37.0); MCV 78.8 fL (80.0-100.0); Mean Platelet Volume 6.9; Monocytes # (A) 0.6 k/uL (0-1.0); Monocytes % (A) 4 %; Neutrophils # (A) 10.5 k/uL (1.3-7.7); Neutrophils % (A) 67 %; Platelet Count 401 k/uL (150-450); RBC 5.03 m/uL (3.80-5.40); RDW 15.9 % (11.5-15.5); WBC 15.6 k/uL (3.8-10.6)
[2022-06-20 18:53] LABS: ALT 25 U/L (4-34); AST 19 U/L (14-36); African American GFR (CKD) >90 (>60 ml/min/1.73 sqM); Alkaline Phosphatase 95 U/L (38-126); Anion Gap 11 mmol/L; Blood Urea Nitrogen 9 mg/dL (7-17); Calcium 9.5 mg/dL (8.4-10.2); Carbon Dioxide 25 mmol/L (22-30); Chloride 102 mmol/L (98-107); Glucose 112 mg/dL (74-99); Lipase 385 U/L (23-300); Magnesium 1.9 mg/dL (1.6-2.3); Non-African American GFR(CKD) >90 (>60 ml/min/1.73 sqM); Sodium 138 mmol/L (137-145); Total Bilirubin 0.2 mg/dL (0.2-1.3); Total Protein 7.1 g/dL (6.3-8.2)
[2022-06-20 19:00] LABS: INR 0.9 (<1.2); Prothrombin Time 9.4 sec (9.0-12.0)
[2022-06-20] MEDS ORDERED: PANTOPRAZOLE 40 MG/10 ML VIAL IVP STA (19:00)
--- NOTE | 2022-06-20 19:04 | XR ---
EXAMINATION TYPE: XR chest 2V DATE OF EXAM: 06/20/2022 6:43 PM COMPARISON: Chest radiographs from 08/15/2020. TECHNIQUE: XR chest 2V Frontal and lateral views of the chest. CLINICAL INDICATION:Female, 51 years old with history of Chest Pain; FINDINGS: Lungs/Pleura: There is no evidence of pleural effusion, focal consolidation, or pneumothorax. Pulmonary vascularity: Unremarkable. Heart/mediastinum: Cardiomediastinal silhouette is unremarkable. Musculoskeletal: No acute osseous pathology. IMPRESSION: No acute cardiopulmonary disease/process.
[2022-06-20] MEDS ORDERED: LORazepam 2 MG/ML INJ IV STA (19:14)
[2022-06-20 19:17] VITALS: RESP 16
[2022-06-20 20:46] VITALS: BP 128/70; PULSE 80
== END 2022-06-20 20:50 | disposition other institution (70) ==
LOC: EC 17:47
DX: R07.89 Other chest pain (principal); K92.2 Gastrointestinal hemorrhage, unspecified; J44.9 Chronic obstructive pulmonary disease, unspecified; E11.9 Type 2 diabetes mellitus without complications; I10 Essential (primary) hypertension; F17.200 Nicotine dependence, unspecified, uncomplicated; Z86.16 Personal history of COVID-19; Z79.84 Long term (current) use of oral hypoglycemic drugs; Z79.899 Other long term (current) drug therapy
CPT/HCPCS: 36415; 93005; 85379; 83880; 80053; 83690; 83735; 84484; 85025; 85610; 85730; 82272; 71046; 99285; 96374; 96375; 96361 ×2; J2270; C9113

== ENCOUNTER 2022-09-02 14:17 | Emergency (ER) | payer OTHER ==
[2022-09-02] MEDS ORDERED: PANTOPRAZOLE 40 MG/10 ML VIAL IVP STA (16:04)
[2022-09-02 16:29] LABS: Basophils % (A) 0 %; Eosinophils # (A) 0.3 k/uL (0-0.7); Eosinophils % (A) 2 %; HCT 40.8 % (34.0-46.0); HGB 12.6 gm/dL (11.4-16.0); Hypochromasia Slight; Lymphocytes # (A) 2.6 k/uL (1.0-4.8); Lymphocytes % (A) 19 %; MCH 25.1 pg (25.0-35.0); MCV 81.1 fL (80.0-100.0); Mean Platelet Volume 6.8; Monocytes # (A) 0.5 k/uL (0-1.0); Monocytes % (A) 4 %; Neutrophils # (A) 10.1 k/uL (1.3-7.7); Neutrophils % (A) 74 %; Platelet Count 489 k/uL (150-450); RBC 5.03 m/uL (3.80-5.40); WBC 13.7 k/uL (3.8-10.6)
[2022-09-02 16:45] LABS: ALT 19 U/L (4-34); African American GFR (CKD) >90 (>60 ml/min/1.73 sqM); Albumin 4.5 g/dL (3.5-5.0); Amylase 48 U/L (30-110); Anion Gap 13 mmol/L; Blood Urea Nitrogen 14 mg/dL (7-17); Calcium 9.8 mg/dL (8.4-10.2); Carbon Dioxide 21 mmol/L (22-30); Chloride 106 mmol/L (98-107); Glucose 83 mg/dL (74-99); Lipase 253 U/L (23-300); Non-African American GFR(CKD) >90 (>60 ml/min/1.73 sqM); Sodium 140 mmol/L (137-145); Total Bilirubin 0.5 mg/dL (0.2-1.3); Total Protein 8.2 g/dL (6.3-8.2)
[2022-09-02 16:52] LABS: AST 27 U/L (14-36); Alkaline Phosphatase 99 U/L (38-126); Potassium 4.6 mmol/L (3.5-5.1)
[2022-09-02 17:01] VITALS: RESP 18
[2022-09-02 17:06] LABS: Appearance,Urine Clear (Clear); Bilirubin,Urine Negative (Negative); Blood,Urine Negative (Negative); Color,Urine Yellow; Glucose,Urine (UA) Negative (Negative); Ketones,Urine Negative (Negative); Leukocyte Esterase,Urine Negative (Negative); Nitrite,Urine Negative (Negative); Protein,Urine Trace (Negative); Specific Gravity,Urine 1.026 (1.001-1.035)
--- NOTE | 2022-09-02 18:09 | ED ---
General Adult HPI - General Chief complaint: Abdominal Pain Stated complaint: Pain Left Side stomach Time Seen by Provider: 09/02/22 15:45 Source: patient, RN notes reviewed Mode of arrival: ambulatory Limitations: no limitations - History of Present Illness Initial comments: 52-year-old female presents emergency department chief complaint of abdominal pain x3 days. She reports history of bleeding gastric ulcer back in June. She reports that she was on Protonix for 30 days back in June but is no longer on it. She reports at that time that she was having dark stool but is not having any at this time. Denies blood in stool. Denies nausea, vomiting, fever, chills. - Related Data Home Medications Medication Instructions Recorded Confirmed sitaGLIPtin PHOS/metFORMIN HCL 1 tab PO DAILY 09/29/21 09/02/22 [Janumet 50-500 mg Tablet] Atorvastatin [Lipitor] 10 mg PO HS 06/20/22 09/02/22 Ergocalciferol (Vitamin D2) 1,250 mcg PO Q7D 06/20/22 09/02/22 [Drisdol (50,000 Iu)] Losartan Potassium [Cozaar] 100 mg PO DAILY 06/20/22 09/02/22 amLODIPine [Norvasc] 10 mg PO W/SUPPER 06/20/22 09/02/22 Albuterol Sulfate [Albuterol 2 puff PO RT-QID PRN 09/02/22 09/02/22 Sulfate Hfa] hydrALAZINE HCL [Apresoline] 25 mg PO TID 09/02/22 09/02/22 Previous Rx's Medication Instructions Recorded Pantoprazole [Protonix] 40 mg PO DAILY #14 tab 09/02/22 Allergies Allergy/AdvReac Type Severity Reaction Status Date / Time No Known Allergies Allergy Verified 09/02/22 16:48 Review of Systems ROS Statement: Those systems with pertinent positive or pertinent negative responses have been documented in the HPI. ROS Other: All systems not noted in ROS Statement are negative. Past Medical History Past Medical History: COPD, Diabetes Mellitus, GERD/Reflux, Hypertension Additional Past Medical History / Comment(s): Covid + 06/19/20, abdominal pain, loose stools, History of Any Multi-Drug Resistant Organisms: None Reported Past Surgical History: Section Additional Past Surgical History / Comment(s): L axillary boil removed Past Anesthesia/Blood Transfusion Reactions: No Reported Reaction Past Psychological History: No Psychological Hx Reported Smoking Status: Current every day smoker Past Alcohol Use History: None Reported Past Drug Use History: Marijuana - Past Family History Father Additional Family Medical History / Comment(s): Father drowned. Mother Family Medical History: Cancer Additional Family Medical History / Comment(s): Mother had pancreatic cancer. General Exam Limitations: no limitations General appearance: alert, in no apparent distress Head exam: Present: atraumatic, normocephalic, normal inspection Eye exam: Present: normal appearance, PERRL, EOMI. Absent: scleral icterus, conjunctival injection, periorbital swelling ENT exam: Present: normal exam, mucous membranes moist Neck exam: Present: normal inspection. Absent: tenderness, meningismus, lymphadenopathy Respiratory exam: Present: normal lung sounds bilaterally. Absent: respiratory distress, wheezes, rales, rhonchi, stridor Cardiovascular Exam: Present: regular rate, normal rhythm, normal heart sounds. Absent: systolic murmur, diastolic murmur, rubs, gallop, clicks GI/Abdominal exam: Present: soft, normal bowel sounds. Absent: distended, tenderness, guarding, rebound, rigid Extremities exam: Present: normal inspection, full ROM, normal capillary refill. Absent: tenderness, pedal edema, joint swelling, calf tenderness Back exam: Present: normal inspection Neurological exam: Present: alert, oriented X3, CN II-XII intact Psychiatric exam: Present: normal affect, normal mood Skin exam: Present: warm, dry, intact, normal color. Absent: rash Course Vital Signs 09/02/22 09/02/22 09/02/22 15:36 16:56 18:23 Temperature 98.0 F 98.2 F Pulse Rate 93 88 86 Respiratory 20 18 18 Rate Blood Pressure 114/80 113/72 118/76 O2 Sat by Pulse 98 99 97 Oximetry Medical Decision Making - Medical Decision Making Was pt. sent in by a medical professional or institution (ZULEMA Godwin, EDUCATIONAL SPECIALIST, urgent care, hospital, or [facility]...) When possible be specific @ -No Did you speak to anyone other than the patient for history (EMS, parent, family, police, friend...)? What history was obtained from this source @ -No Did you review nursing and triage notes (agree or disagree)? Why? @ -I reviewed and agree with nursing and triage notes Were old charts reviewed (outside hosp., previous admission, EMS record, old EKG, old radiological studies, urgent care reports/EKG's, [facility] records)? Report findings @ -Laboratory studies and reports from prior hospital visit in June were reviewed Differential Diagnosis (chest pain, altered mental status, abdominal pain women, abdominal pain men, vaginal bleeding, weakness, fever, dyspnea, syncope, headache, dizziness, GI bleed, back pain, seizure, CVA, palpatations, mental health, musculoskeletal)? @ -Differential Abdominal Pain Women: Appendicitis, Cholecystitis, diverticulosis, ischemic bowel, pancreatitis, hepatitis, UTI, gastroenteritis, AAA, incarcerated hernia, bowel obstruction, constipation, inflammatory bowel, hepatitis, peptic ulcer disease, splenic i nfarction, perforated viscus, vulvitis, ovarian torsion, PID, kidney stone, placenta abruption, this is not meant to be an all-inclusive list EKG interpreted by me (3pts min.). @ -None X-rays interpreted by me (1pt min.). @ -None done CT interpreted by me (1pt min.). @ -None done U/S interpreted by me (1pt. min.). @ -None done What testing was considered but not performed or refused? (CT, X-rays, U/S, labs)? Why? @ -None What meds were considered but not given or refused? Why? @ -None Did you discuss the management of the patient with other professionals (professionals i.e. , PA, EDUCATIONAL SPECIALIST, lab, RT, psych nurse, social media campaign manager, day haul or farm charter bus driver, teacher, facility security officer, case management manager)? Give summary @ -No Was smoking cessation discussed for >3mins.? @ -No Was critical care preformed (if so, how long)? @ -No Were there social determinants of health that impacted care today? How? (Homelessness, low income, unemployed, alcoholism, drug addiction, transportation, low edu. Level, literacy, decrease access to med. care, residential, rehab)? @ -No Was there de-escalation of care discussed even if they declined (Discuss DNR or withdrawal of care, Hospice)? DNR status @ -No What co-morbidities impacted this encounter? (DM, HTN, Smoking, COPD, CAD, Cancer, CVA, ARF, Chemo, Hep., AIDS, mental health diagnosis, sleep apnea, morbid obesity)? @ -None Was patient admitted / discharged? Hospital course, mention meds given and route, prescriptions, significant lab abnormalities, going to OR and other pertinent info. @ -Discharged. Patient presented to emergency department chief complaint of abdominal pain 3 days. CBC showed WBC 13.7, hemoglobin 12.6, hematocrit 40.8; CMP showed sodium 140, potassium 4.6, chloride 106, creatinine 0.73, BUN 14; UA is negative. Patient was given 40 mg IV Protonix and reports improvement in her symptoms. Prescription was sent to patients pharmacy for protonix and patient advised to follow up with her GI Dr. Patient discharged in stable condition. Case discussed with my attending, Dr. Silvestre Undiagnosed new problem with uncertain prognosis? @ -No Drug Therapy requiring intensive monitoring for toxicity (Heparin, Nitro, I nsulin, Cardizem)? @ -No Were any procedures done? @ -No Diagnosis/symptom? @ -gastritis Acute, or Chronic, or Acute on Chronic? @ -Acute Uncomplicated (without systemic symptoms) or Complicated (systemic symptoms)? @ -uncomplicated Side effects of treatment? @ -No Exacerbation, Progression, or Severe Exacerbation? @ -No Poses a threat to life or bodily function? How? (Chest pain, [place], [place], pneumonia, PE, COPD, DKA, ARF, appy, cholecystitis, CVA, Diverticulitis, Homicidal, Suicidal, threat to staff... and all critical care pts) @ -No - Lab Data Result diagrams: 09/02/22 16:10 09/02/22 16:10 Lab Results 09/02/22 09/02/22 09/02/22 Range/Units 16:10 16:10 16:10 WBC 13.7 H (3.8-10.6) k/uL RBC 5.03 (3.80-5.40) m/uL Hgb 12.6 (11.4-16.0) gm/dL Hct 40.8 (34.0-46.0) % MCV 81.1 (80.0-100.0) fL MCH 25.1 (25.0-35.0) pg MCHC 31.0 (31.0-37.0) g/dL RDW 16.0 H (11.5-15.5) % Plt Count 489 H (150-450) k/uL MPV 6.8 Neutrophils % 74 % Lymphocytes % 19 % Monocytes % 4 % Eosinophils % 2 % Basophils % 0 % Neutrophils # 10.1 H (1.3-7.7) k/uL Lymphocytes # 2.6 (1.0-4.8) k/uL Monocytes # 0.5 (0-1.0) k/uL Eosinophils # 0.3 (0-0.7) k/uL Basophils # 0.0 (0-0.2) k/uL Hypochromasia Slight Sodium 140 (137-145) mmol/L Potassium 4.6 (3.5-5.1) mmol/L Chloride 106 (98-107) mmol/L Carbon Dioxide 21 L (22-30) mmol/L Anion Gap 13 mmol/L BUN 14 (7-17) mg/dL Creatinine 0.73 (0.52-1.04) mg/dL Est GFR (CKD-EPI)AfAm >90 (>60 ml/min/1.73 sqM) Est GFR (CKD-EPI)NonAf >90 (>60 ml/min/1.73 sqM) Glucose 83 (74-99) mg/dL Calcium 9.8 (8.4-10.2) mg/dL Total Bilirubin 0.5 (0.2-1.3) mg/dL AST 27 (14-36) U/L ALT 19 (4-34) U/L Alkaline Phosphatase 99 (38-126) U/L Total Protein 8.2 (6.3-8.2) g/dL Albumin 4.5 (3.5-5.0) g/dL Amylase 48 (30-110) U/L Lipase 253 (23-300) U/L Urine Color Yellow Urine Appearance Clear (Clear) Urine pH 5.0 (5.0-8.0) Ur Specific [place] 1.026 (1.001-1.035) Urine Protein Trace H (Negative) Urine Glucose (UA) Negative (Negative) Urine Ketones Negative (Negative) Urine Blood Negative (Negative) Urine Nitrite Negative (Negative) Urine Bilirubin Negative (Negative) Urine Urobilinogen 2.0 (<2.0) mg/dL Ur Leukocyte Esterase Negative (Negative) Disposition Clinical Impression: Gastritis Disposition: HOME SELF-CARE Condition: Stable Additional Instructions: Please return to the emergency department for new or worsening symptoms. Prescriptions: Pantoprazole [Protonix] 40 mg PO DAILY #14 tab Is patient prescribed a controlled substance at d/c from ED?: No Referrals: Francesco Wood MD [Primary Care Provider] - 1-2 days Time of Disposition: 18:09
[2022-09-02 18:26] VITALS: BP 118/76; PULSE 86; TEMP 98.2
== END 2022-09-02 18:32 | disposition home or self-care (01) ==
LOC: EC 14:17
DX: K29.70 Gastritis, unspecified, without bleeding (principal); J44.9 Chronic obstructive pulmonary disease, unspecified; E11.9 Type 2 diabetes mellitus without complications; K21.9 Gastro-esophageal reflux disease without esophagitis; I10 Essential (primary) hypertension; F17.200 Nicotine dependence, unspecified, uncomplicated; F12.90 Cannabis use, unspecified, uncomplicated; Z79.899 Other long term (current) drug therapy; Z79.84 Long term (current) use of oral hypoglycemic drugs
CPT/HCPCS: 99284 ×2; 96374 ×2; 36415; 80053; 82150; 83690; 85025; 81003; C9113

== ENCOUNTER 2022-10-08 09:45 | Emergency (ER) | payer OTHER ==
[2022-10-08 09:56] VITALS: RESP 18
[2022-10-08] MEDS ORDERED: MORPHINE SULFATE 4 MG/ML SYRINGE IVP STA (10:09)
--- NOTE | 2022-10-08 10:16 | ED ---
Abdominal Pain HPI - General Chief Complaint: Abdominal Pain Stated Complaint: Abd/L Side Rib Pain Time Seen by Provider: 10/08/22 10:08 Source: patient, RN notes reviewed Mode of arrival: ambulatory Limitations: no limitations - History of Present Illness Initial Comments: Patient is a 52-year-old -[place] female presenting to the emergency room with complaints of upper abdominal pain which has been ongoing for some time but intensified yesterday and became severe this morning. She reports that in June she had pain similar to this but also had tarry stools and was diagnosed with gastrointestinal bleeding in which she was transferred to [facility] and underwent EGD with treatment for gastric ulcer since that time she has been on Protonix 40 mg twice a day. She reports that the pain is similar but not the same as that event. She reports some nausea without any vomiting. She reports diarrhea with no blood or mucus in her stool. As stated above she has no tarry or melanotic stool. She denies any other complaints or concerns at this time including any chest pain, shortness of breath, lower abdominal pain, dysuria, hematuria, urinary frequency, fevers or chills. In addition to her history of gastric ulcer/GI bleed she has a past medical history significant for diabetes, hypertension, and COPD. - Related Data Home Medications Medication Instructions Recorded Confirmed sitaGLIPtin PHOS/metFORMIN HCL 1 tab PO DAILY 09/29/21 10/08/22 [Janumet 50-500 mg Tablet] Atorvastatin [Lipitor] 10 mg PO HS 06/20/22 10/08/22 Losartan Potassium [Cozaar] 100 mg PO DAILY 06/20/22 10/08/22 amLODIPine [Norvasc] 10 mg PO W/SUPPER 06/20/22 10/08/22 Albuterol Sulfate [Albuterol 2 puff PO RT-QID PRN 09/02/22 10/08/22 Sulfate Hfa] hydrALAZINE HCL [Apresoline] 25 mg PO TID 09/02/22 10/08/22 Pantoprazole [Protonix] 40 mg PO BID 10/08/22 10/08/22 Previous Rx's Medication Instructions Recorded Ondansetron Odt [Zofran Odt] 4 mg PO Q8HR PRN 7 Days #21 tab 10/08/22 Allergies Allergy/AdvReac Type Severity Reaction Status Date / Time No Known Allergies Allergy Verified 10/08/22 10:42 Review of Systems ROS Statement: Those systems with pertinent positive or pertinent negative responses have been documented in the HPI. ROS Other: All systems not noted in ROS Statement are negative. Past Medical History Past Medical History: COPD, Diabetes Mellitus, GERD/Reflux, Hypertension Additional Past Medical History / Comment(s): Covid + 06/19/20, abdominal pain, loose stools, History of Any Multi-Drug Resistant Organisms: None Reported Past Surgical History: Section Additional Past Surgical History / Comment(s): L axillary boil removed Past Anesthesia/Blood Transfusion Reactions: No Reported Reaction Past Psychological History: No Psychological Hx Reported Smoking Status: Current every day smoker Past Alcohol Use History: None Reported Past Drug Use History: Marijuana - Past Family History Father Additional Family Medical History / Comment(s): Father drowned. Mother Family Medical History: Cancer Additional Family Medical History / Comment(s): Mother had pancreatic cancer. General Exam Limitations: no limitations General appearance: alert, in no apparent distress Head exam: Present: atraumatic, normocephalic, normal inspection Eye exam: Present: normal appearance, PERRL, EOMI. Absent: scleral icterus, conjunctival injection, periorbital swelling ENT exam: Present: normal exam, mucous membranes moist Neck exam: Present: normal inspection. Absent: tenderness, meningismus, lymphadenopathy Respiratory exam: Present: normal lung sounds bilaterally. Absent: respiratory distress, wheezes, rales, rhonchi, stridor Cardiovascular Exam: Present: regular rate, normal rhythm, normal heart sounds. Absent: systolic murmur, diastolic murmur, rubs, gallop, clicks GI/Abdominal exam: Present: soft, normal bowel sounds, other (Upper right and epigastric pain without tenderness or increased pain with palpation.). Absent: distended, tenderness, guarding, rebound, rigid Rectal exam: Present: normal inspection, normal rectal tone. Absent: black stool, bloody stool, fecal impaction, mass, tenderness Extremities exam: Present: normal inspection. Absent: pedal edema, joint swelling Back exam: Present: normal inspection, full ROM Neurological exam: Present: alert, oriented X3, CN II-XII intact, normal gait Psychiatric exam: Present: normal affect, normal mood Skin exam: Present: warm, dry, intact, normal color. Absent: rash Course Vital Signs 10/08/22 10/08/22 10/08/22 09:51 11:49 12:00 Temperature 98 F 97.9 F Pulse Rate 90 83 Respiratory 18 18 Rate Blood Pressure 118/79 109/69 109/69 O2 Sat by Pulse 99 94 L Oximetry 10/08/22 13:00 Temperature 97.9 F Pulse Rate 78 Respiratory 18 Rate Blood Pressure 116/82 O2 Sat by Pulse 94 L Oximetry Medical Decision Making - Medical Decision Making Was pt. sent in by a medical professional or institution (, PA, SAND CONDITIONER MACHINE, urgent care, hospital, or prison...) When possible be specific @ -No Did you speak to anyone other than the patient for history (EMS, parent, family, police, friend...)? What history was obtained from this source @ -No Did you review nursing and triage notes (agree or disagree)? Why? @ -I reviewed and agree with nursing and triage notes Were old charts reviewed (outside hosp., previous admission, EMS record, old EK G, old radiological studies, urgent care reports/EKG's, prison records)? Report findings @ -S, I reviewed EGD and colonoscopy completed at this facility in September [address] Olivo which revealed mild antral gastritis and duodenitis along with a colonoscopy within normal limits. Differential Diagnosis (chest pain, altered mental status, abdominal pain women, abdominal pain men, vaginal bleeding, weakness, fever, dyspnea, syncope, headache, dizziness, GI bleed, back pain, seizure, CVA, palpatations, mental health, musculoskeletal)? @ -Differential Abdominal Pain Women: Appendicitis, Cholecystitis, diverticulosis, ischemic bowel, pancreatitis, hepatitis, UTI, gastroenteritis, AAA, incarcerated hernia, bowel obstruction, constipation, inflammatory bowel, hepatitis, peptic ulcer disease, splenic infarction, perforated viscus, vulvitis, ovarian torsion, PID, kidney stone, placenta abruption, this is not meant to be an all-inclusive list EKG interpreted by me (3pts min.). @ -None done X-rays interpreted by me (1pt min.). @ -None done CT interpreted by me (1pt min.). @ -CT abdomen and pelvis with contrast: No evidence of free air, free fluid or obstruction. Hepatomegaly noted. Per radiologist mildly enlarged lymph node in the right lower quadrant mesentery measuring up to 1.7 cm which is likely reactive/postinflammatory. U/S interpreted by me (1pt. min.). @ -None done What testing was considered but not performed or refused? (CT, X-rays, U/S, labs)? Why? @ -None What meds were considered but not given or refused? Why? @ -None Did you discuss the management of the patient with other professionals (professionals i.e. Dr., PA, SAND CONDITIONER MACHINE, lab, RT, psych nurse, social professionals, training consultant, teacher, restoration officer, transplant case manager)? Give summary @ -No Was smoking cessation discussed for >3mins.? @ -No Was critical care preformed (if so, how long)? @ -No Were there social determinants of health that impacted care today? How? (Homelessness, low income, unemployed, alcoholism, drug addiction, transportation, low edu. Level, literacy, decrease access to med. care, fci, re hab)? @ -No Was there de-escalation of care discussed even if they declined (Discuss DNR or withdrawal of care, Hospice)? DNR status @ -No What co-morbidities impacted this encounter? (DM, HTN, Smoking, COPD, CAD, Cancer, CVA, ARF, Chemo, Hep., AIDS, mental health diagnosis, sleep apnea, morbid obesity)? @ -None Was patient admitted / discharged? Hospital course, mention meds given and route, prescriptions, significant lab abnormalities, going to OR and other pertinent info. @ -51-year-old -[place] female presenting to the emergency room with acute on chronic upper abdominal/epigastric region with nausea without vomiting. History of GI bleeding currently on Protonix twice a day. Will start workup for abdominal pain and woman with laboratory studies of CBC, CMP, amylase, lipase, lactic acid, PT INR will obtain stool for occult blood along with CT abdomen and pelvis with contrast. Will give morphine for pain at this time and monitor response. Pain improved with morphine however she developed nausea will give Zofran. Laboratory studies reveal slightly elevated RDW at 15.7 and moderate hypochromia some otherwise no abnormalities on CBC. Coags normal, CMP was high chloride at 108 and low carbon dioxide at 20 no other electrolyte abnormalities. Normal renal and liver function. Alkaline phosphatase, amylase and lipase all normal. Stool for occult blood negative. CT of the abdomen with hepatomegaly and right lower quadrant lymph node enlargement likely reactive/postinflammatory. No other acute process. Nausea improved after Zofran. Pain remained stable. No indication for further diagnostic imaging or laboratory studies at this time. Above findings discussed with patient. Encouraged continued good hydration. Will give Zofran to utilize for nausea and vomiting. Question significant concerns answered. Return parameters to emergency room discussed. Will discharge home in stable condition with Zofran ODT to utilize for nausea and vomiting along with good hydration and Tylenol or Motrin [id number] as needed for abdominal pain advising follow-up with primary care provider. Undiagnosed new problem with uncertain prognosis? @ -No Drug Therapy requiring intensive monitoring for toxicity (Heparin, Nitro, Insulin, Cardizem)? @ -No Were any procedures done? @ -No Diagnosis/symptom? @ -Abdominal pain Acute, or Chronic, or Acute on Chronic? @ -Acute on chronic Uncomplicated (without systemic symptoms) or Complicated (systemic symptoms)? @ -Uncomplicated Side effects of treatment? @ -No Exacerbation, Progression, or Severe Exacerbation? @ -No Poses a threat to life or bodily function? How? (Chest pain, [place], [place], pneumonia, PE, COPD, DKA, ARF, appy, cholecystitis, CVA, Diverticulitis, Homicidal, Suicidal, threat to staff... and all critical care pts) @ -No Diagnosis/symptom? @ -Nausea and vomiting Acute, or Chronic, or Acute on Chronic? @ -Acute Uncomplicated (without systemic symptoms) or Complicated (systemic symptoms)? @ -Uncomplicated Side effects of treatment? @ -none Exacerbation, Progression, or Severe Exacerbation] @ -no Poses a threat to life or bodily function? @ -no case discussed with Dr. Silvestre. - Lab Data Result diagrams: 10/08/22 10:36 10/08/22 10:36 Lab Results 10/08/22 10/08/22 10/08/22 Range/Units 10:36 10:36 10:36 WBC 9.8 (3.8-10.6) k/uL RBC 4.92 (3.80-5.40) m/uL Hgb 12.4 (11.4-16.0) gm/dL Hct 39.5 (34.0-46.0) % MCV 80.2 (80.0-100.0) fL MCH 25.3 (25.0-35.0) pg MCHC 31.5 (31.0-37.0) g/dL RDW 15.7 H (11.5-15.5) % Plt Count 429 (150-450) k/uL MPV 6.8 Neutrophils % 70 % Lymphocytes % 24 % Monocytes % 3 % Eosinophils % 2 % Basophils % 0 % Neutrophils # 6.9 (1.3-7.7) k/uL Lymphocytes # 2.3 (1.0-4.8) k/uL Monocytes # 0.3 (0-1.0) k/uL Eosinophils # 0.2 (0-0.7) k/uL Basophils # 0.0 (0-0.2) k/uL Hypochromasia Moderate PT 9.8 (9.0-12.0) sec INR 0.9 (<1.2) APTT 24.2 (22.0-30.0) sec Sodium 139 (137-145) mmol/L Potassium 4.5 (3.5-5.1) mmol/L Chloride 108 H (98-107) mmol/L Carbon Dioxide 20 L (22-30) mmol/L Anion Gap 11 mmol/L BUN 10 (7-17) mg/dL Creatinine 0.72 (0.52-1.04) mg/dL Est GFR (CKD-EPI)AfAm >90 (>60 ml/min/1.73 sqM) Est GFR (CKD-EPI)NonAf >90 (>60 ml/min/1.73 sqM) Glucose 97 (74-99) mg/dL Plasma Lactic Acid Asher (0.7-2.0) mmol/L Calcium 9.4 (8.4-10.2) mg/dL Total Bilirubin 0.5 (0.2-1.3) mg/dL AST 25 (14-36) U/L ALT 21 (4-34) U/L Alkaline Phosphatase 95 (38-126) U/L Total Protein 7.7 (6.3-8.2) g/dL Albumin 4.2 (3.5-5.0) g/dL Amylase 48 (30-110) U/L Lipase 271 (23-300) U/L Stool Occult Blood (Negative) 10/08/22 10/08/22 Range/Units 10:36 11:49 WBC (3.8-10.6) k/uL RBC (3.80-5.40) m/uL Hgb (11.4-16.0) gm/dL Hct (34.0-46.0) % MCV (80.0-100.0) fL MCH (25.0-35.0) pg MCHC (31.0-37.0) g/dL RDW (11.5-15.5) % Plt Count (150-450) k/uL MPV Neutrophils % % Lymphocytes % % Monocytes % % Eosinophils % % Basophils % % Neutrophils # (1.3-7.7) k/uL Lymphocytes # (1.0-4.8) k/uL Monocytes # (0-1.0) k/uL Eosinophils # (0-0.7) k/uL Basophils # (0-0.2) k/uL Hypochromasia PT (9.0-12.0) sec INR (<1.2) APTT (22.0-30.0) sec Sodium (137-145) mmol/L Potassium (3.5-5.1) mmol/L Chloride (98-107) mmol/L Carbon Dioxide (22-30) mmol/L Anion Gap mmol/L BUN (7-17) mg/dL Creatinine (0.52-1.04) mg/dL Est GFR (CKD-EPI)AfAm (>60 ml/min/1.73 sqM) Est GFR (CKD-EPI)NonAf (>60 ml/min/1.73 sqM) Glucose (74-99) mg/dL Plasma Lactic Acid Asher 1.9 (0.7-2.0) mmol/L Calcium (8.4-10.2) mg/dL Total Bilirubin (0.2-1.3) mg/dL AST (14-36) U/L ALT (4-34) U/L Alkaline Phosphatase (38-126) U/L Total Protein (6.3-8.2) g/dL Albumin (3.5-5.0) g/dL Amylase (30-110) U/L Lipase (23-300) U/L Stool Occult Blood Negative (Negative) - Radiology Data Radiology results: report reviewed, image reviewed Disposition Clinical Impression: Abdominal pain, Nausea without vomiting Disposition: HOME SELF-CARE Condition: Stable Instructions (If sedation given, give patient instructions): Abdominal Pain (ED) Additional Instructions: Please utilize Zofran prescription as needed for nausea and vomiting. Please continue your Protonix as prescribed. Gastrointestinal provider. 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 Please return to the Emergency Department if symptoms worsen or any other concerns. Prescriptions: Ondansetron Odt [Zofran Odt] 4 mg PO Q8HR PRN 7 Days #21 tab PRN Reason: Nausea Is patient prescribed a controlled substance at d/c from ED?: No Referrals: Francesco Wood MD [Primary Care Provider] - 1-2 days Time of Disposition: 12:30
[2022-10-08] MEDS ORDERED: ONDANSETRON 4 MG/2 ML VIAL IVP STA (10:39)
[2022-10-08 10:46] LABS: Basophils % (A) 0 %; Eosinophils # (A) 0.2 k/uL (0-0.7); Eosinophils % (A) 2 %; HCT 39.5 % (34.0-46.0); HGB 12.4 gm/dL (11.4-16.0); Hypochromasia Moderate; Lymphocytes # (A) 2.3 k/uL (1.0-4.8); Lymphocytes % (A) 24 %; MCH 25.3 pg (25.0-35.0); MCHC 31.5 g/dL (31.0-37.0); MCV 80.2 fL (80.0-100.0); Mean Platelet Volume 6.8; Monocytes # (A) 0.3 k/uL (0-1.0); Monocytes % (A) 3 %; Neutrophils # (A) 6.9 k/uL (1.3-7.7); Neutrophils % (A) 70 %; Platelet Count 429 k/uL (150-450); RBC 4.92 m/uL (3.80-5.40); RDW 15.7 % (11.5-15.5); WBC 9.8 k/uL (3.8-10.6)
[2022-10-08 10:55] LABS: INR 0.9 (<1.2); Partial Thromboplastin Time 24.2 sec (22.0-30.0); Prothrombin Time 9.8 sec (9.0-12.0)
[2022-10-08 11:03] LABS: ALT 21 U/L (4-34); AST 25 U/L (14-36); African American GFR (CKD) >90 (>60 ml/min/1.73 sqM); Albumin 4.2 g/dL (3.5-5.0); Alkaline Phosphatase 95 U/L (38-126); Amylase 48 U/L (30-110); Anion Gap 11 mmol/L; Blood Urea Nitrogen 10 mg/dL (7-17); Calcium 9.4 mg/dL (8.4-10.2); Carbon Dioxide 20 mmol/L (22-30); Chloride 108 mmol/L (98-107); Glucose 97 mg/dL (74-99); Lipase 271 U/L (23-300); Non-African American GFR(CKD) >90 (>60 ml/min/1.73 sqM); Potassium 4.5 mmol/L (3.5-5.1); Sodium 139 mmol/L (137-145); Total Bilirubin 0.5 mg/dL (0.2-1.3); Total Protein 7.7 g/dL (6.3-8.2)
--- NOTE | 2022-10-08 11:36 | CT ---
EXAMINATION TYPE: CT abdomen pelvis w con DATE OF EXAM: 10/08/2022 COMPARISON: NONE HISTORY: 52-year-old female LUQ pain, RLQ abdominal pain TECHNIQUE: Contiguous axial scanning of the abdomen and pelvis following administration of 100 ml Iso magdalena 300 IV contrast. Delayed images through the kidneys and coronal/sagittal reconstructions perform ed. CT DLP: 1419.5 mGycm Automated exposure control for dose reduction was used. FINDINGS: The heart is upper limits of normal in size without pericardial effusion. Minimal emphysematous rahman e noted. Tiny 3 mm lateral left lower lobe pulmonary nodule, axial image 8 of questionable clinical s ignificance. No pleural effusion. Liver is enlarged measuring 20.3 cm with diffuse low-attenuation. No focal liver lesion or biliary du ctal dilatation. Portal venous system is patent. Gallbladder, adrenal glands, kidneys, spleen, and pancreas within normal limits. No dilated small bowel, free fluid, or free air. Mildly enlarged right lower quadrant mesenteric lymph node measuring 1.1 cm, probably reactive/post i nflammatory. A couple prominent left para-aortic lymph nodes at the level of the kidneys measuring up to 8 mm. Short segments of a normal appendix are visualized. Mild overall stool burden. No pericolonic inflamm atory change. Mild atherosclerotic calcifications infrarenal abdominal aorta. Bladder urine distended. Uterus anteverted. Both ovaries are visualized. Pelvic phleboliths. No abnor mal fluid collection in the pelvis or pelvic lymphadenopathy. Bones: Mild degenerative change at the hips. Facet arthropathy particularly on the right in the lower lumbar spine. IMPRESSION: 1. HEPATOMEGALY (20.3 CM) WITH AT LEAST MODERATE HEPATIC STEATOSIS. CORRELATE WITH LFT's, LIPID PROFI LE, AND PATIENT RISK FACTORS. 2. A MILDLY ENLARGED LYMPH NODE IN THE RIGHT LOWER QUADRANT MESENTERY MEASURING UP TO 1.1 CM LIKELY R EACTIVE/POST INFLAMMATORY. 3. OTHERWISE, NO ACUTE INFLAMMATORY PROCESS IDENTIFIED IN THE ABDOMEN OR PELVIS TO EXPLAIN THE PATIEN T'S SYMPTOMS.
[2022-10-08 11:52] VITALS: TEMP 97.9
[2022-10-08 13:35] VITALS: BP 116/82; PULSE 78
== END 2022-10-08 13:40 | disposition home or self-care (01) ==
LOC: EC 09:45
DX: R10.11 Right upper quadrant pain (principal); R10.13 Epigastric pain; R11.2 Nausea with vomiting, unspecified; R16.0 Hepatomegaly, not elsewhere classified; R59.9 Enlarged lymph nodes, unspecified; E11.9 Type 2 diabetes mellitus without complications; I10 Essential (primary) hypertension; J44.9 Chronic obstructive pulmonary disease, unspecified; K21.9 Gastro-esophageal reflux disease without esophagitis; F17.200 Nicotine dependence, unspecified, uncomplicated; Z79.84 Long term (current) use of oral hypoglycemic drugs; Z79.899 Other long term (current) drug therapy; Z86.16 Personal history of COVID-19
CPT/HCPCS: 36415; 80053; 82150; 83605; 83690; 85025; 85610; 85730; 82272; 74177; 99285; 96374; 96375; J2270; J2405; Q9967

== ENCOUNTER → 2022-10-21 | Outpatient (CLI) | payer OTHER ==
[2022-10-21 17:35] LABS: BUN/Creat Ratio 16.38 Ratio (12.00-20.00); Blood Urea Nitrogen 13.1 mg/dL (9.0-27.0); Calcium 9.9 mg/dL (8.7-10.3); Chloride 104 mmol/L (96-109); Glucose 113 mg/dL (70-110); Sodium 140 mmol/L (135-145)
== END | disposition home or self-care (01) ==
LOC: LABWHC1 07:22
PROVIDERS: ATTEND Internal Medicine
DX: E11.65 Type 2 diabetes mellitus with hyperglycemia (principal); J44.9 Chronic obstructive pulmonary disease, unspecified; E87.8 Other disorders of electrolyte and fluid balance, not elsewhere classified
CPT/HCPCS: 36415; 80048; 82306; 83036

== ENCOUNTER → 2023-03-28 | Outpatient (CLI) | payer OTHER ==
[2023-03-28 11:34] LABS: C-Peptide 3.56 ng/mL (0.81-3.85)
== END | disposition home or self-care (01) ==
LOC: LABWHC1 07:02
PROVIDERS: ATTEND Internal Medicine
DX: E11.65 Type 2 diabetes mellitus with hyperglycemia (principal)
CPT/HCPCS: 36415; 82947; 83036; 83525; 84681

== ENCOUNTER → 2023-05-27 | Outpatient (CLI) | payer OTHER ==
[2023-05-28 04:23] LABS: BUN/Creat Ratio 22.12 Ratio (12.00-20.00); Blood Urea Nitrogen 17.7 mg/dL (9.0-27.0); Chloride 106 mmol/L (96-109); Glucose 105 mg/dL (70-110); Sodium 143 mmol/L (135-145)
[2023-05-28 04:24] LABS: ALT 21 U/L (8-44); AST 12 U/L (13-35); Albumin 4.4 g/dL (3.8-4.9); Albumin/Globulin Ratio 1.38 Ratio (1.60-3.17); Alkaline Phosphatase 93 U/L (41-126); Calcium 9.7 mg/dL (8.7-10.3); Carbon Dioxide 23.7 mmol/L (21.6-31.8); Globulin 3.2 g/dL (1.6-3.3); Total Bilirubin <0.2 mg/dL (0.3-1.2); Total Protein 7.6 g/dL (6.2-8.2)
[2023-05-28 05:00] LABS: HCT 41.5 % (37.2-46.3); HGB 12.2 g/dL (12.0-15.0); MCH 23.2 pg (27.0-32.0); MCHC 29.4 g/dL (32.0-37.0); Mean Platelet Volume 9.2 FL (9.5-12.2); NRBC Per 100 WBC 0 X 10*3/uL (0.00-0.01); Platelet Count 546 X 10*3/uL (140-440); RBC 5.25 X 10*6/uL (4.10-5.20); RDW 19.5 % (11.5-14.5); WBC 19.83 X 10*3/uL (4.50-10.00)
[2023-05-28 05:38] LABS: Eosinophils # (M) 0 X 10*3/uL (0.04-0.35); Lymphocytes # (M) 5.95 X 10*3/uL (0.90-5.00); Monocytes # (M) 0.79 X 10*3/uL (0.20-1.00); Neutrophils # (M) 12.89 X 10*3/uL (1.80-7.70); Neutrophils % (M) 65 %
== END | disposition home or self-care (01) ==
LOC: LABWHC1 14:33
PROVIDERS: ATTEND Internal Medicine
DX: A09 Infectious gastroenteritis and colitis, unspecified (principal); J06.9 Acute upper respiratory infection, unspecified
CPT/HCPCS: 36415; 80053; 85025

== ENCOUNTER → 2023-09-08 | Outpatient (CLI) | payer OTHER ==
--- NOTE | 2023-09-08 09:34 | XR ---
EXAMINATION TYPE: XR chest 2V DATE OF EXAM: 09/08/2023 HISTORY: Shortness of breath. COMPARISON: None. TECHNIQUE: Single view of the chest is submitted. FINDINGS: Demonstrated are scattered senescent parenchymal change. There is no evidence for focal infiltrate. Interstitial prominence suggested which may reflect inters titial pneumonia or atypical pneumonia. Correlate clinically and progress studies recommended. The heart is stable. Hilar and mediastinal structures are within normal limits. Degenerative changes are seen of the dorsal spine. IMPRESSION: 1. Interstitial prominence suggested which may reflect interstitial pneumonia or atypical pneumonia. Correlate clinically and progress studies recommended.
[2023-09-08 14:38] LABS: Basophils # (A) 0.04 X 10*3/uL (0.00-0.10); Basophils % (A) 0.5 %; Eosinophils # (A) 0.11 X 10*3/uL (0.04-0.35); Eosinophils % (A) 1.4 %; HCT 38.2 % (37.2-46.3); HGB 11.4 g/dL (12.0-15.0); Lymphocytes # (A) 2.73 X 10*3/uL (0.90-5.00); Lymphocytes % (A) 34.8 %; MCH 23.5 pg (27.0-32.0); MCHC 29.8 g/dL (32.0-37.0); MCV 78.8 FL (80.0-97.0); Mean Platelet Volume 9.1 FL (9.5-12.2); Monocytes # (A) 0.39 X 10*3/uL (0.20-1.00); NRBC Per 100 WBC 0 X 10*3/uL (0.00-0.01); Neutrophils # (A) 4.57 X 10*3/uL (1.80-7.70); Neutrophils % (A) 58.2 %; Platelet Count 494 X 10*3/uL (140-440); RBC 4.85 X 10*6/uL (4.10-5.20); RDW 17.2 % (11.5-14.5); WBC 7.85 X 10*3/uL (4.50-10.00)
[2023-09-08 15:19] LABS: ALT 16 U/L (8-44); AST 18 U/L (13-35); Albumin 4.2 g/dL (3.8-4.9); Alkaline Phosphatase 91 U/L (41-126); Amylase 41 U/L (23-121); Blood Urea Nitrogen 10.4 mg/dL (9.0-27.0); Calcium 9.4 mg/dL (8.7-10.3); Carbon Dioxide 22.3 mmol/L (21.6-31.8); Chloride 108 mmol/L (96-109); Chol/HDL Ratio 4.17 Ratio; Glucose 102 mg/dL (70-110); LDL Cholesterol,Calculated 63.2 mg/dL (0.0-131.0); Lipase 50 U/L (14-63); Potassium 4.3 mmol/L (3.5-5.5); Sodium 143 mmol/L (135-145); Total Bilirubin <0.2 mg/dL (0.3-1.2); Total Protein 7.2 g/dL (6.2-8.2)
== END | disposition home or self-care (01) ==
LOC: LABWHC1 08:58
PROVIDERS: ATTEND Internal Medicine
DX: I10 Essential (primary) hypertension (principal); J44.9 Chronic obstructive pulmonary disease, unspecified; K57.92 Diverticulitis of intestine, part unspecified, without perforation or abscess without bleeding; K59.00 Constipation, unspecified; E78.5 Hyperlipidemia, unspecified; E03.9 Hypothyroidism, unspecified; E66.9 Obesity, unspecified; D72.829 Elevated white blood cell count, unspecified; R06.02 Shortness of breath; R10.84 Generalized abdominal pain
CPT/HCPCS: 36415; 71046; 80053; 80061; 82150; 82164; 83036; 83690; 83735; 84443; 85025

== ENCOUNTER → 2023-12-14 | Outpatient (CLI) | payer OTHER ==
--- NOTE | 2023-12-14 10:46 | CT ---
INDICATION: Patient age:Female; 53 years old; Reason for study: J84.9 INTERSTITIAL PULMONARY DISEASE; [facility]. COMPARISON: CT chest 08/27/2020, chest radiograph 09/08/2023 TECHNIQUE: Multiple thin axial images were obtained through the chest at selected intervals. Prone and supine in spiratory along with supine expiratory images were submitted for review. Please note that due to inte rval acquisition images as defined by high-resolution CT protocol the entire lung parenchyma is not e valuated, therefore small nodular densities may not be visualized. Evaluation of vascular structures , viscera and lymphatics is limited due to lack of intravenous contrast administration. One or more C T dose reduction strategies were utilized during this examination. Total DLP 1234.90 mGycm. FINDINGS: LUNGS: There is no evidence of honeycombing or architectural distortion in the lungs. Decreased scatt ered groundglass reticular opacities from prior exam. Scattered regions of interstitial thickening. I ncreased mild centrilobular and emphysematous changes. Demonstrated upper lobe predominance. Diffuse bronchial dilatation. Increased size of pleural-based anterior right midlung 1.0 x 0.8 cm pulmonary n odule (series 8, image 95). Previously 0.9 x 0.7 cm. Additional scattered few pulmonary nodules with exams including a left lower lobe 4 mm pulmonary nodule (series 8, image 123), stable right midlung 6 mm nodule (series 8, image 129). No acute area of infiltrative or consolidative change. Increased a ttenuation throughout the lungs on expiratory phase consistent with air trapping. LARGE AIRWAYS: Diffuse bronchial wall thickening. Central airways are patent. No dynamic airway mike apse on expiratory imaging. PLEURA: No pleural effusion or thickening. HEART AND PERICARDIUM: The heart is mildly enlarged. There is no pericardial effusion. Mild coronary artery calcifications present. MEDIASTINUM AND LENKA: The bilateral lenka redemonstrated suggesting lymphadenopathy. Mildly enlarged m ediastinal lymph nodes are demonstrated. VESSELS: The thoracic aorta is normal in course and caliber. CHEST WALL AND DIAPHRAGM: Normal. LOWER NECK: Normal. UPPER ABDOMEN: Unremarkable. MUSCULOSKELETAL: No acute fracture. IMPRESSION: 1. Increased size of anterior right midlung pleural-based 1 cm pulmonary nodule, previously 0.8 cm. Additional several smaller scattered pulmonary nodules redemonstrated. Recommend further evaluation w ith PET/CT. 2. Increased mild COPD changes with decreased groundglass/reticular opacities from prior exam. 3. Diffuse bronchial dilatation with wall thickening suggestive of bronchiolitis. 4. Similar mediastinal and bilateral hilar adenopathy. [facility], , 12/14/2023 10:44 AM
== END | disposition home or self-care (01) ==
LOC: RADCTMAIN 08:53
PROVIDERS: ATTEND Internal Medicine Critical Care Medicine
DX: J84.9 Interstitial pulmonary disease, unspecified
CPT/HCPCS: 71250

== ENCOUNTER → 2024-01-05 | Outpatient (CLI) | payer OTHER ==
--- NOTE | 2024-01-06 11:58 | PE ---
EXAMINATION TYPE: PET CT fusion skull to thigh DATE OF EXAM: 01/05/2024 CLINICAL INDICATION:Female, 53 years old with history of R91.1 nodule; TECHNIQUE: Following the intravenous administration of 8.17 mCi of F-18 FDG, whole body images are performed from the skull base to the midthigh. Images are reviewed on the computer in the coronal, a xial, and sagittal planes. Reconstructed rotating images are created on independent workstation and reviewed on the computer. A non-contrast CT is performed in conjunction with the PET scan. Glucose level 93 mg/dL CT DLP: 823.60 mGycm, Automated exposure control for dose reduction was used. COMPARISON: CT 12/14/2023, PET/CT None, MRI: None FINDINGS: Mediastinal SUV mean is 2.2. Hepatic parenchyma SUV mean is 3.3. SKULL BASE AND NECK: Suspicious uptake posterior to the pharynx near the adenoids at the level of the nasal pharynx max PENALOZA V 9.1 uptake within the palatine tonsils max SUV 11.2 CHEST, MEDIASTINUM, AND HILAR REGION: Suspicious uptake identified examples include: Right low paratracheal lymph node max SUV 5.3 right pulmonary hilum uptake max is a 5.8 Right 11.4 mm pulmonary nodule Max SUV 3.6 ABDOMEN AND PELVIS: No suspicious radiotracer activity. MUSCULOSKELETAL STRUCTURES: No suspicious radiotracer activity. OTHER CT: Mild cardiomegaly. Coronary atherosclerosis. Mild pulmonary edema. Pulmonary arterial hyper tension fat-containing umbilical hernia. Nonobstructing right renal contrast versus atherosclerosis. IMPRESSION: 1. Suspicious uptake within the right pulmonary nodule measuring 11.4 mm with mild uptake in the rig ht pulmonary hilum and right low paratracheal lymph nodes. Given evidence of heart failure lymphadeno sruthi could also be secondary to heart failure. 2. Elevated uptake within the palatine tonsils and adenoids correlate for tonsillitis/adenitis. 3. 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 [facility], Workstation: [id number], 01/06/2024 11:56 AM
== END | disposition home or self-care (01) ==
LOC: RADPETMAIN 12:50
PROVIDERS: ATTEND Internal Medicine Critical Care Medicine
CPT/HCPCS: 78815

== ENCOUNTER → 2024-06-11 | Outpatient (CLI) | payer OTHER ==
[2024-06-11 10:35] LABS: Basophils # (A) 0.07 X 10*3/uL (0.00-0.10); Basophils % (A) 0.6 %; Eosinophils # (A) 0.09 X 10*3/uL (0.04-0.35); Eosinophils % (A) 0.8 %; HCT 43.2 % (37.2-46.3); HGB 12.5 g/dL (12.0-15.0); Lymphocytes # (A) 3.46 X 10*3/uL (0.90-5.00); Lymphocytes % (A) 29.7 %; MCH 23.1 pg (27.0-32.0); MCHC 28.9 g/dL (32.0-37.0); MCV 79.9 FL (80.0-97.0); Mean Platelet Volume 8.9 FL (9.5-12.2); Monocytes # (A) 0.65 X 10*3/uL (0.20-1.00); Monocytes % (A) 5.6 %; NRBC Per 100 WBC 0 X 10*3/uL (0.00-0.01); Neutrophils # (A) 7.33 X 10*3/uL (1.80-7.70); Platelet Count 514 X 10*3/uL (140-440); RBC 5.41 X 10*6/uL (4.10-5.20); RDW 19.3 % (11.5-14.5); WBC 11.64 X 10*3/uL (4.50-10.00)
[2024-06-11 10:43] LABS: ALT 16 U/L (8-44); AST 17 U/L (13-35); Albumin 4.3 g/dL (3.8-4.9); Albumin/Globulin Ratio 1.26 Ratio (1.60-3.17); Alkaline Phosphatase 101 U/L (41-126); BUN/Creat Ratio 15.29 Ratio (12.00-20.00); Blood Urea Nitrogen 10.7 mg/dL (9.0-27.0); Calcium 9.7 mg/dL (8.7-10.3); Carbon Dioxide 24.3 mmol/L (21.6-31.8); Chloride 102 mmol/L (96-109); Globulin 3.4 g/dL (1.6-3.3); Glucose 105 mg/dL (70-110); Sodium 138 mmol/L (135-145); Total Bilirubin 0.2 mg/dL (0.3-1.2); Total Protein 7.7 g/dL (6.2-8.2)
== END | disposition home or self-care (01) ==
LOC: LABWHC1 07:19
PROVIDERS: ATTEND Internal Medicine
DX: R42 Dizziness and giddiness (principal); H92.03 Otalgia, bilateral
CPT/HCPCS: 36415; 80053; 83036; 85025